=== PATIENT | female | born 1985 | race Caucasian/White ===

== ENCOUNTER 2021-08-13 14:43 | Emergency (ER) | payer OTHER, SELFPAY ==
[2021-08-13 14:49] VITALS: BP 131/95; PULSE 92; RESP 18; TEMP 36.6; O2SAT 99
--- NOTE | 2021-08-13 15:29 | ED.URI ---
HPI - URI/Sore Throat General Chief Complaint: Upper Respiratory Infection Stated Complaint: Cough, runny congestion Source: patient Mode of arrival: ambulatory Limitations: no limitations History of Present Illness HPI Narrative: 35-year-old female presents to express care with complaints of intermittent cough, wheezing, congestion and fatigue for the past 6 days. Patient has been taking [id number] cold medications with minimal relief. Patient reports that her fianc? recent similar symptoms. Patient does smoke. Patient denies recent travel. MD elicited complaint: cough and nasal congestion Onset (ago): day(s) (6) Able to tolerate fluids by mouth: No Related Data Allergies Allergy/AdvReac Type Severity Reaction Status Date / Time ibuprofen [From Advil] Allergy Swelling Verified 08/24/19 13:26 of Lip/Tongue/Throat loratadine [From Claritin] Allergy Unknown Verified 08/24/19 13:26 naproxen [From Aleve] Allergy Swelling Verified 08/24/19 13:26 of Lip/Tongue/Throat Penicillins Allergy Unknown Verified 08/24/19 13:26 Review of Systems Constitutional: Constitutional: Denies chills, Denies fever(s) and Denies weakness ENT: Reports nasal congestion and Denies sore throat Cardiovascular: Cardiovascular: Denies chest pain, Denies rapid heart rate, Denies radiating jaw, neck or arm pain and Denies slow heart rate Respiratory: Respiratory: Reports cough, Denies dyspnea and Reports wheezing Gastrointestinal: Gastrointestinal: Denies diarrhea, Denies nausea and Denies vomiting Integumentary/Breasts: Skin/Breast: Denies rash PMFSH Past Medical History Medical History Depression IBS (irritable bowel syndrome) Kidney stone PCOS (polycystic ovarian syndrome) Pulmonary embolism Surgical History Surgical History History of cholecystectomy Family History Family History Mother Hypertension Father Hypertension Grandparent , 72 Breast cancer Diabetes mellitus Cerebrovascular accident Grandparent , 83 Mesothelioma Grandparent Lung cancer Cancer of kidney Grandparent , 81 Diabetes mellitus Sibling Hypertension Social History Social History Years smoked: 15 Smoking status: Current every day smoker Tobacco type: cigarettes Alcohol intake: current Alcohol use details: once a month Substance use type: does not use Comments At time of signature, I agree with nursing past medical, surgical, social and family history. There is no relevant family history pertinent to the presenting complaint. Exam Const: General: healthy appearing and no acute distress Orientation/consciousness: patient oriented x3 HENMT: Head: normal to inspection Ears: TM's normal bilaterally and EAC's normal General nose exam: Normal external nose present and Normal nares present Face and sinus: normal facial exam Mouth: Yes moist mucous membranes Throat: uvula midline Neck: Neck: normal visual inspection Resp: Effort & Inspection: normal respiratory effort, not labored and not tachypneic Auscultation: clear to auscultation bilaterally, no rales, no rhonchi and no wheezes Cardio: Rate: regular rate Rhythm: regular rhythm Skin: General skin exam: normal color Rashes: no rashes Neuro: General: moves all extremities Psych: Affect: normal affect Attitude: cooperative Course Course Level of Care: Express Care Visit Vital Signs Vital signs: Vital Signs Temperature 36.6 C 08/13/21 14:49 Pulse Rate 92 08/13/21 14:49 Respiratory Rate 18 08/13/21 14:49 Blood Pressure 131/95 H 08/13/21 14:49 Pulse Oximetry 99 08/13/21 14:49 Temperature 36.6 C 08/13/21 14:49 Pulse Rate 92 08/13/21 14:49 Respiratory Rate 18
== END 2021-08-13 16:18 | disposition home or self-care (01) ==
PROVIDERS: Emergency Provider Nurse Practitioner Family
DX: J06.9 Acute upper respiratory infection, unspecified (principal); Z20.822 Contact with and (suspected) exposure to COVID-19; F17.210 Nicotine dependence, cigarettes, uncomplicated; E28.2 Polycystic ovarian syndrome; Z86.711 Personal history of pulmonary embolism
CPT/HCPCS: 87426; 99213; C9803; G0463

== ENCOUNTER 2023-03-07 16:02 | Emergency (ER) | payer OTHER, SELFPAY ==
--- NOTE | ~2023-03-07 | XR_ITS ---
EXAM: XR abdomen/kub 1V DATE: 03/07/2023 17:32 HISTORY: RT FLANK PAIN X 2 WEEKS. . COMPARISON: 06/14/2019. FINDINGS: Cholecystectomy clips Clear lung bases. Normal bowel gas pattern. No organomegaly. No abnor mal abdominal calcification. Regional bones and soft tissues normal for age. IMPRESSION: Unremarkable abdominal radiograph findings. Reviewed, dictated and finalized at location K.
[2023-03-07 16:13] VITALS: BP 129/76; PULSE 95; RESP 20; TEMP 37.3; O2SAT 100
--- NOTE | 2023-03-07 16:46 | ED.FEMALEGU ---
HPI - Female Genitourinary General Chief complaint: Urogenital-Female Stated complaint: Urinary Problem Time Seen by Provider: 03/07/23 16:46 Source: patient Mode of arrival: ambulatory Limitations: no limitations History of Present Illness HPI Narrative: 37 yo F presents with c/o R sided low back pain with urinary frequency, urgency, dysuria for 4 days. R back pain worse when urinating. Afebrile. Denies N/V/D. hx of kidney stones. All systems reviewed and negative except as noted above. Related Data Allergies Allergy/AdvReac Type Severity Reaction Status Date / Time ibuprofen [From Advil] Allergy Swelling Verified 03/07/23 16:21 of Lip/Tongue/Throat loratadine [From Claritin] Allergy Unknown Verified 03/07/23 16:21 naproxen [From Aleve] Allergy Swelling Verified 03/07/23 16:21 of Lip/Tongue/Throat Penicillins Allergy Unknown Verified 03/07/23 16:21 E[employer] MEDICINE Allergy Other Uncoded 03/07/23 16:21 Review of Systems Review of Systems: CONSTITUTIONAL: Denies fever, chills, or sweats. EYES: Denies visual changes, redness, or discharge. ENT: Denies rhinorrhea, congestion, sore throat, or otalgia. CARDIOVASCULAR: Denies chest pain, palpitations, or edema. RESPIRATORY: Denies cough or dyspnea. GASTROINTESTINAL: Denies abdominal pain, nausea, vomiting, or diarrhea. GENITOURINARY: Reports dysuria frequency, right flank pain. Denies hematuria. SKIN: Denies rash or itching. MUSCULOSKELETAL: Denies back pain, joint pain, or myalgia. NEUROLOGIC: Denies headache, numbness, or weakness. PSYCHIATRIC: Denies anxiety or depression. All other systems reviewed are negative, except as documented in HPI. [facility] Past Medical History Medical History Depression IBS (irritable bowel syndrome) Kidney stone PCOS (polycystic ovarian syndrome) Pulmonary embolism Surgical History Surgical History History of cholecystectomy Family History Family History Mother Hypertension Father Hypertension Grandparent , 72 Breast cancer Diabetes mellitus Cerebrovascular accident Grandparent , 83 Mesothelioma Grandparent Lung cancer Cancer of kidney Grandparent , 81 Diabetes mellitus Sibling Hypertension Social History Social History Years smoked: 15 Smoking status: Current every day smoker Tobacco type: cigarettes Alcohol intake: current Alcohol use details: once a month Substance use type: does not use Comments At time of signature, agree with nursing past medical, surgical, social and family history. There is no relevant family history pertinent to the presenting complaint. Exam Narrative: GENERAL: This is a well-nourished, well-developed patient, in no apparent distress. HEAD: normocephalic, atraumatic. EYES: PERRL. Sclera clear/white. Vision is grossly intact. EARS: External ears normal NOSE: External nose normal NECK: Neck supple, non-tender without lymphadenopathy, masses or thyromegaly. CARDIOVASCULAR: Regular rate and rhythm without murmurs, gallops, or rubs. RESPIRATORY: Clear to auscultation. Breath sounds equal bilaterally. No wheezes, rales, or rhonchi. GASTROINTESTINAL: Abdomen soft, non-tender, nondistended. Bowel sounds are active. No hepato-splenomegaly, or palpable masses. No guarding. SKIN: warm, Dry, intact with no suspicious lesions or rash, good texture and turgor. NEURO: awake, alert, and oriented to person, place and time. There were no obvious focal neurologic abnormalities. EXTREMITIES: No joint tenderness, effusion, or edema noted. BACK: Nontender without deformity. No CVA tenderness. Course Course Level of Care: Express Care Visit Vital Signs Vital signs: Vital Signs Temperatu
== END 2023-03-07 17:45 | disposition home or self-care (01) ==
PROVIDERS: Emergency Provider Nurse Practitioner Family
DX: N39.0 Urinary tract infection, site not specified (principal); F17.210 Nicotine dependence, cigarettes, uncomplicated; E28.2 Polycystic ovarian syndrome; Z86.711 Personal history of pulmonary embolism
CPT/HCPCS: 74018; 81003; 81025; 87086; 99213; G0463

== ENCOUNTER 2024-04-30 14:06 | Outpatient (CLI) | payer OTHER, SELFPAY ==
--- NOTE | ~2024-04-30 | XR_ITS ---
Supine and upright views of the abdomen Clinical history: Hematuria Findings: Bowel gas pattern is nonspecific. No evidence for obstruction or free air. There is an 8 mm ovoid stone at the left mid to lower pole. Osseous structures are intact. Impression: 8 mm mid to lower pole left renal stone. Reviewed, dictated and finalized at [facility]. Impression: 8 mm mid to lower pole left renal stone.
--- NOTE | ~2024-04-30 | CT_ITS ---
CT of the Abdomen and Pelvis: Indication: Gross hematuria Technique: 2.5 mm axial scans were obtained through the abdomen and pelvis prior to and following in travenous administration of 130 cc of Omnipaque 350. Dose reduction technique was used on this scan b y utilizing automated exposure control and iterative reconstruction technique. The dose-length produc t (DLP) was 3820.41 mGy-cm. Findings: Scans through the lung bases are unremarkable. The liver, spleen, pancreas, adrenals and right kidney are within normal limits. There is an 8 mm ovo id stone at the left renal pelvis. No hydronephrosis. Cholecystectomy clips are present. No evidence of aortic aneurysm. No lymphadenopathy. No bowel obstruction or bowel wall thickening. There is no evidence to suggest acute appendicitis. Images through the pelvis were performed. Urinary bladder unremarkable. No pelvic mass seen. No ascit es. Impression: 8 mm nonobstructing ovoid stone at the left renal pelvis. Reviewed, dictated and finalized at location . Impression: 8 mm nonobstructing ovoid stone at the left renal pelvis.
[2024-04-30 14:45] LABS: Estimated Glomerular Filt Rate > 60
== END 2024-04-30 14:07 | disposition home or self-care (01) ==
PROVIDERS: Visit Provider Urology
DX: N20.0 Calculus of kidney (principal)
CPT/HCPCS: 74018; 74178; Q9967

== ENCOUNTER 2024-05-09 15:03 | Outpatient (CLI) | payer OTHER, SELFPAY ==
--- NOTE | 2024-05-09 15:08 | ECG_ITS ---
Test Date: 2024-05-09 15:14:39 Measurements Intervals [place] Rate: 92 P: 29 ID: [id number] QRS: 14 QRSD: 87 T: 38 QT: 343 QTc: 425 Interpretive Statements SINUS RHYTHM NORMAL ELECTROCARDIOGRAM No previous ECG available for comparison Electronically Signed On 05-10-2024 07:51:48 CDT by Ruben Brown M.D.
[2024-05-09 15:31] LABS: Add Urine Microscopic? YES; Appearance Urine Clear (Clear); Bacteria Urine None Seen /hpf; Bilirubin Urine Negative (Negative); Blood Urine 3+ (Negative); Color Urine Yellow (Yellow); Glucose Urine UA Negative (Negative); Ketones Urine Negative (Negative); Leukocyte Esterase Ur Trace LEU/UL (Negative); Nitrate Urine Negative (Negative); Non Pathogenic Casts 0-2; Protein Urine Trace mg/dL (Negative); RBC Urine 21-50 /hpf (0-2); Specific Grav Ur 1.009 (1.001-1.035); Squamous Epithelial Cell Urine Occasional /hpf (Few); Urobilinogen Urine 0.2 mg/dL (<2.0); WBC Urine 0-5 /hpf (0-3); pH Urine 5.5 (5.0-9.0)
[2024-05-09 15:36] LABS: Prothrombin Time 13.3 Seconds (11.1-14.7)
[2024-05-09 15:37] LABS: Partial Thromboplastin Time 24.5 Seconds (22.3-36.8)
[2024-05-09 15:43] LABS: Anion Gap 8 mmol/L (4-12); Blood Urea Nitrogen 10 mg/dL (7-17); Calcium 8.8 mg/dL (8.4-10.2); Carbon Dioxide 24 mmol/L (22-30); Chloride 106 mmol/L (98-107); Estimated Glomerular Filt Rate > 60; Glucose 87 mg/dL (65-110); Potassium 3.7 mmol/L (3.4-5.0); Sodium 138 mmol/L (137-145)
== END 2024-05-09 15:04 | disposition home or self-care (01) ==
LOC: ANHSURGERY 15:06
PROVIDERS: Anesthesiology; PCP Family Medicine; Visit Provider Urology
DX: Z01.812 Encounter for preprocedural laboratory examination (principal); N20.0 Calculus of kidney; E11.9 Type 2 diabetes mellitus without complications
CPT/HCPCS: 36415; 80048; 81001; 85610; 85730; 93005

== ENCOUNTER 2024-05-11 04:24 | Day surgery (SDC) | payer OTHER, SELFPAY ==
[2024-05-09 12:00] VITALS: BMI 41.7
--- NOTE | 2024-05-09 12:01 | PC.NURSE ---
Report to the Outpatient Waiting Room, entrance under the green pavilion located off [facility], at time _1130_ on date _[id number]_. Planned Procedure Time: _130pm_.? Time changes happen often and if your time is changed the preop area will call you the afternoon before. - You and your visitor will be asked to self-screen and do not enter if you have any COVID symptoms. Please call surgeon if you need to reschedule. - A mask is optional within the hospital at this time. Patients may have clear liquids (water, carbonated beverages, clear teas, apple juice) until 3 hours prior to surgery with a maximum of 20 ounces. - No food from midnight until time of surgery and no smoking Take only the following medications with a SIP of water on the morning of surgery: __None DO NOT STOP ANY OF YOUR OTHER PRESCRIPTION MEDICATIONS PRIOR TO SURGERY EXCEPT THE FOLLOWING Medications to discontinue per physician __None Please no make-up, nail hebrew, hairspray, perfume, deodorant, or body powder the day of surgery.? No jewelry (including any body piercings) or valuables the day of surgery, leave them at home.? Please take a shower or bath the night before, or the morning of, surgery with an antibacterial soap.? Wear comfortable, loose fitting clothing.? - Jewelry must be removed prior to entering the operating room.? Rings and piercings that are not removed may be cut off. - The hospital will not accept responsibility for valuables.? - Please leave all valuables, including medications, at home the day of surgery. If you are going home after surgery, a licensed wedding transportation driver must drive you home.? - NO public transportation without another adult if you receive anesthesia. - We recommend that an adult stay with you for 24 hours following discharge. - We also recommend that you do not drive, make important decision, drink alcoholic beverages, or take any drugs that were not prescribed by your health care provider for at least 24 hours after your discharge time. Follow any additional instructions given to you from your surgeon. Telephone instructions given to __Mandi__and asked if any additional questions and then verbalized understanding. Patient advised to call surgeon office or pre surgery nurse liaison [phone] if any additional questions.
[2024-05-11] VITALS (8 sets, daily range): BP systolic 133–153; BP diastolic 85–104; PULSE 60–93; RESP 12–20; TEMP 37–37.3; O2SAT 94–100
--- NOTE | ~2024-05-11 | XR_ITS ---
EXAMINATION: XR abdomen/kub 1V DATE: 05/11/2024 12:01 INDICATION: Kidney stone. TECHNIQUE: A supine view of the abdomen on 2 radiographs was obtained. COMPARISON: Abdomen radiographs 04/30/2024, CT abdomen and pelvis 04/30/2024 FINDINGS: There are no dilated loops of bowel. Surgical clips in the right upper quadrant are likely from cholecystectomy. There is a 7 mm stone in left kidney. IMPRESSION: 1. 7 mm stone in left kidney. Reviewed, dictated and finalized at location A.
--- NOTE | 2024-05-11 06:34 | WPDHPUPDATE1 ---
History and Physical Update Update Date/Time: 05/11/24 06:34 History and Physical has been reviewed, including an updated exam of the patient. There are NO changes in the patient's condition. Risks, benefits, and alternatives have been discussed and questions answered. Patient agrees to proceed with procedure.
--- NOTE | 2024-05-11 10:12 | WPDANESEPPF ---
Anes - Initial Pre Proc Eval Procedure: Operation Date: 05/11/24 13:30 Proposed Procedures p Left Extracorporeal Shock Wave Lithotripsy - Hayden Serrato MD s Possible Cystoscopy, Left Stent Placement - Hayden Serrato MD Date/Time: 05/11/24 10:12 Surgeon: Hayden Serrato MD Pre Op Diagnosis: Left Renal Kidney Stone Patient Data Age: 38 Gender: F Height: 1.77 m Weight: 130 kg Allergies Allergy/AdvReac Type Severity Reaction Status Date / Time ibuprofen [From Advil] Allergy Swelling Verified 05/14/24 18:07 of Lip/Tongue/Throat loratadine [From Claritin] Allergy Unknown Verified 05/14/24 18:07 naproxen [From Aleve] Allergy Swelling Verified 05/14/24 18:07 of Lip/Tongue/Throat Penicillins Allergy Unknown Verified 05/14/24 18:07 [employer] MEDICINE Allergy Other Uncoded 05/14/24 18:07 Home Medications Medication Instructions Recorded Confirmed Type atorvastatin 10 mg tablet 10 mg PO HS 05/09/24 05/09/24 History escitalopram oxalate 10 mg tablet 10 mg PO HS 05/09/24 05/09/24 History metformin 500 mg tablet,extended 500 mg PO HS 05/09/24 05/09/24 History release 24 hr semaglutide 0.25 mg or 0.5 mg (2 0.5 mg subcut WEEKLY 05/09/24 05/09/24 History mg/3 mL) subcutaneous pen injector (Ozempic) hydrocodone 5 mg-acetaminophen 325 1 - 2 tablet PO Q6H PRN pain #20 05/11/24 Rx mg tablet tabs metoclopramide HCl 10 mg tablet 10 mg PO Q6H PRN nausea and 05/14/24 Rx (Reglan) vomiting #14 tabs ondansetron 4 mg disintegrating 4 mg PO Q8H PRN nausea and 05/14/24 Rx tablet vomiting #14 tabs oxycodone-acetaminophen 5 mg-325 1 tablet PO Q8H PRN pain #14 tabs 05/14/24 Rx mg tablet (Percocet) Patient hx anesthesia problems: none Family hx anesthesia problems: none Results Review: All pre-operative results and documents have been reviewed as part of the pre-operative evaluation. [facility] Past Medical History Medical History (Updated 05/15/24 @ 00:00 by Fariha Ge) Depression Diabetes type 2, controlled Hyperlipidemia IBS (irritable bowel syndrome) Kidney stone PCOS (polycystic ovarian syndrome) Pulmonary embolism Surgical History Surgical History History of cholecystectomy Family History Family History Mother Hypertension Father Hypertension Grandparent , 72 Breast cancer Diabetes mellitus Cerebrovascular accident Grandparent , 83 Mesothelioma Grandparent Lung cancer Cancer of kidney Grandparent , 81 Diabetes mellitus Sibling Hypertension Social History Social History Smoking packs per day: 1 Smoking cigarettes per day: 20.0 Years smoked: 14 Smoking pack-years: 14.00 Smoking status: Former smoker Tobacco type: cigarettes and e-cigarettes/vaping Additional smoking assessment comments: Vapes now. Alcohol intake: current Alcohol use details: once a month Substance use type: does not use Living arrangements: with family Spiritual care concerns: No Anes - Eval Final PreProcedure Day of Procedure 05/11/24 10:12 Patient weight: morbidly obese Heart: regular rate and rhythm Lungs: clear to auscultation Airway: Mallampati scale class II Neurological: alert and oriented Last oral intake: >/= 8 hours ASA classification: III Emergent: no Anesthetic plan: proceed Anesthesia type and monitoring: general LMA and standard monitoring Results Review: All pre-operative results and documents have been reviewed as part of the pre-operative evaluation. Informed Consent: The patient's anesthetic plan and its attendant risks and benefits were discussed with the patient/family/POA. Questions were solicited and answers provided to the satisfaction of the patient/family/POA.
[2024-05-11] MEDS: LACTATED RINGERS 1,000 ML 30 ML IV CONT (12:00)
--- NOTE | 2024-05-11 12:26 | P.PNAN_ITS ---
Anes - Eval Final PreProcedure Day of Procedure 05/11/24 12:26 Patient weight: morbidly obese Heart: regular rate and rhythm Lungs: clear to auscultation Airway: Mallampati scale class III Neurological: alert and oriented Last oral intake: >/= 8 hours ASA classification: III Emergent: no Anesthetic plan: proceed Anesthesia type and monitoring: general LMA and standard monitoring Results Review: All pre-operative results and documents have been reviewed as part of the pre- operative evaluation. Informed Consent: The patient's anesthetic plan and its attendant risks and benefits were discussed with the patient/family/POA. Questions were solicited and answers provided to the satisfaction of the patient/family/POA.
[2024-05-11 12:27] LABS: Glucose Point of Care 90 mg/dl (65-105)
[2024-05-11] MEDS: ceFAZolin 3 GM/D5W 100 ML 100 ML IVPB (12:39)
--- NOTE | 2024-05-11 12:56 | W.PM.PROC2 ---
Procedure Note - Detailed Date of Procedure 05/11/24 Pre-op Diagnosis Left Renal Stone Post-op Diagnosis Same Procedure Performed Left ESWL Surgeon Hayden Serrato MD Anesthesia General Description of Procedure The patient was brought to the operative suite where she was placed in the supine position on the Dornier lithotripsy table. The focal point of the lithotripter was placed at a 8mm left lower calyceal calculus. A total of 2500 shocks were delivered at a power setting of 4. There appeared to be good fragmentation of the stone. The patient tolerated the procedure well and was taken to the recovery room in good condition. Drains No Pathology None sent Complications No immediate complications Condition Stable Disposition PACU
[2024-05-11] MEDS: fentaNYL CITRATE INJ (*CRX) 100 MCG/2 ML VIAL 25 MCG IV PUSH ×2 (13:45→13:56)
--- NOTE | 2024-05-11 13:48 | SUR.PHASEI ---
1340: Simple mask removed.
[2024-05-11 13:56] LABS: Glucose Point of Care 80 mg/dl (65-105)
[2024-05-11] MEDS: ONDANSETRON INJ 4 MG/2 ML VIAL IV PUSH (14:43)
== END 2024-05-11 15:09 | disposition home or self-care (01) ==
PROVIDERS: PCP Family Medicine; Visit Provider Urology
PROC: (CPT 50590; principal; 2024-05-11 13:30)
DX: N20.0 Calculus of kidney (principal); E11.9 Type 2 diabetes mellitus without complications; E78.5 Hyperlipidemia, unspecified; F32.A Depression, unspecified; Z79.84 Long term (current) use of oral hypoglycemic drugs; Z79.85 Long-term (current) use of injectable non-insulin antidiabetic drugs; F17.290 Nicotine dependence, other tobacco product, uncomplicated; E66.01 Morbid (severe) obesity due to excess calories; Z68.41 Body mass index [BMI] 40.0-44.9, adult
CPT/HCPCS: 50590; 36415; 74018; 80048; 81001; 82948; 85610; 85730; 93005; J0690; J1100; J2003; J2405; J2704; J3010; J7120

== ENCOUNTER 2024-05-14 16:56 | Emergency (ER) | payer OTHER, SELFPAY ==
--- NOTE | ~2024-05-14 | XR_ITS ---
EXAMINATION: XR abdomen/kub 1V DATE: 05/14/2024 18:59 INDICATION: Left flank pain. TECHNIQUE: A supine view of the abdomen on 2 radiographs was obtained. COMPARISON: CT abdomen and pelvis 05/14/2024 FINDINGS: There are no dilated loops of bowel. There is a 3 mm stone in left kidney. There is a 3 mm stone at left ureterovesicular junction. Surgical clips in the right upper quadrant are likely from c holecystectomy. IMPRESSION: 1. 3 mm at the left ureterovesicular junction. 2. 3 mm in left kidney. Reviewed, dictated and finalized at location A.
--- NOTE | ~2024-05-14 | CT_ITS ---
EXAMINATION: CT abdomen pelvis wo con DATE: 05/14/2024 18:58 INDICATION: Left flank pain. TECHNIQUE: Computed tomography (CT) of the abdomen and pelvis was performed without intravenous contr ast. Automated exposure control and iterative reconstruction technique were employed. The dose-length product was 1683.24 mGy-cm. COMPARISON: CT abdomen and pelvis 04/30/2024 FINDINGS: The visualized portions of the lung bases demonstrate minimal atelectasis. Calcified right hilar lymph nodes are consistent with old granulomatous disease. No pleural effusion. The heart size is normal. No pericardial effusion. There is diffuse hepatic steatosis. There are changes of cholecys tectomy. Calcifications in the spleen are consistent with old granulomatous disease. The pancreas, ad renal glands, and right kidney are normal. There is a 3 mm stone in left kidney. There is mild left h ydronephrosis and hydroureter. There is a 3 mm stone at left ureterovesicular junction. There is dive rticulosis of the colon without evidence of diverticulitis. There are no dilated loops of bowel. The appendix is normal. There are no pathologically enlarged lymph nodes. There is no free intraperitonea l fluid. There is mild thoracic and lumbar spondylosis. There is mild chronic anterior wedging of mul tiple lower thoracic vertebral bodies. IMPRESSION: 1. 3 mm stone at left ureterovesicular junction with mild left hydronephrosis and hydroureter. 2. 3 mm nonobstructing left kidney stone. Reviewed, dictated and finalized at location A. IMPRESSION: 1. 3 mm stone at left ureterovesicular junction with mild left hydronephrosis a nd hydroureter. 2. 3 mm nonobstructing left kidney stone.
[2024-05-14 17:15] VITALS: BP 157/96; PULSE 59; RESP 16; TEMP 36.7; O2SAT 99
[2024-05-14 18:07] VITALS: BP 150/92; PULSE 67; RESP 15; O2SAT 98
[2024-05-14] MEDS: ONDANSETRON INJ 4 MG/2 ML VIAL IV PUSH (18:08)
[2024-05-14] MEDS: SODIUM CHLORIDE 0.9% IV 1,000 ML 999 ML IV CONT (18:08)
--- NOTE | 2024-05-14 18:12 | ED.BACK ---
HPI - Back Pain/Injury General Chief Complaint: Back Pain/Injury Stated Complaint: PAIN S/P LITHOTRIPSY Time Seen by Provider: 05/14/24 17:44 History of Present Illness HPI Narrative: 38-year-old female presented emergency department for evaluation for recurrent flank pain. Patient did have lithotripsy on Tuesday and states that while she was having some recurrent nausea her pain was controlled. Patient states that today she had worsening left flank pain and then had worsening nausea. Patient arrived to the emergency department looking uncomfortable. Related Data Home Medications Medication Instructions Recorded Confirmed atorvastatin 10 mg tablet 10 mg PO HS 05/09/24 05/09/24 escitalopram oxalate 10 mg tablet 10 mg PO HS 05/09/24 05/09/24 metformin 500 mg tablet,extended 500 mg PO HS 05/09/24 05/09/24 release 24 hr semaglutide 0.25 mg or 0.5 mg (2 0.5 mg subcut WEEKLY 05/09/24 05/09/24 mg/3 mL) subcutaneous pen injector (ZyrraempBiba) Allergies Allergy/AdvReac Type Severity Reaction Status Date / Time ibuprofen [From Advil] Allergy Swelling Verified 05/14/24 18:07 of Lip/Tongue/Throat loratadine [From Claritin] Allergy Unknown Verified 05/14/24 18:07 naproxen [From Aleve] Allergy Swelling Verified 05/14/24 18:07 of Lip/Tongue/Throat Penicillins Allergy Unknown Verified 05/14/24 18:07 [employer]ER[employer] MEDICINE Allergy Other Uncoded 05/14/24 18:07 Review of Systems Review of Systems: All systems reviewed & are unremarkable except as noted in HPI and below PMFSH Past Medical History Medical History (Updated 05/15/24 @ 00:00 by Fariha Ge) Depression Diabetes type 2, controlled Hyperlipidemia IBS (irritable bowel syndrome) Kidney stone PCOS (polycystic ovarian syndrome) Pulmonary embolism Surgical History Surgical History History of cholecystectomy Family History Family History Mother Hypertension Father Hypertension Grandparent , 72 Breast cancer Diabetes mellitus Cerebrovascular accident Grandparent , 83 Mesothelioma Grandparent Lung cancer Cancer of kidney Grandparent , 81 Diabetes mellitus Sibling Hypertension Social History Social History Smoking packs per day: 1 Smoking cigarettes per day: 20.0 Years smoked: 14 Smoking pack-years: 14.00 Smoking status: Former smoker Tobacco type: cigarettes and e-cigarettes/vaping Additional smoking assessment comments: Vapes now. Alcohol intake: current Alcohol use details: once a month Substance use type: does not use Living arrangements: with family Spiritual care concerns: No Exam Narrative: APPEARANCE: uncomfortable appearing HEAD: normocephalic, atraumatic. EYES: PERRLA/EOMI, conjunctivae clear. NOSE: Normal no drainage EARS:TMS clear with good light reflex. THROAT: Pharynx clear, no exudate. NECK: Supple. No adenopathy, no masses. RESPIRATORY: Airway patent, respirations nonlabored. Clear to auscultation bilaterally, no rales, rhonchi, wheezing. CARDIOVASCULAR: Regular rate and rhythm without murmurs rubs or gallops. ABDOMINAL: Soft, nontender, nondistended, normal bowel sounds MUSCULOSKELETAL: Moves all extremities. Strength/ROM intact, No edema, No calf tenderness. NEURO: Alert. Cranial nerves II through XII intact. grossly intact SKIN: Warm, dry. Normal Color Course Vital Signs Vital signs: Vital Signs Temperature 98.1 F 05/14/24 17:15 Pulse Rate 59 L 05/14/24 17:15 Respiratory Rate 16 05/14/24 17:15 Blood Pressure 157/96 H 05/14/24 17:15 Pulse Oximetry 99 05/14/24 17:15 Oxygen Delivery Room Air 05/14/24 17:15 Temperature 98.1 F 05/14/24 17:15 Pulse Rate 86 05/14/24 20:33 Respiratory Rate 18 05/14/24 20:33 Blood Pressure
[2024-05-14] MEDS: HYDROmorphone HCL INJ (*CRX) 1 MG/ML SYR 0.5 MG IV PUSH (18:30)
[2024-05-14 18:35] LABS: Hematocrit 42.6 % (37.0-47.0); Hemoglobin 14.5 g/dL (12.0-15.0); Mean Corpuscular Hemoglobin 31.8 pg (26-34); Mean Corpuscular Volume 93.4 fl (80-100); Mean Platelet Volume 11.3 fl (7.4-10.4); Platelet Count Result 233 k/mm3 (150-375); Red Blood Count 4.56 M/mm3 (4.2-5.4); Red Cell Distribution Width 12.5 % (11.5-14.5); White Blood Count 12.2 K/mm3 (4.5-10.0)
[2024-05-14] MEDS: METOCLOPRAMIDE HCL INJ 10 MG/2 ML VIAL IV PUSH (18:39)
[2024-05-14 18:46] LABS: Alanine Aminotransferase 34 U/L (6-35); Albumin Level 4.5 g/dL (3.5-5.1); Alkaline Phosphatase 78 U/L (38-126); Anion Gap 12 mmol/L (4-12); Aspartate Amino Transferase 25 U/L (14-36); Bilirubin,Total 0.6 mg/dL (0.2-1.3); Blood Urea Nitrogen 23 mg/dL (7-17); Calcium 9.5 mg/dL (8.4-10.2); Carbon Dioxide 25 mmol/L (22-30); Chloride 102 mmol/L (98-107); Estimated CRCL calculation 87 ml/min; Estimated Glomerular Filt Rate 55; Glucose 133 mg/dL (65-110); Potassium 3.9 mmol/L (3.4-5.0); Sodium 139 mmol/L (137-145)
[2024-05-14 19:21] VITALS: BP 150/86; PULSE 60; RESP 18; O2SAT 96
[2024-05-14] MEDS: diphenhydrAMINE HCl INJ 50 MG/ML VIAL 25 MG IV PUSH (19:34)
[2024-05-14] MEDS: HYDROmorphone HCL INJ (*CRX) 1 MG/ML SYR IV PUSH (19:35)
[2024-05-14 19:44] LABS: Add Urine Microscopic? YES; Appearance Urine Clear (Clear); Bacteria Urine Rare /hpf; Bilirubin Urine Negative (Negative); Blood Urine 2+ (Negative); Color Urine Yellow (Yellow); Glucose Urine UA Negative (Negative); Ketones Urine 1+ mg/dL (Negative); Leukocyte Esterase Ur Negative LEU/UL (Negative); Nitrate Urine Negative (Negative); Non Pathogenic Casts 0-2; Protein Urine Trace mg/dL (Negative); RBC Urine 21-50 /hpf (0-2); Squamous Epithelial Cell Urine Occasional /hpf (Few); WBC Urine 0-5 /hpf (0-3); pH Urine 5.5 (5.0-9.0)
[2024-05-14 20:33] VITALS: BP 169/90; PULSE 86; RESP 18; O2SAT 99
[2024-05-14] MEDS: oxyCODONE/ACETAMINOPHEN (*CRX) 5-325 MG TABLET 1 TABLET PO (20:38)
== END 2024-05-14 20:45 | disposition home or self-care (01) ==
PROVIDERS: Emergency Provider Emergency Medicine; PCP Family Medicine
DX: N13.2 Hydronephrosis with renal and ureteral calculous obstruction (principal); E11.9 Type 2 diabetes mellitus without complications; E78.5 Hyperlipidemia, unspecified; E28.2 Polycystic ovarian syndrome; K58.9 Irritable bowel syndrome, unspecified; F32.A Depression, unspecified; F17.290 Nicotine dependence, other tobacco product, uncomplicated; Z87.442 Personal history of urinary calculi; Z86.711 Personal history of pulmonary embolism; Z90.49 Acquired absence of other specified parts of digestive tract; Z79.85 Long-term (current) use of injectable non-insulin antidiabetic drugs; Z79.84 Long term (current) use of oral hypoglycemic drugs; Z79.899 Other long term (current) drug therapy
CPT/HCPCS: 36415; 74018; 74176; 80053; 81001; 85025; 96361; 96374; 96375; 96376; 99284; A9270; J1171; J1200; J2405; J2765; J7030

== ENCOUNTER 2024-05-22 14:16 | Outpatient (CLI) | payer OTHER, SELFPAY ==
--- NOTE | ~2024-05-22 | XR_ITS ---
XR abdomen/kub 1V 05/22/2024 14:30 INDICATION: Recent left-sided stone TECHNIQUE: KUB COMPARISON: Comparison to multiple prior studies sequentially, with oldest reviewed study dated 01/2023. FINDINGS: Bowel gas pattern is normal. There are cholecystectomy clips. There is no evidence of free air, mass, organomegaly, ascites or obstruction. No abnormal calculi are seen. The bones appear int act. IMPRESSION: 1: No acute abdominal abnormality identified. Reviewed, dictated and finalized at location B.
== END 2024-05-22 14:17 | disposition home or self-care (01) ==
LOC: ANHIMG 14:19
PROVIDERS: PCP Family Medicine; Visit Provider Urology
DX: N20.0 Calculus of kidney (principal)
CPT/HCPCS: 74018

== ENCOUNTER 2024-07-13 15:16 | Outpatient (CLI) | payer OTHER, SELFPAY ==
--- NOTE | ~2024-07-13 | MM_ITS ---
EXAMINATION: MM screening isaura BI w donna HISTORY: Screening TECHNIQUE: Craniocaudal and mediolateral oblique 3-D tomosynthesis images were obtained and synthetic 2-D images were generated. CAD analysis was submitted and interpreted. COMPARISON: No prior mammogram is available for comparison at this institution. BREAST PARENCHYMAL COMPOSITION: Not Dense: The breasts are almost entirely fatty. FINDINGS: There is no evidence of suspicious mass, calcification, or architectural distortion to sugg est malignancy in either breast. There has been no suspicious interval change. IMPRESSION: 1. No mammographic evidence of malignancy. 2. Recommend routine screening mammography in one year. BI-RADS Category 1: Negative Reviewed, dictated and finalized at location B. 'S MASTER
--- OUTSIDE RECORDS SUMMARY | 2024-07-17 01:24 | XMS_ITS | Encounter Summary ---
Author Organization [facility] Address [address] [email or web address] [address] Phone Care Team Providers Care Knowledge Analyst Name Role Phone Wesley Hardy MD Primary Care Provider [phone] Reason for Visit * Reason Comments New Patient * Consultation (Routine) - Canceled Specialty Diagnoses / Procedures Referred By Contac t Referred To Contact Obstetrics and Gynecology Diagnoses Polycystic ovaries Annual visit for general adult medical examination with abnormal findings Wesley Hardy MD Phone: tel: fax: Shena Tiwari MD Phone: tel: fax: Referral ID Status Reason Start Date Expiration Date Visits Requested Visits Authorized [id number] Canceled Specialty Services Required 04/20/2017 10/17/2017 12 12 Encounter Details Date Type Department Care Team (Late st Contact Info) Description 05/11/2017 3:00 PM CDT Office Visit [facility] [address] [email or web address] [address] Sehna Tiwari MD [address] [place] [id number] Encounter for gynecological examination without abnormal finding (Primary Dx); Polycystic ovarian syndrome Social History Tobacco Use Types Packs/Day Years Used Date Smoking Tobacco: Former Cigarettes 1 13.7 2 004 - 04/2017 Smokeless Tobacco: Never Alcohol Use Standard Drinks/Week Comments Yes 0 (1 standard drink = 0.6 oz pur e alcohol) Comments Unknown Sex and Gender Information Value Date Recorded Sex Assigned at Not on file 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 Gender Identity Not on file Sexual Orientation Not on file Occupation Industry Job Start Date Job End Date Not on file Not on file Not on file Not on file documented as of this encounter Last Filed Vital Signs Vital Sign Reading Time Taken Comments Blood Pressure 112/82 05/11/2017 2:45 PM CDT Pulse - - Temperature - - Respiratory Rate - - Oxygen Saturation - - Inhaled Oxygen Concentration - - Weight 118.4 kg (261 lb) 05/11/2017 2:45 PM CDT Height 176.5 cm (5' 9.5 ) 05/11/2017 2:45 PM CDT Body Mass Index 37.99 05/11/2017 2:45 PM CDT documented in this encounter Ordered Prescriptions Prescription Sig Dispense Quantity Refills Last Filled Start Date End Date medroxyPROGESTERon e (PROVERA) 10 mg tabletIndications: Polycystic ovarian syndrome Take 1 tablet (10 mg total) by mouth daily for 10 days. Each month 30 tablet 3 05/11/2017 05/21/2017 documented in this encounter Progress Notes * Shena Tiwari MD - 05/11/2017 3:00 PM CDT Well Woman Exam Subjective: Anny Rodriguez is a 31 y.o. 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 Last Pap 2014. Denies h/o abnormal. She reports a h/o PCOS diagnosed around 10 years when trying to conceive. EMB 2 years ago was normal, per patient. Last normal cycle was 08/2014. She stopped OCPs when had a blood clot in 2014. She was recently evaluated by endocrine, Dr. Goodwin. TSH, FT4, testosterone, DHEAS, LH, FSH, estradiol andprolactin were all WNL. Denies desire for at this time. Menstrual History: No LMP recorded (lmp unknown). Sexual History: OB History Para Term AB Living 0 0 0 0 0 0 SAB TAB Ectopic Multiple Live Births 0 0 0 0 0 Past Medical History: Diagnosis Date ??? Anxiety disorder Anxiety ??? HX OTHER MEDICAL ammenorhea Current Outpatient Prescriptions: ??? buPROPion (WELLBUTRIN) 100 mg tablet, Take 1 tablet (100 mg total) by mouth 2 (two) times a day., Disp: 60 tablet, Rfl: 11 ??? fluticasone (FLONASE) 50 mcg/actuation nasal spray, Administer 1 spray into each nostril daily., Disp: , Rfl: ??? hydrocortisone 1 % cream, Apply topically 2 (two) times a day., Disp: , Rfl: ??? medroxyPROGESTERone (PROVERA) 10 mg tablet, Take 1 tablet (10 mg total) by mouth daily for 10 days. Each month, Disp: 30 tablet, Rfl: 3 Allergies Allergen Reactions ??? Prochlorperazine Angioedema Reaction: FACIAL SWELLING, ??? Aleve Cold And Sinus [Naproxen-Pseudoephedrine] Unknown ??? Chlorpheniramine ??? Ibuprofen ??? Naproxen ??? Penicillin G ??? Penicillins ??? Pseudoephedrine ??? Venom-Honey Bee Unknown Family History Problem Relation Age of Onset ??? Diabetes type II Other Family history of Diabetes -Type II; ??? Hyperlipidemia Other Family history of Hyperlipidemia; ??? Hypertension Other Family history of Hypertension; ??? Pulmonary embolism Brother ??? Breast cancer Paternal Grandmother ??? Endometriosis Mother Social History Social History ??? Marital status: Spouse name: N/A ??? Number of children: 0 ??? Years of education: N/A Occupational History ??? [employer] Social History Main Topics ??? Smoking status: Former Smoker Packs/day: 1.00 Start date: 2003 Quit date: 04/2017 ??? Smokeless tobacco: Never Used ??? Alcohol use Yes ??? Drug use: No ??? Sexual activity: Yes Partners: Male Other Topics Concern ??? None Social History Narrative ??? None Review of Systems Constitutional: Negative for fatigue, fever and unexpected weight change. HENT: Negative for congestion, hearing loss, postnasal drip, tinnitus, trouble swallowing and voicechange. Eyes: Negative for visual disturbance. Respiratory: Negative for shortness of breath and wheezing. Cardiovascular: Negative for chest pain and palpitations. Gastrointestinal: Positive for diarrhea. Negative for abdominal pain, blood in stool, nausea and vomiting. Endocrine: Negative for cold intolerance and heat intolerance. Genitourinary: Positive for menstrual problem. Negative for dysuria, frequency, hematuria, urgency,vaginal bleeding and vaginal discharge. Musculoskeletal: Negative for arthralgias and back pain. Skin: Negative for rash. Neurological: Negative for dizziness, seizures, syncope and headaches. Psychiatric/Behavioral: Negative for sleep disturbance. The patient is not nervous/anxious. Objective: BP 112/82 Ht 176.5 cm (5' 9.5 ) Wt 261 lb (118.4 kg) LMP (LMP Unknown) BMI 37.99 kg/m?? Physical Exam Constitutional: She is oriented to person, place, and time. She appears well- developed and well-nourished. Genitourinary: Vagina normal and uterus normal. Right labia: normal. Left Labia: normal. No vaginal discharge found. Right adnexa normal. Left adnexa normal. Cervix: Normal exam. Genitourinary Comments: Pap collected. Cardiovascular: Normal rate and regular rhythm. Pulmonary/Chest: Effort normal and breath sounds normal. Right breast exhibits no mass. Left breastexhibits no mass. Abdominal: Soft. There is no tenderness. Musculoskeletal: She exhibits no edema or tenderness. Neurological: She is alert and oriented to person, place, and time. Skin: Skin is warm and dry. Psychiatric: She has a normal mood and affect. Her behavior is normal. Assessment and Plan: Anny Rodriguez is a 31 y.o. female who presents for a well woman exam. 1. Encounter for gynecological examination without abnormal finding Pap and HPV collected. Return for annual or PRN. 2. Polycystic ovarian syndrome Discussed diagnosis and management options. Reviewed recent normal labs and endocrine visit. Recommend Provera now to induce a cycle. Discussed long-term options to prevent prolonged amenorrhea, which increases risk of endometrial hyperplasia/malignancy. Recommend avoid estrogen given h/o pulmonaryembolus. Discussed progesterone only methods including daily v cyclic provera, Depo, Nexplanon or IUD. She elects for cyclic Provera. - medroxyPROGESTERone (PROVERA) 10 mg tablet; Take 1 tablet (10 mg total) by mouth daily for 10 days. Each month Dispense: 30 tablet; Refill: 3 Recommended screenings and preventive care discussed: Pap smear: Performed Diet and exercise discussed. Contraception reviewed. Shena Tiwari MD 05/11/2017 documented in this encounter Plan of Treatment Not on file documented as of this encounter Visit Diagnoses Diagnosis Encounter for gynecological examination without abnormal finding- Primary Polycystic ovarian syndrome Polycystic ovaries documented in this encounter Care Teams Knowledge Analyst Relationship Specialty Start Date End Date Wesley Hardy MD [address] [place] [address] [place] [id number] PCP - General Infectious Diseases 04/20/17 documented as of this encounter
--- OUTSIDE RECORDS SUMMARY | 2024-07-17 01:24 | XMS_ITS | Encounter Summary ---
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 - 08/04/2017 11:59 PM TOOL AND DIE MAKER/DESIGNER Hospital Encounter [facility] [address] [place] [address] Melanie Calix NP [address] [place] [address] Pain of left calf Discharge Disposition: Discharge to home or self care Social History Tobacco Use Types Packs/Day Years Used Date Smoking Tobacco: Former Cigarettes 1 13.7 2 - 04/2017 Smokeless Tobacco: Never Alcohol Use Standard Drinks/Week Comments Yes 0 (1 standard drink = 0.6 oz pur e alcohol) Comments Unknown Sex and Gender Information Value Date Recorded Sex Assigned at Not on file 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 hydrocortisone 1 % creamIndications: Eczema, unspecified type Apply topically 2 (two) times a day. buPROPion (WELLBUTRIN) 100 mg tabletIndications :Persistent mood disorder (HCC) Take 1 tablet (100 mg total) by mouth 2 (two) times a day. 60 tablet 11 04/20/2017 8 documented as of this encounter Discharge Disposition Disposition Code Departure Means Destination Discharge to home or self care documented in this encounter Plan of Treatment Not on file documented as of this encounter Procedures Procedure Name Priority Date/Time Associated Diagnosis Comments US VEIN DUPLEX LOWER EXTREMITY LEFT LIMITED Schedule Routine, Read Routine (OP Routine) 08/04/2017 11:37 AM TOOL AND DIE MAKER/DESIGNER Pain of left calf documented in this encounter Results * US Vein Duplex Lower Extremity Left (08/04/2017 11:37 AM TOOL AND DIE MAKER/DESIGNER) Anatomical Region Laterality Modality Vascular Left Ultrasound Impressions 08/04/2017 12:01 PM TOOL AND DIE MAKER/DESIGNER NORMAL ??LEFT ??LOWER EXTREMITY VENOUS DOPPLER STUDY. Electronically signed by: Garfield Resendez M.D. Narrative 08/04/2017 12:01 PM TOOL AND DIE MAKER/DESIGNER US VEIN DUPLEX LOWER EXTREMITY LEFT HISTORY: Pain in left lower leg. ??Left lower extremity pain and swelling. ??History of pulmonary embolism. COMPARISON: None available. FINDINGS: Left lower extremity venous Doppler interrogation reveals normal grayscale echogenicity, color flow and compressibility. ??No extraneous abnormalities are present. Procedure Note Garfield Resendez MD / Provider, MD Dane - 08/04/2017 US VEIN DUPLEX LOWER EXTREMITY LEFT HISTORY: Pain in left lower leg. Left lower extremity pain and swelling. History of pulmonary embolism. COMPARISON: None available. FINDINGS: Left lower extremity venous Doppler interrogation reveals normal grayscale echogenicity, color flow and compressibility. No extraneous abnormalities are present. IMPRESSION: NORMAL LEFT LOWER EXTREMITY VENOUS DOPPLER STUDY. Electronically signed by: Garfield Resendez M.D. us Melanie Calix TRAINING AND DEVELOPMENT ASSISTANT IMG US PROCEDURES Final Res ult documented in this encounter Visit Diagnoses Diagnosis Pain of left calf documented in this encounter Care Teams Construction Assistant Relationship Specialty Start Date End Date Wesley Hardy MD [address] [place] [address] PCP - General Infectious Diseases 04/20/17 documented as of this encounter
--- OUTSIDE RECORDS SUMMARY | 2024-07-17 01:24 | XMS_ITS | Referral Summary ---
Author Organization [facility] [address] Address [address] [place] [address] Phone Care Team Providers Care Mergers And Acquisitions Consultant Name Role Phone Wesley Hardy MD Primary Care Provider [phone] Allergies Active Allergy Reactions Criticality Noted Date Comments Naproxen-Pseudoephedrine Unknown Chlorpheniramine Penicillin G Penicillins Prochlorperazine Angioedema High Reaction: FACIAL SWELLING, Pseudoephedrine Venom-Honey Bee Unknown Medications fluticasone (FLONASE) 50 mcg/actuation nasal sprayIndications :Seasonal allergic rhinitis, unspecified allergic rhinitis trigger,Sinus headache Administer 1 spray into each nostril daily. Active hydrocortisone 1 % creamIndications :Eczema, unspecified type Apply topically 2 (two) times a day. 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 She is acutely sensitized to pain in her legs because of her history of pulmonary embolism. They did a complete workup including a D-dimer and venous Doppler, and everything was pretty much negative. Exam today suggests she has some mild varicosities with superficial inflammation consistent with superficial thrombophlebitis. She also has a slight increase in the size of the left calf compared to the right. 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 She should try to keep her legs elevated as much as possible. Wear support hose. Despite a stated allergy to Aleve and Advil, she says she takes ibuprofen all the time for various aches and pains and does not have any reaction, so she can take 2 or 3 [id number] ibuprofen 3 times a day for one week. Follow up within two weeks or so if not improved. Referral to a vascular surgeon may be appropriate at some point. Elevated blood pressure reading 04/20/2017 Sinus headache 03/01/2017 Overview (04/20/2017): Headache later in day, resolves by morning. History of pulmonary embolism 02/08/2015 Overview (04/20/2017): See hospital records. Polycystic ovarian syndrome 12/15/2013 Overview (11/03/2016): POLYCYSTIC OVARIES Amenorrhea 12/15/2013 Overview (11/04/2016): ABSENCE OF MENSTRUATION Irritable bowel syndrome with diarrhea 8 Overview (04/20/2017): Symptoms developed after cholecystectomy, worsened by certain foods, e.g. Lettuce, fast food. No blood in stool. No change in pattern over 10 years. Tobacco abuse 04/01/2004 Persistent mood disorder 01/29/2002 Overview (04/20/2017): Anxiety Non morbid obesity due to excess calories 1999 Seasonal rhinitis 04/01/1997 Immunizations Name Administration Dates Next Due Influenza, Unspecified 04/12/2017 Tdap 05/07/2017 Social History Tobacco Use Types Packs/Day Years Used Date Smoking Tobacco: Every Day Cigarettes 1 13.7 Started: 2003; Last attempted to quit: 04/2017 Smokeless Tobacco: Never Alcohol Use Standard Drinks/Week Comments Yes 0 (1 standard drink = 0.6 oz pur e alcohol) Comments Unknown Sex and Gender Information Value Date Recorded Sex Assigned at Not on file 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 Gender Identity Not on file Sexual Orientation Not on file Occupation Industry Job Start Date Job End Date Not on file Not on file Not on file Not on file Last Filed Vital Signs Vital Sign Reading Time Taken Comments Blood Pressure 119/81 03/23/2020 11:25 PM CDT Pulse 92 03/23/2020 11:25 PM CDT Temperature 36.7 ??C (98.1 ??F) 03/23/2020 11:25 PM C DT Respiratory Rate 18 03/23/2020 11:25 PM CDT Oxygen Saturation 97% 03/23/2020 11:25 PM CDT Inhaled Oxygen Concentration - - Weight 120.2 kg (265 lb) 03/23/2020 9:36 PM CDT Height 175.3 cm (5' 9 ) 03/23/2020 9:36 PM CDT Body Mass Index 39.13 03/23/2020 9:36 PM CDT Plan of Treatment Not on file [place] [employer] [place] [employer] [place] Sub[place] Plan / Payer ( fective 2017-Present) Name:Maude PEREZ Relation to Subscriber:Self Name:Maude PEREZ Payer ID:[id number] (NAIC) Type: OTHER Address: [place] [id number] [facility] Care Teams Mergers And Acquisitions Consultant Relationship Specialty Start Date End Date Wesley Hardy MD [address] [place] [address] PCP - General Infectious Diseases 04/20/17
--- OUTSIDE RECORDS SUMMARY | 2024-07-17 01:24 | XMS_ITS | Encounter Summary ---
Author Organization [facility] Healthcare Address [address] [place] [id number] Care Team Providers Care Onsite Health Coach Name Role Phone Wesley Hardy MD Primary Care Provider [phone] Reason for Visit * Reason Comments Thrombophilia possibly in left leg Encounter Details Date Type Department Care Team (Late st Contact Info) Description 08/03/2017 5:34 PM MEDICAL LEGAL INVESTIGATOR - 08/03/2017 10:45 PM MEDICAL LEGAL INVESTIGATOR Emergency [facility] Emergency Department 1 [place] [address] Ermias Wilson MD 1 [facility] [place] [address] [place] [address] Pain of left calf (Primary Dx); Swelling of left lower extremity; Pain and swelling of left ankle Discharge Disposition: Discharge to home or self [...] on file Legal Sex Female 9:08 PM MEDICAL LEGAL INVESTIGATOR Gender Identity Not on file Sexual Orientation Not on file Occupation Industry Job Start Date Job End Date Not on file Not on file Not on file Not on file documented as of this encounter Last Filed Vital Signs Vital Sign Reading Time Taken Comments Blood Pressure 136/91 08/03/2017 8:25 PM MEDICAL LEGAL INVESTIGATOR Pulse 89 08/03/2017 8:25 PM MEDICAL LEGAL INVESTIGATOR Temperature 36.2 ??C (97.2 ??F) 08/03/2017 6:33 PM CS T Respiratory Rate 20 08/03/2017 8:25 PM MEDICAL LEGAL INVESTIGATOR Oxygen Saturation 100% 08/03/2017 8:25 PM MEDICAL LEGAL INVESTIGATOR Inhaled Oxygen Concentration - - Weight 115.7 kg (255 lb) 08/03/2017 6:33 PM MEDICAL LEGAL INVESTIGATOR Height 176.5 cm (5' 9.5 ) 08/03/2017 6:33 PM MEDICAL LEGAL INVESTIGATOR Body Mass Index 37.12 08/03/2017 6:33 PM MEDICAL LEGAL INVESTIGATOR documented in this encounter Discharge Instructions * Discharge Instructions* Melanie Calix NP - 08/03/2017 10:29 PM MEDICAL LEGAL INVESTIGATOR Use over the counter Tylenol and Motrin per manufacturers guidelines for relief of pain and fever. Call [phone] to schedule outpatient ultrasound on 08/04/16. CAL LEGAL INVESTIGATOR * Attachments The following attachments cannot be sent through Care Everywhere. * SPRAIN, ANKLE, WITH X-RAY (TURKISH) * RICE (Greenlandic) * Leg Swelling in a Single Leg (Greenlandic) documented in this encounter Medications at Time of Discharge [...] 2 (two) times a day. 60 tablet 04/20/2017 8 documented as of this encounter Discharge Disposition Disposition Code Departure Means Destination Discharge to home or self alf documented in this encounter ED Notes * Melanie Calix NP - 08/03/2017 9:12 PM CST HPI Chief Complaint Patient presents with ??? Thrombophilia possibly in left leg 31 y.o. year old female with PMHX Past Medical History: No date: Anxiety disorder Comment: Anxiety No date: HX OTHER MEDICAL Comment: ammenorhea; accompanied by family presents to ED with c/o pain, swelling to left lower leg. Denies fever, chills, nausea, vomiting, diarrhea, SOB, CP, numbness, tingling. Pt denies injury. Pt stated symptoms started a few days ago; however at work today pain became worse. Pt has not taken OTC medication for relief of pain. Pain is worse when dorsiflexion of left foot. Pt has swelling andbruising to left lateral ankle for 8 days. No injury to left ankle. Pt is able to ambulate without assistance or limp. Patient History Past Medical History: Diagnosis Date ??? Anxiety disorder Anxiety ??? HX OTHER MEDICAL ammenorhea Past Surgical History: Procedure Laterality Date ??? CHOLECYSTECTOMY 2008 Gallstones Family History Problem Relation Age of Onset ??? Diabetes type II Other Family history of Diabetes -Type II; ??? Hyperlipidemia Other Family history of Hyperlipidemia; ??? Hypertension Other Family history of Hypertension; ??? Pulmonary embolism Brother ??? Breast cancer Paternal Grandmother ??? Endometriosis Mother Social History Substance Use Topics ??? Smoking status: Former Smoker Packs/day: 1.00 Start date: 2003 Quit date: 04/2017 ??? Smokeless tobacco: Never Used ??? Alcohol use Yes Review of Systems Review of Systems Constitutional: Negative. Negative for chills and fever. HENT: Negative. Negative for ear pain and sore throat. Eyes: Negative. Negative for pain and visual disturbance. Respiratory: Negative. Negative for cough and shortness of breath. Cardiovascular: Negative. Negative for chest pain and palpitations. Gastrointestinal: Negative. Negative for abdominal pain and vomiting. Genitourinary: Negative. Negative for dysuria and hematuria. Musculoskeletal: Negative for arthralgias and back pain. Left calf and ankle pain Skin: Negative. Negative for color change and rash. Neurological: Negative. Negative for seizures and syncope. Psychiatric/Behavioral: Negative. All other systems reviewed and are negative. Physical Exam ED Triage Vitals Temp Pulse Resp BP SpO2 08/03/17183208/03/17183208/03/17183208/03/17183208/03/171832 36.2 ??C (97.2 ??F) 95 20 (!) 139/102 98 % Temp src Heart Rate Source Patient Position BP Location FiO2 (%) 08/03/171832 -- 08/03/172024 -- -- Tympanic Sitting Physical Exam Constitutional: She is oriented to person, place, and time. She appears well- developed and well-nourished. No distress. HENT: Head: Normocephalic and atraumatic. Eyes: Conjunctivae and EOM are normal. Pupils are equal, round, and reactive to light. Neck: Normal range of motion. Neck supple. Cardiovascular: Normal rate, regular rhythm, normal heart sounds and intact distal pulses. Exam reveals no gallop and no friction rub. No murmur heard. Pulmonary/Chest: Effort normal and breath sounds normal. No respiratory distress. She has no wheezes. She has no rales. She exhibits no tenderness. Abdominal: Soft. Bowel sounds are normal. She exhibits no distension and no mass. There is no tenderness. There is no rebound and no guarding. No hernia. Musculoskeletal: Normal range of motion. She exhibits tenderness. She exhibits no edema or deformity. Left ankle: She exhibits swelling and ecchymosis. Tenderness. Lateral malleolus tenderness found. No erythema.+ bruising. + swelling. No warmth. + Tenderness to palpation. No crepitus with movement. Normal range of motion. No pain with passive/active ROM. Normal strength. Distal pulses in tact. Negative talar tilt test. Negative anterior drawer test Swelling to left calf, tenderness posterior left calf. Pain is worse with dorsiflexion of left foot. No warmth, erythema, streaking noticed. Palpable knot to left posterior calf. Left pedal pulse 2+, distal sensation intact, and capillary refill less than 2 seconds. Neurological: She is alert and oriented to person, place, and time. No cranial nerve deficit. Skin: Skin is warm and dry. No rash noted. There is erythema. No pallor. Psychiatric: She has a normal mood and affect. Her behavior is normal. Nursing note and vitals reviewed. ED Course & MDM ED Course as of Aug 03 2249TueAug 03, [id number] Discussed case and current plan with Dr. Bernal. He interpreted the x-ray as negative. He recommends prophylactic treatment for DVT and outpatient US tomorrow. Informed pt of Dr. Bernal's recommendation. She verbalized understanding. All questions answered at this time. Pt is refusing prescription for pain medication. [GV] ED Course User Index [GV] Melanie Calix NP MDM Pain of left calf Swelling of left lower extremity Pain and swelling of left ankle Melanie Calix NP 08/03/17 [id number] Cosigned by Ermias Wilson MD at 08/04/2017 2:31 AM MEDICAL LEGAL INVESTIGATOR CAL LEGAL INVESTIGATOR CAL LEGAL INVESTIGATOR Associated attestation - Ermias Wilson MD - 08/04/2017 2:31 AM MEDICAL LEGAL INVESTIGATOR ED Attestation Based on the medical record the care appears appropriate. * Bertha Dubon RN - 08/03/2017 6:35 PM CST Pt has a history of blood clots. Pt states her left leg has been hurting for a few days and feelinglike her leg is tight. Pt states now it feels like she has a boulder in her leg. CAL LEGAL INVESTIGATOR documented in this encounter Plan of Treatment Not on file documented as of this encounter Procedures Procedure Name Priority Date/Time Associated Diagnosis Comments XR ANKLE LEFT 3 OR MORE VIEWS ED 08/03/2017 9:34 PM MEDICAL LEGAL INVESTIGATOR XR TIBIA FIBULA LEFT 2 VIEWS ED 08/03/2017 9:34 PM MEDICAL LEGAL INVESTIGATOR EGFR STAT 08/03/2017 7:39 PM MEDICAL LEGAL INVESTIGATOR DIFFERENTIAL AUTO STAT 08/03/2017 7:3 9 PM MEDICAL LEGAL INVESTIGATOR CBC WITH AUTO DIFFERENTIAL STAT 08/03/2017 7:39 PM MEDICAL LEGAL INVESTIGATOR APTT STAT 08/03/2017 7:39 PM MEDICAL LEGAL INVESTIGATOR PROTIME-INR STAT 08/03/2017 7:39 PM MEDICAL LEGAL INVESTIGATOR D-DIMER, QUANTITATIVE Add-On 08/03/2017 7:39 PM MEDICAL LEGAL INVESTIGATOR COMPREHENSIVE METABOLIC PANEL STAT 08/03/2017 7:39 PM MEDICAL LEGAL INVESTIGATOR DISCHARGE LABORATORY CUMULATIVE REPORT 08/03/2017 12:00 AM MEDICAL LEGAL INVESTIGATOR documented in this encounter Results * XR Tibia Fibula Left 2 Views (08/03/2017 9:34 PM MEDICAL LEGAL INVESTIGATOR) Anatomical Region Laterality Modality Lower Extremities, Lower Leg Left Com puted Radiography Impressions 08/03/2017 10:20 PM MEDICAL LEGAL INVESTIGATOR 1. ??NO ACUTE FRACTURE IDENTIFIED. 2. ??DEGENERATIVE CHANGES. Electronically signed by: Chucho Chávez M.D Narrative 08/03/2017 10:20 PM MEDICAL LEGAL INVESTIGATOR XR TIBIA FIBULA LEFT 2 VIEWS HISTORY: . ??Left leg pain. TECHNIQUE: AP lateral views. COMPARISON: None available. FINDINGS: No acute fracture subluxation identified. ??Evidence of early degenerative change at the knee. ??No definite joint effusion is evident. Procedure Note Chucho Chávez MD / Provider, MD Dane - 08/03/2017 XR TIBIA FIBULA LEFT 2 VIEWS HISTORY: . Left leg pain. TECHNIQUE: AP lateral views. COMPARISON: None available. FINDINGS: No acute fracture subluxation identified. Evidence of early degenerative change at the knee. No definite joint effusion is evident. IMPRESSION: 1. NO ACUTE FRACTURE IDENTIFIED. 2. DEGENERATIVE CHANGES. Electronically signed by: Chucho Chávez M.D Melanie Calix NP IMG XR PROCEDURES Final Res ult * XR Ankle Left 3 or More Views (08/03/2017 9:34 PM MEDICAL LEGAL INVESTIGATOR) Anatomical Region Laterality Modality Lower Extremities, Ankle Left Compute d Radiography Impressions 08/03/2017 10:18 PM MEDICAL LEGAL INVESTIGATOR 1. ??MINOR DEGENERATIVE CHANGES. 2. ??NO ACUTE FRACTURE IDENTIFIED. Electronically signed by: Chucho Chávez M.D Narrative 08/03/2017 10:18 PM MEDICAL LEGAL INVESTIGATOR XR ANKLE LEFT 3 OR MORE VIEWS HISTORY: . ??Left ankle pain. TECHNIQUE: 3 views are obtained. COMPARISON: None available. FINDINGS: No acute fracture subluxation identified. ??Minor degenerative changes. ??Artifact, somewhat obscuring detail. ??Small calcaneal spurs at the plantar and posterior aspects. ??Subtle contour deformity of the lateral malleolus on the lateral view may be due to prior fracture. ??No evidence of acute fracture on the other 2 views. Procedure Note Chucho Chávez MD / Provider, MD Dane - 08/03/2017 XR ANKLE LEFT 3 OR MORE VIEWS HISTORY: . Left ankle pain. TECHNIQUE: 3 views are obtained. COMPARISON: None available. FINDINGS: No acute fracture subluxation identified. Minor degenerative changes. Artifact, somewhat obscuring detail. Small calcaneal spurs at the plantar and posterior aspects. Subtle contour deformity of the lateral malleolus on the lateral view may be due to prior fracture. No evidence of acute fracture on the other 2 views. IMPRESSION: 1. MINOR DEGENERATIVE CHANGES. 2. NO ACUTE FRACTURE IDENTIFIED. Electronically signed by: Chucho Chávez M.D Melanie Calix NP IMG XR PROCEDURES Final Res ult * eGFR (08/03/2017 7:39 PM MEDICAL LEGAL INVESTIGATOR) eGFR >60 mL/min/1.7 3 m2 [facility] ([facility]AS[facility]) Comment: Interpretive Data Reference Interval Normal ?>/= 90 mL/min/1.73m2 Mildly decreased* ? 60 - 89 mL/min/1.73m2 Mildly to moderately decreased ?45 - 59 mL/min/1.73m2 Moderately to severely decreased ??30 - 44 mL/min/1.73m2 Severely decreased ?15 - 29 mL/min/1.73m2 Kidney Failure ?< 15 ??mL/min/1.73m2 *Relative to young adult level If -Togolese multiply value by 1.16. Estimated glomerular filtration rate is determined by the CKD-EPI equation recommended by the National Kidney Foundation (KDIGO 2012 Clinical Practice Guideline for the Evaluation and Management of Chronic Kidney Disease. Kidney Intnl Suppl Aug 2012;3:1). The CKD-EPI equation should not be used for patients with unstable renal function and has not been validated in children and those over 70. Current interpretive data was last reviewed 2016. Blood specimen (specimen) 08/03/2017 7:39 PM MEDICAL LEGAL INVESTIGATOR 08/03/2017 7:42 PM MEDICAL LEGAL INVESTIGATOR Narrative [facility] ([facility]) - 08/03/2017 8:23 PM MEDICAL LEGAL INVESTIGATOR us Ermias Wilson MD LAB BLOOD ORDERABLES Final Res ult Performing Organization Address [facility] Co de Phone Number [facility] ([facility]) [address] [place] [address] [email or web address] [address] * (ABNORMAL) D-dimer, quantitative (08/03/2017 7:39 PM MEDICAL LEGAL INVESTIGATOR) Pathologist [facility] D-dimer <150(L) 150 - 230 ng/mL D-DU [facility] ([place]) Comment: Interpretive Data This D-dimer test is approved by the FDA to exclude suspected PE and DVT in outpatients when the result is <230 ng/mL in conjunction with a pre-test probability score of low or moderate using the Wells criteria. Current Interpretive Data was last revised on 2015. Blood specimen (specimen) 08/03/2017 7:39 PM MEDICAL LEGAL INVESTIGATOR 08/03/2017 8:24 PM MEDICAL LEGAL INVESTIGATOR Narrative [facility] ([place]) - 08/03/2017 8:33 PM MEDICAL LEGAL INVESTIGATOR us Melanie Calix NP LAB BLOOD ORDERABLES Final Result Performing Organization Address [facility]/ZIP Co de Phone Number [facility] ([place]) [address] [place] [address] [email or web address] [address] * Differential, auto (08/03/2017 7:39 PM MEDICAL LEGAL INVESTIGATOR) Neutrophil pct 61.1 44.0 - 80.0 % [facility] ([place]) Imm gran pct 0.4 0.0 - 1.0 % [facility] ([place]) Lymphocyte pct 31.4 13.0 - 44.0 % [facility] ([facility]) Monocyte pct 5.6 2.0 - 11.0 % [facility] ([facility]) Eosinophil pct 1.0 0.0 - 6.0 % [facility] ([place]) Basophil pct 0.5 0.0 - 3.0 % [facility] ([facility]) Neutrophil abs 5.97 1.60 - 7.00 K/cumm [facility] ([facility]) Imm gran abs 0.04 0.00 - 0.20 K/cumm [facility] ([place]) Lymphocyte abs 3.07 0.50 - 4.30 K/cumm [facility] ([facility]) Monocyte abs 0.55 0.10 - 1.00 K/cumm [facility] ([facility]) Eosinophil abs 0.10 0.00 - 0.60 K/cumm [facility] ([facility]) Basophil abs 0.05 0.00 - 0.30 K/cumm [facility] ([facility]) Blood specimen (specimen) 08/03/2017 7:39 PM MEDICAL LEGAL INVESTIGATOR 08/03/2017 7:42 PM MEDICAL LEGAL INVESTIGATOR Narrative [facility] ([facility]) - 08/03/2017 7:45 PM MEDICAL LEGAL INVESTIGATOR us Ermias Wilson MD LAB BLOOD ORDERABLES Final Res ult [facility] ([facility]) 1 [facility] Department of Laboratories [place], [place] [id number] * Protime-INR (08/03/2017 7:39 PM MEDICAL LEGAL INVESTIGATOR) PT 10.9 9.5 - 13.0 sec [facility] ([place]) INR 0.97 0.90 - 1.20 [facility] ([facility]) Comment: Interpretive Data Recommended ranges for Protime INR: 2.0 - 3.0 Most indications for Warfarin therapy (e.g. Treatment of DVT, PE, bioprosthetic valve replacement, prophylaxis venous thrombosis, atrial fibrillation). 2.5 - 3.5 Mechanical mitral valve or dual mechanical mitral and Aortic valve replacement. Current Interpretive Data was last revised on 2015. Blood specimen (specimen) 08/03/2017 7:39 PM MEDICAL LEGAL INVESTIGATOR 08/03/2017 7:42 PM MEDICAL LEGAL INVESTIGATOR Narrative [facility] ([facility]) - 08/03/2017 8:13 PM MEDICAL LEGAL INVESTIGATOR Ermias Wilson MD LAB BLOOD ORDERABLES Final Res ult Performing Organization Address [facility] Co de Phone Number [facility] ([place]) 1 [facility] [place] [address] * aPTT (08/03/2017 7:39 PM MEDICAL LEGAL INVESTIGATOR) aPTT 28.1 25.0 - 37.0 sec [facility] ([facility]) Blood specimen (specimen) 08/03/2017 7:39 PM MEDICAL LEGAL INVESTIGATOR 08/03/2017 7:42 PM MEDICAL LEGAL INVESTIGATOR Narrative [facility] ([facility]) - 08/03/2017 8:13 PM MEDICAL LEGAL INVESTIGATOR Ermias Wilson MD LAB BLOOD ORDERABLES Final Res ult Performing Organization Address [facility] de Phone Number [facility] ([place]) 1 [facility] [email or web address] [address] * (ABNORMAL) CBC with auto differential (08/03/2017 7:39 PM MEDICAL LEGAL INVESTIGATOR) WBC 9.78 3.80 - 9.80 K/cumm [facility] ([facility]) RBC 4.72 3.90 - 5.00 M/cumm [facility] ([facility]) Hgb 14.5 12.1 - 15.1 g/dL [facility] ([facility]) Hct 42.9 36.1 - 44.3 % [facility] ([facility]) MCV 90.9 80.0 - 100.0 fL [facility] ([facility]) MCH 30.7 26.7 - 33.7 pg [facility] ([facility]) MCHC 33.8 32.7 - 36.0 g/dL [facility] ([facility]) RDW CV 12.0 11.5 - 14.6 % [facility] ([facility]) RDW SD 40.1 38.0 - 56.6 fL [facility] ([facility]) Plt 240 140 - 440 K/cumm [facility] ([facility]) MPV 10.7 8.0 - 12.0 fL [facility] ([facility]) NRBC 0.2(H) 0.0 - 0.0 % [facility] ([facility]) NRBC abs 0.02(H) 0.00 - 0.00 K/cumm [facility] ([facility]) Blood specimen (specimen) 08/03/2017 7:39 PM MEDICAL LEGAL INVESTIGATOR 08/03/2017 7:42 PM MEDICAL LEGAL INVESTIGATOR Narrative [facility] ([facility]) - 08/03/2017 7:45 PM MEDICAL LEGAL INVESTIGATOR us Ermias Wilson MD LAB BLOOD ORDERABLES Final Res ult [facility] ([facility] 1 [facility] Department [place] [address] * Comprehensive metabolic panel (08/03/2017 7:39 PM MEDICAL LEGAL INVESTIGATOR) Sodium 140 135 - 145 mmol/L [facility] ([facility] Potassium, pl 4.4 3.3 - 4.9 mmol/L [facility] ([facility] CO2 27 22 - 32 mmol/L [facility] ([facility]) BUN 10 8 - 25 mg/dL [facility] Glucose 97 70 - 199 mg/dL [facility] ([facility]) Comment: Interpretive Data Fasting glucose >/= 126 mg/dl is diagnostic for diabetes. ?? Fasting is defined as no caloric intake for at least 8 hours. Fasting glucose between 100 mg/dl to 125 mg/dl is diagnostic of prediabetes. In a patient with classic symptoms of hyperglycemia or hyperglycemic crisis, a random glucose >/= 200 mg/dl is diagnostic for diabetes. In the absence of unequivocal hyperglycemia, results should be confirmed by repeat testing. The classification and Diagnosis of Diabetes Diabetes Care 2017;40 (Suppl. 1):S11. Current interpretive data was last revised 2017. Creatinine 0.68 0.60 - 1.10 mg/dL [facility] ([facility]) Calcium 9.6 8.5 - 10.3 mg/dL [facility] ([facility]) Chloride 101 97 - 110 mmol/L [facility] ([facility]) Albumin 4.3 3.5 - 5.0 g/dL [facility] ([facility]) AST 15 10 - 45 Units/L [facility] ([facility]) ALT 18 7 - 45 Units/L [facility] ([facility]) Alk phos 88 40 - 130 Units/L [facility] ([facility]) Bilirubin, total 0.2 0.1 - 1.2 mg/dL [facility] ([place]) Protein, pl 7.7 6.5 - 8.5 g/dL [facility] ([facility]) Anion gap 12 2 - 15 mmol/L [facility] ([facility]) Blood specimen (specimen) 08/03/2017 7:39 PM MEDICAL LEGAL INVESTIGATOR 08/03/2017 7:42 PM MEDICAL LEGAL INVESTIGATOR Narrative [facility] ([facility]) - 08/03/2017 8:23 PM MEDICAL LEGAL INVESTIGATOR Ermias Wilson MD LAB BLOOD ORDERABLES Final Res ult [facility] ([facility]) 1 [facility] Department [place] [address] * DISCHARGE LABORATORY CUMULATIVE REPORT (08/03/2017 12:00 AM MEDICAL LEGAL INVESTIGATOR) Narrative 08/03/2017 12:00 AM MEDICAL LEGAL INVESTIGATOR Ordered by an unspecified provider. Historical Provider LAB BLOOD ORDERABLES Catina l Result documented in this encounter Visit Diagnoses Diagnosis Pain of left calf- Primary Swelling of left lower extremity Pain and swelling of left ankle documented in this encounter Administered Medications Inactive Administered Medications - up to 3 most recent administrations Medication Order MAR Action Action Date Dose Rate Site enoxaparin (LOVENOX) syringe 120 mg 120 mg (rounded from 115.7 mg = 1 mg/kg ? 115.7 kg), subcutaneous, Once, On Tue08/03/17 at 2215, For 1 dose, Indications: VTE ProphylaxisIndications:V TE Prophylaxis Given 08/03/2017 10:21 PM MEDICAL LEGAL INVESTIGATOR 120 mg Left Lower Abdomen documented in this encounter Active and Recently Administered Medications Times are shown in MEDICAL LEGAL INVESTIGATOR. Scheduled Medication Order 08/01/2017 08/02/2017 08/03/2017 enoxaparin (LOVENOX) syringe 120 mg (COMPLETED) 120 mg (rounded from 115.7 mg = 1 mg/kg ? 115.7 kg), subcutaneous, Once, On Tue08/03/17 at 2215, For 1 dose, Indications: VTE Prophylaxis 2221 (Given - Provid er: Jaz Rios RN) documented in this encounter Orders Medications Ordered That Tyler ht Not Have Been Administered Count Last Ordered Date First Ordered Date enoxaparin (LOVENOX) syringe 120 mg 1 08/03 documented in this encounter Care Teams Onsite Health Coach Relationship Specialty Start Date End Date Wesley Hardy MD [address] [place] [address] [place] [id number] PCP - General Infectious Diseases 04/20/17 documented as of this encounter
--- OUTSIDE RECORDS SUMMARY | 2024-07-17 01:24 | XMS_ITS | Encounter Summary ---
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 Office Visit [facility] [address] [place] [address] Wesley Hardy MD [address] [place] [address] Pain of left calf (Primary Dx) Social History Tobacco Use Types Packs/Day Years Used Date Smoking Tobacco: Former Cigarettes 1 13.7 2 - 04/2017 Smokeless Tobacco: Never Alcohol Use Standard Drinks/Week Comments Yes 0 (1 standard drink = 0.6 oz pur e alcohol) Comments Unknown Sex and Gender Information Value Date Recorded Sex Assigned at Not on file Legal Sex Female 9:08 PM 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 Gender Identity Not on file Sexual Orientation Not on file Occupation Industry Job Start Date Job End Date Not on file Not on file Not on file Not on file documented as of this encounter Last Filed Vital Signs Vital Sign Reading Time Taken Comments Blood Pressure 132/90 08/05/2017 10:05 AM 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 Pulse 88 08/05/2017 10:05 AM 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 Temperature 36 ??C (96.8 ??F) 08/05/2017 10:05 AM 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 Respiratory Rate 16 08/05/2017 10:05 AM 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 Oxygen Saturation 99% 08/05/2017 10:05 AM 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 Inhaled Oxygen Concentration - - Weight 117 kg (258 lb) 08/05/2017 10:05 AM 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 Get some support hose and wear daily. Follow up as needed if not improving. MOTIVE EXHA[employer] EMISSIONS TECHNICIAN documented in this encounter Progress Notes * Wesley Hardy MD - 08/05/2017 10:00 AM CST Problem List Items Addressed This Visit Nervous Pain of left calf - Primary She was in the [facility] Emergency room a few days ago for pain in her left calf. 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 She should try to keep her legs elevated as much as possible. Wear s upport hose. Despite a stated allergy to Aleve and Advil, she says she takes ibuprofen all the timefor various aches and pains and does not have any reaction, so she can take 2 or 3 [id number] 3 times a day for one week. Follow up within two weeks or so if not improved. Referral toa vascular surgeon may be appropriate at some point. HPI: The patient presents for follow-up from the emergency room where she was evaluated for pain and swelling in the left calf. 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 Workup for recurrent DVT was negative. She never had a clot identified in any leg, but just a pulmonary embolism. She is no longer on anticoagulation. She has not had shortness of breath or chest pain. Oxygen saturation in the office is quite good. We plan to seeher within two weeks if symptoms are not improving. Review of Systems Constitutional: Negative for fever. Respiratory: Negative for shortness of breath. Cardiovascular: Negative for chest pain. Musculoskeletal: Left calf pain for 5 days. Current Outpatient Prescriptions: ??? buPROPion (WELLBUTRIN) 100 mg tablet, Take 1 tablet (100 mg total) by mouth 2 (two) times a day., Disp: 60 tablet, Rfl: 11 ??? fluticasone (FLONASE) 50 mcg/actuation nasal spray, Administer 1 spray into each nostril daily., Disp: , Rfl: ??? hydrocortisone 1 % cream, Apply topically 2 (two) times a day., Disp: , Rfl: Allergies Allergen Reactions ??? Prochlorperazine Angioedema Reaction: FACIAL SWELLING, ??? Aleve Cold And Sinus [Naproxen-Pseudoephedrine] Unknown ??? Chlorpheniramine ??? Penicillin G ??? Penicillins ??? Pseudoephedrine ??? Venom-Honey Bee Unknown reports that she quit smoking about 4 months ago. She started smoking about 14 years ago. She smoked 1.00 pack per day. She has never used smokeless tobacco. She reports that she drinks alcohol. She reports that she does not use drugs. Family History Problem Relation Age of Onset ??? Diabetes type II Other Family history of Diabetes -Type II; ??? Hyperlipidemia Other Family history of Hyperlipidemia; ??? Hypertension Other Family history of Hypertension; ??? Pulmonary embolism Brother ??? Breast cancer Paternal Grandmother ??? Endometriosis Mother Vitals: 08/05/17 1005 BP: 132/90 Pulse: 88 Resp: 16 Temp: 36 ??C (96.8 ??F) SpO2: 99% Weight: 117 kg (258 lb) Height: 176.5 cm (5' 9.5 ) Physical Exam Constitutional: No distress. Pulmonary/Chest: No respiratory distress. Musculoskeletal: Mild superficial thrombophlebitis in left lateral calf. Skin: No rash noted. Labs reviewed: No additional labs ordered. She did have labs checked in the emergency room which I reviewed. MOTIVE EXHAUST EMISSIONS TECHNICIAN documented in this encounter Miscellaneous Notes * Assessment & Plan Note - Wesley Hardy MD - 08/05/2017 10:33 AM 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 Associated Problem(s): Pain of left calf She was in the [facility] Emergency room a few days ago for pain in her left calf. 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 She should try to keep her legs elevated as much as possible. Wear s upport hose. Despite a stated allergy to Aleve and Advil, she says she takes ibuprofen all the timefor various aches and pains and does not have any reaction, so she can take 2 or 3 [id number] 3 times a day for one week. Follow up within two weeks or so if not improved. Referral toa vascular surgeon may be appropriate at some point. MOTIVE EXHAUST EMISSIONS TECHNICIAN documented in this encounter Plan of Treatment Not on file documented as of this encounter Visit Diagnoses Diagnosis Pain of left calf- Primary documented in this encounter Care Teams [employer] Professional Relationship Specialty Start Date End Date Wesley Hardy MD [address] [place] [address] PCP - General Infectious Diseases 04/20/17 documented as of this encounter
--- OUTSIDE RECORDS SUMMARY | 2024-07-17 01:24 | XMS_ITS | Data Portability ---
Author Organization [facility] Address [address] [facility] [address] [facility] [address] [place] [address] Care Team Providers Care Mail Processor Name Role Phone AZUL SPANGLER Family [facility] AZUL SPANGLER [employer] Assessment No assessment recorded. Plan of Treatment Reminders Order Date Submit Date Provider Last Modified By Organization Details Last Modified Time Details Appointments None recorded. Lab lipid panel, serum 2023 024 [facility], [address] [place] [address], [address], 4 03:36:54 CMP, serum or plasma 2023 024 [facility], [address] [place] [address], [address], 4 03:36:55 CBC 2023 024 [facility], [address] [place] [address], [facility], [place], [address], 4 03:36:57 cytology report, thin prep, smear or scraping, cervical or vaginal 2023 024 [facility], [address] [facility], [facility], [place], [address], 4 08:38:44 HbA1c (hemoglobin A1c), blood 2023 024 [facility], [address] [facility], [facility], [place], [address], 4 03:36:56 TSH, ultra-sensi tive, serum 2023 024 [facility], [address] [place] [address], [place], [address], 4 03:36:56 hepatic function panel, serum 2023 024 [facility], [address] [place] [address], [place], [address], 4 09:40:00 PT/PTT, plasma 2023 024 [email or web address], [address] [place] [address], [place], [address], 4 10:09:08 Hepatitis C IgG Ab, qual, serum 2023 024 [facility], [address] [place] [address], [place], [address], 4 09:39:57 HBsAg (hepatitis B surface Ag), EIA, serum 2023 024 [facility], [address] [place] [address], [place], [address], 4 09:40:03 Hepatitis B virus core Ab, qual immunoassay , serum or plasma 2023 024 [facility], [address] [place] [address], [place], [address], 4 09:39:59 hepatitis B surface Ab, qualitative , serum 2023 024 [facility], [address] [place] [address], [place], [address], 4 09:40:02 hepatitis A virus Ab, qualitative , immunoassay , serum 2023 024 [facility], [address] [place] [address], [place], [address], 4 09:39:58 iron + total iron-bindin g capacity (TIBC), serum 2023 024 [facility], [address] [facility], [place] [address], [place], [address], 4 09:40:01 urinalysis complete, reflex culture 2023 024 [facility], [address] [facility], [facility], [place], [address], 4 07:36:54 albumin/cre atinine, mass ratio, urine 2023 024 [facility], [address] [facility], [facility], [place], [address], 4 07:36:52 urinalysis, complete 2023 024 [facility], [address] [facility], [facility], [place], [address], 4 08:38:59 urinalysis, dipstick 2023 024 [email or web address] In-Office Order, Internal Use Only DO Not Attach Compendium DO Not Attach Compendium, Do Not Delete/merge, [id number] 4 15:25:48 CMP, serum or plasma 2023 024 [facility], [address] [facility], [facility], [place], [address], 4 10:37:48 HbA1c (hemoglobin A1c), blood 2023 024 [facility], [address] [facility], [address], [place], [address], 4 10:37:50 lipid panel, serum 2023 024 [facility], [facility], [facility], [place], [address], 4 10:37:47 Referral gynecologis t referral - abnormal uterine bleeding when usually has had amenorrhea due to PCOS; interested in hysterectom y 2023 [facility], [address] [place], [address], 4 14:00:55 urologist referral - brown urine; history of kidney stones; FHx of kidney cancer 2023 EMILY Genao MD, [address] [facility] [address], [place], [address], 4 17:56:44 Procedures None recorded. Surgeries None recorded. Imaging MAMMO, screening, digital, bilateral 2023 [facility], [address], [facility] [address], [place], [address], 4 04:07:50 US, abdomen, complete - elevated liver enzymes 2023 [facility], [address] [facility] [address], [place], [address], 4 10:25:48 Medication Orders fluconazole 150 mg tablet 2023 [facility][id number], [address], [place], [place], [id number], 4 08:39:20 bupropion HCl XL 150 mg 24 hr tablet, extended release 2023 [facility] #[id number], [address], [place], [place], [id number], 4 10:01:39 Ozempic 0.25 mg or 0.5 mg (2 mg/3 mL) subcutaneou s pen injector [email or web address] [place], [place] [address]79196, [address], [place], [place], [id number], 4 10:00:43 metformin ER 500 mg tablet,exte nded release 24 hr 2023 [email or web address] [facility], [address], [place], [place], [id number], 10:00:43 atorvastati n 10 mg tablet 2023 [facility], [address], [place], [place], [id number], 10:51:50 escitalopra m 10 mg tablet 2023 [email or web address] 6 [facility], [address], [place], [place], [id number], 10:00:43 escitalopra m 5 mg tablet 2023 [facility], [address], [place], [place], [id number], 11:32:56 Ozempic 0.25 mg or 0.5 mg (2 mg/3 mL) subcutaneou s pen injector 2023 [facility], [address], [place], [place], [id number], 15:21:11 Ozempic 0.25 mg or 0.5 mg (2 mg/3 mL) subcutaneou s pen injector 2023 [facility], [address], [place], [place], [id number], 16:49:26 triamcinolo ne acetonide 0.5 % topical ointment 2023 024 [facility]58923, [address], [place], [place], [id number], 16:39:50 Patient TargetsNo targets recorded. 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 normal uterine bleeding abnormal uterine bleeding when usually has had amenorrhea due to PCOS; interested in hysterectomy Referring Physician: Azul Spangler [facility], Encounter Date: 02/07/2024 Urologist Referral for Abnor mal urine brown urine; history of kidney stones; FHx of kidney cancer Referring Physician: Azul Spangler [facility], Encounter Date: 02/22/2024 Results Created Date Observation Date Name Description Value Unit Range Abnormal Flag Note LastModifiedBy Organization Detail LastModifiedTime 02/07/20 24 02/08/2024 LIPID PANEL cholesterol, total 214 mg/dL 100-19 9 above high normal Not Available [facility] ([facility]) [address] [place], [address], 02/08/2024 03:36:54 02/07/2002/08/2024 LIPID PANEL triglyceride s 241 mg/dL 0-149 above high normal Not Available [facility] ([facility]) [address] [facility], [place], [address], 02/08/2024 03:36:54 02/07/2002/08/2024 LIPID PANEL HDL cholesterol 36 mg/dL >39 below low normal Not Available [facility] ([facility]) [address] [place], [address], 02/08/2024 03:36:54 02/07/20 24 02/08/2024 LIPID PANEL VLDL cholesterol ofelia 43 mg/dL 5-40 above high normal Not Available [facility] ([facility]) [address] [place], [address], 02/08/2024 03:36:54 02/07/20 24 02/08/2024 LIPID PANEL LDL chol calc ([facility]) 135 mg/dL 0-99 above high normal Not Available [facility] ([facility]) [address] [place], [address], 02/08/2024 03:36:54 02/07/20 24 02/08/2024 COMP. METAB OLIC PANEL (14) glucose 122 mg/dL 70-99 above high normal Not Available [facility] ([facility]) [address] [place], [address], 02/08/2024 03:36:55 02/07/20 24 02/08/2024 COMP. METAB OLIC PANEL (14) BUN 11 mg/dL 6-24 Not Available [facility] ([facility]) [address] [place], [address], 02/08/2024 03:36:55 02/07/20 24 02/08/2024 COMP. METAB OLIC PANEL (14) creatinine 0.71 mg/dL 0.57-1 .00 Not Available [facility] ([facility]) [address] [place], [address], 02/08/2024 03:36:55 02/07/20 24 02/08/2024 COMP. METAB OLIC PANEL (14) eGFR 110 mL/mi n/1.7 3 >59 Not Available [facility] ([facility]) [address] [place], [address], 02/08/2024 03:36:55 02/07/20 24 02/08/2024 COMP. METAB OLIC PANEL (14) BUN/creatini ne ratio 15 9-23 Not Available [facility] ([facility]) [address] [facility] [place], [address], 02/08/2024 03:36:55 02/07/20 24 02/08/2024 COMP. METAB OLIC PANEL (14) sodium 139 mmol/ L 134-14 4 Not Available [facility] ([facility]) [address] [facility] [place], [address], 02/08/2024 03:36:55 02/07/20 24 02/08/2024 COMP. METAB OLIC PANEL (14) potassium 4.7 mmol/ L 3.5-5. 2 Not Available [facility] ([facility]) [address] [facility] [place], [address], 02/08/2024 03:36:55 02/07/20 24 02/08/2024 COMP. METAB OLIC PANEL (14) chloride 103 mmol/ L 96-106 Not Available [facility] ([facility]) [address] [facility] [place], [address], 02/08/2024 03:36:55 02/07/20 24 02/08/2024 COMP. METAB OLIC PANEL (14) carbon dioxide, total 21 mmol/ L 20-29 Not Available [facility] ([facility]) [address] [place], [address], 02/08/2024 03:36:55 02/07/20 24 02/08/2024 COMP. METAB OLIC PANEL (14) calcium 9.5 mg/dL 8.7-10 .2 Not Available [facility] ([facility]) [address] [place], [address], 02/08/2024 03:36:55 02/07/20 24 02/08/2024 COMP. METAB OLIC PANEL (14) protein, total 7.3 g/dL 6.0-8. 5 Not Available [facility] ([facility]) [address] [place], [address], 02/08/2024 03:36:55 02/07/20 24 02/08/2024 COMP. METAB OLIC PANEL (14) albumin 4.2 g/dL 3.9-4. 9 Not Available [facility] ([facility]) [address] [facility] [place], [address], 02/08/2024 03:36:55 02/07/20 24 02/08/2024 COMP. METAB OLIC PANEL (14) globulin, total 3.1 g/dL 1.5-4. 5 Not Available [facility] ([facility]) [address] [facility] [place], [address], 02/08/2024 03:36:55 02/07/20 24 02/08/2024 COMP. METAB OLIC PANEL (14) bilirubin, total 0.3 mg/dL 0.0-1. 2 Not Available [facility] ([facility]) [address] [facility], [place], [address], 02/08/2024 03:36:55 02/07/20 24 02/08/2024 COMP. METAB OLIC PANEL (14) alkaline phosphatase 115 IU/L 44-121 Not Available [facility]) [address] [facility] [place], [address], 02/08/2024 03:36:55 02/07/20 24 02/08/2024 COMP. METAB OLIC PANEL (14) AST (SGOT) 30 IU/L 0-40 Not Available [facility] ([facility]) [address] [facility] [place], [address], 02/08/2024 03:36:55 02/07/20 24 02/08/2024 COMP. METAB OLIC PANEL (14) ALT (SGPT) 44 IU/L 0-32 above high normal Not Available [facility] ([facility]) [address] [place], [address], 02/08/2024 03:36:55 02/07/20 24 02/08/2024 TSH RFX ON ABNOR MAL TO FREE T4 TSH 3.440 uIU/m L 0.450- 4.500 Not Available [facility] ([facility]) [address] [place], [address], 02/08/2024 03:36:56 02/07/20 24 02/08/2024 HEMOG LOBIN A1C hemoglobin A1C 6.6 % 4.8-5. 6 above high normal Predi abete s: 5.7 - 6.4 Diabe josie: >6.4 Glyce ilya contr ol for adult s with diabe josie: <7.0 Not Available [facility] ([facility]) [address] [facility], [place], [address], 02/08/2024 03:36:56 02/07/2002/07/2024 CBC, PLATE LET, NO DIFFE RENTI AL WBC 8.7 x10e3 /uL 3.4-10 .8 Not Available [facility] ([facility]) [address] [place], [address], 02/08/2024 03:36:57 02/07/20 24 02/07/2024 CBC, PLATE LET, NO DIFFE RENTI AL RBC 4.71 x10e6 /uL 3.77-5 .28 Not Available [facility] ([facility]) [address] [place], [address], 02/08/2024 03:36:57 02/07/20 24 02/07/2024 CBC, PLATE LET, NO DIFFE RENTI AL hemoglobin 14.6 g/dL 11.1-1 5.9 Not Available [facility] ([facility]) [address] [place], [address], 02/08/2024 03:36:57 02/07/20 24 02/07/2024 CBC, PLATE LET, NO DIFFE RENTI AL hematocrit 44.3 % 34.0-4 6.6 Not Available [facility] ([facility]) [address] [facility], [place], [address], 02/08/2024 03:36:57 02/07/20 24 02/07/2024 CBC, PLATE LET, NO DIFFE RENTI AL MCV 94 fL 79-97 Not Available [facility] ([facility]) [address] [facility], [place], [address], 02/08/2024 03:36:57 02/07/20 24 02/07/2024 CBC, PLATE LET, NO DIFFE RENTI AL MCH 31.0 pg 26.6-3 3.0 Not Available [facility] ([facility]) [address] [facility], [place], [address], 02/08/2024 03:36:57 02/07/20 24 02/07/2024 CBC, PLATE LET, NO DIFFE RENTI AL MCHC 33.0 g/dL 31.5-3 5.7 Not Available [facility] ([facility]) [address] [facility], [place], [address], 02/08/2024 03:36:57 02/07/20 24 02/07/2024 CBC, PLATE LET, NO DIFFE RENTI AL RDW 12.9 % 11.7-1 5.4 Not Available [facility] ([facility]) [address] [place], [address], 02/08/2024 03:36:57 02/07/20 24 02/07/2024 CBC, PLATE LET, NO DIFFE RENTI AL platelets 240 x10e3 /uL 150-45 0 Not Available [facility] ([facility]) [address] [place], [address], 02/08/2024 03:36:57 02/07/20 24 02/08/2024 IGP, APTIM A HPV, RFX 16/18 ,45 HPV aptima NEGATI VE negati ve This nucle ic acid ampli ficat ion test detec ts fourt een high- risk HPV types (16,1 8,31, 33,35 ,39,4 5,51, 52,56 ,58,5 9,66, 68) witho ut diffe renti ation . Not Available [facility] ([facility]) [address] [facility], [place], [address], 02/10/2024 08:38:44 02/07/20 24 02/10/2024 IGP, APTIM A HPV, RFX 16/18 ,45 diagnosis: DAE Felder NEGAT EMERITA FOR INTRA EPITH ELIAL LESIO N OR MALMANUEL RAUL . THIS SPECI MEN WAS RESCR EENED PART OF OUR QUALI TY CONTR OL PROGR AM. Not Available [facility] ([facility]) [address] [facility], [place], [address], 02/10/2024 08:38:44 02/07/20 24 02/10/2024 IGP, APTIM A HPV, RFX 16/18 ,45 specimen adequacy: DAE Felder Satis facto ry for evalu ation . No endoc ervic al compo nent is ident ified . Not Available [facility] ([facility]) [address] [facility], [place], [address], 02/10/2024 08:38:44 02/07/20 24 02/10/2024 IGP, APTIM A HPV, RFX 16/18 ,45 clinician provided ICD10: DAE Felder E66.9 Z13.1 Z00.0 1 Z12.4 E78.5 Not Available [facility] ([facility]) [address] [place], [address], 02/10/2024 08:38:44 02/07/20 24 02/10/2024 IGP, APTIM A HPV, RFX 16/18 ,45 performed by: DAE Crawford orn, Cytot kd felder (ASCP ) Not Available [facility] ([facility]) [address] [place], [address], 02/10/2024 08:38:44 02/07/20 24 02/10/2024 IGP, APTIM A HPV, RFX 16/18 ,45 QC reviewed by: DAE velasco Cytot kd felder (ASCP ) Not Available [facility] ([facility]) [address] [facility], [place], [address], 02/10/2024 08:38:44 02/07/20 24 02/10/2024 IGP, APTIM A HPV, RFX 16/18 ,45 . . Not Available [facility] ([facility]) [address] [facility], [place], [address], 02/10/2024 08:38:44 02/07/20 24 02/10/2024 IGP, APTIM A HPV, RFX 16/18 ,45 note: DAE Felder The Pap smear is a scree kilo test desmanuel lewis to aid in the detec tion of greta ligna nt and malig nant condi tions of the uteri ne cervi x. It is not a diagn ostic proce dure and shoul d not be used as the sole means of detec ting cervi ofelia cance r. Both false -posi tive and false -nega tive repor ts do occur . Not Available [facility] ([facility]) [address] [facility], [place], [address], 02/10/2024 08:38:44 02/07/20 24 02/10/2024 IGP, APTIM A HPV, RFX 16/18 ,45 test methodology: DAE Felder This liqui d based ThinP rep(R ) pap test was scree debbie with the use of an image guide justina osullivan Not Available [facility] ([facility]) [address] [facility], [place], [address], 02/10/2024 08:38:44 02/07/20 24 02/10/2024 IGP, APTIM A HPV, RFX 16/18 ,45 HPV genotype reflex COMMEN T Crite micaela not met, HPV Genot ype not perfo rmed. Not Available [facility] ([facility]) [address] [facility], [place], [address], 02/10/2024 08:38:44 02/22/20 24 02/23/2024 ALBUM IN/CR EATIN INE RATIO ,URIN E creatinine, urine 289.8 mg/dL notest ab. Not Available [facility] ([facility]) [address] [facility], [place], [address], 02/24/2024 07:36:52 02/22/20 24 02/23/2024 ALBUM IN/CR EATIN INE RATIO ,URIN E albumin, urine 39.0 ug/mL notest ab. Not Available [facility] ([facility]) [address] [facility], [place], [address], 02/24/2024 07:36:52 02/22/20 24 02/23/2024 ALBUM IN/CR EATIN INE RATIO ,URIN E alb/creat ratio 13 mg/g_ creat 0-29 Ines l: 0 - 29 Moder ately incre ased: 30 - 300 Sever rose incre ased: >300 Not Available [facility] ([facility]) [address] [facility], [place], [address], 02/24/2024 07:36:52 02/22/2002/23/2024 MICRO SCOPI C EXAMI NATIO N WBC 0-5 /hpf 0-5 Not Available [facility] ([facility]) [address] [place], [address], 02/24/2024 07:36:53 02/22/20 24 02/23/2024 MICRO SCOPI C EXAMI NATIO N RBC 11-30 /hpf 0-2 abnormal Not Available [facility] ([facility]) [address] [place], [address], 02/24/2024 07:36:53 02/22/20 24 02/23/2024 MICRO SCOPI C EXAMI NATIO N epithelial cells (non renal) 0-10 /hpf 0-10 Not Available [facility] ([facility]) [address] [facility], [place], [address], 02/24/2024 07:36:53 02/22/20 24 02/23/2024 MICRO SCOPI C EXAMI NATIO N casts None seen /lpf nonese en Not Available [facility] ([facility]) [address] [facility], [place], [address], 02/24/2024 07:36:53 02/22/2002/23/2024 MICRO SCOPI C EXAMI NATIO N crystals Presen t n/a abnormal Not Available [facility] ([facility]) [address] [facility], [place], [address], 02/24/2024 07:36:53 02/22/20 24 02/23/2024 MICRO SCOPI C EXAMI NATIO N crystal type Calciu m Oxalat e Not Available [facility] ([facility]) [address] [place], [address], 02/24/2024 07:36:53 02/22/20 24 02/23/2024 MICRO SCOPI C EXAMI NATIO N bacteria Many nonese en/few abnormal Not Available [facility] ([facility]) [address] [place], [address], 02/24/2024 07:36:53 02/22/2002/23/2024 UA/M W/RFL X CULTU REHEAVEN NE specific gravity 1.029 1.005- 1.030 Not Available [facility] ([facility]) [address] [place], [address], 02/24/2024 07:36:54 02/22/20 24 02/23/2024 UA/M W/RFL X CULTU RE, ROUTI NE pH 5.5 5.0-7. 5 Not Available [facility] ([facility]) [address] [place], [address], 02/24/2024 07:36:54 02/22/20 24 02/23/2024 UA/M W/RFL X CULTU RE, ROUTI NE urine-color YELLOW yellow Not Available [facility] ([facility]) [address] [place], [address], 02/24/2024 07:36:54 02/22/20 24 02/23/2024 UA/M W/RFL X CULTU RE, ROUTI NE appearance CLOUDY clear abnormal Not Available [facility] ([facility]) [address] [facility], [place], [address], 02/24/2024 07:36:54 02/22/20 24 02/23/2024 UA/M W/RFL X CULTU RE, ROUTI NE WBC esterase NEGATI VE negati ve Not Available [facility] ([facility]) [address] [place], [address], 02/24/2024 07:36:54 02/22/20 24 02/23/2024 UA/M W/RFL X CULTU RE, ROUTI NE protein 1+ negati ve/tra ce abnormal Not Available [facility] ([facility]) [address] [place], [address], 02/24/2024 07:36:54 02/22/20 24 02/23/2024 UA/M W/RFL X CULTU RE, ROUTI NE glucose NEGATI VE negati ve Not Available [facility] ([facility]) [address] [place], [address], 02/24/2024 07:36:54 02/22/20 24 02/23/2024 UA/M W/RFL X CULTU RE, ROUTI NE ketones NEGATI VE negati ve Not Available [facility] ([facility]) [address] [facility], [place], [address], 02/24/2024 07:36:54 02/22/20 24 02/23/2024 UA/M W/RFL X CULTU RE, ROUTI NE occult blood 3+ negati ve abnormal Not Available [facility] ([facility]) [address] [facility], [place], [address], 02/24/2024 07:36:54 02/22/20 24 02/23/2024 UA/M W/RFL X CULTU RE, ROUTI NE bilirubin NEGATI VE negati ve Not Available [facility] ([facility]) [address] [facility], [place], [address], 02/24/2024 07:36:54 02/22/20 24 02/23/2024 UA/M W/RFL X CULTU RE, ROUTI NE urobilinogen ,semi-qn 0.2 mg/dL 0.2-1. 0 Not Available [facility] ([facility]) [address] [facility], [place], [address], 02/24/2024 07:36:54 02/22/20 24 02/23/2024 UA/M W/RFL X CULTU RE, ROUTI NE nitrite, urine NEGATI VE negati ve Not Available [facility] ([facility]) [address] [place], [address], 02/24/2024 07:36:54 02/22/20 24 02/23/2024 UA/M W/RFL X CULTU RE, ROUTI NE microscopic examination SEE BELOW: Micro scopi c was indic ated and was perfo rmed. Not Available [facility] ([facility]) [address] [place], [address], 02/24/2024 07:36:54 02/22/20 24 02/23/2024 UA/M W/RFL X CULTU RE, ROUTI NE urinalysis reflex COMMEN T This speci men has refle xed to a Urine Cultu re. Not Available [facility] ([facility]) [address] [facility], [place], [address], 02/24/2024 07:36:54 02/22/20 24 02/24/2024 URINE CULTU RE, ROUTI NE urine culture, routine Final report Not Available [facility] ([facility]) [address] [facility], [place], [address], 02/24/2024 07:36:54 02/22/20 24 02/24/2024 URINE CULTU RE, ROUTI NE result 1 Commen t Cultu re shows less than 10,00 0 colon y formi ng units of bacte micaela per travis liter of urine . This colon y count is not gener ally consi dered to be clini ten signi fican t. Not Available [facility] ([facility]) [address] [facility], [place], [address], 02/24/2024 07:36:54 02/27/20 24 02/28/2024 INTER PRETA TION: interpretati on: Commen t Not infec estephanie with HCV unles s early or acute infec tion is suspe cted (whic h may be delay ed in an immun ocomp romis ed indiv idual ), or other evide nce exist s to indic ate HCV infec tion. Not Available [facility] ([facility]) [address] [facility], [place], [address], 02/28/2024 09:39:56 02/27/20 24 02/28/2024 HCV ANTIB CURTIS RFX TO QUANT PCR HCV Ab NON REACTI VE nonrea ctive Not Available [facility] ([facility]) [address] [facility] [address], [place], [address], 02/28/2024 09:39:57 02/27/20 24 02/28/2024 HAV ANTIB CURTIS W/ RFX hep A Ab, total NEGATI VE negati ve Comme nt: The HAV total antib curtis assay detec ts both IgG and IgM but does not diffe renti ate betwe en them. A negat emerita resul t sugge sts susce ptibi lity to infec tion. A posit emerita resul t could be due to vacci natio n, previ ously resol kristyn infec tion or activ e infec tion. Testi ng for HAV IgM shoul d be perfo rmed if activ e HAV infec tion is suspe cted. [facility] offer s profi les that will autom atica lly refle x posit emerita HAV total antib curtis resul ts to IgM (e.g. , panel #[id number] HAV Antib curtis w/ Rfx). Not Available [facility] ([facility]) [address] [place], [address], 02/28/2024 09:39:58 02/27/20 24 02/28/2024 HEPAT ITIS B CORE AB W/REF SAIRA hep B core Ab, tot NEGATI VE negati ve Not Available [facility] ([facility]) [address] [place], [address], 02/28/2024 09:39:59 02/27/20 24 02/28/2024 HEPAT IC FUNCT ION PANEL (7) protein, total 7.5 g/dL 6.0-8. 5 Not Available [facility] ([facility]) [address] [place], [address], 02/28/2024 09:40:00 02/27/20 24 02/28/2024 HEPAT IC FUNCT ION PANEL (7) albumin 4.4 g/dL 3.9-4. 9 Not Available [facility] ([facility]) [address] [place], [address], 02/28/2024 09:40:00 02/27/20 24 02/28/2024 HEPAT IC FUNCT ION PANEL (7) bilirubin, total 0.3 mg/dL 0.0-1. 2 Not Available [facility] ([facility]) [address] [facility] [place], [address], 02/28/2024 09:40:00 02/27/20 24 02/28/2024 HEPAT IC FUNCT ION PANEL (7) bilirubin, direct 0.11 mg/dL 0.00-0 .40 Not Available [facility] ([facility]) [address] [facility] [place], [address], 02/28/2024 09:40:00 02/27/20 24 02/28/2024 HEPAT IC FUNCT ION PANEL (7) alkaline phosphatase 109 IU/L 44-121 Not Available [facility] ([facility]) [address] [facility] [place], [address], 02/28/2024 09:40:00 02/27/20 24 02/28/2024 HEPAT IC FUNCT ION PANEL (7) AST (SGOT) 42 IU/L 0-40 above high normal Not Available [facility] ([facility]) [address] [place], [address], 02/28/2024 09:40:00 02/27/20 24 02/28/2024 HEPAT IC FUNCT ION PANEL (7) ALT (SGPT) 54 IU/L 0-32 above high normal Not Available [facility] ([facility]) [address] [place], [address], 02/28/2024 09:40:00 02/27/20 24 02/28/2024 IRON AND TIBC iron bind.cap.(TI BC) 325 ug/dL 250-45 0 Not Available [facility] ([facility]) [address] [place], [address], 02/28/2024 09:40:01 02/27/20 24 02/28/2024 IRON AND TIBC UIBC 246 ug/dL 131-42 5 Not Available [facility] ([facility]) [address] [place], [address], 02/28/2024 09:40:01 02/27/20 24 02/28/2024 IRON AND TIBC iron 79 ug/dL 27-159 Not Available [facility] ([facility]) [address] [place], [address], 02/28/2024 09:40:01 02/27/20 24 02/28/2024 IRON AND TIBC iron saturation 24 % 15-55 Not Available [facility] ([facility]) [address] [facility], [place], [address], 02/28/2024 09:40:01 02/27/20 24 02/28/2024 HEP B SURFA CE AB, QUAL hep B surface Ab, qual NON REACTI VE Non React emerita: Incon siste nt with immun ity, less than 10 mIU/m L React emerita: Consi stent with immun ity, great er than 9.9 mIU/m L Not Available [facility] ([facility]) [address] [facility], [place], [address], 02/28/2024 09:40:02 02/27/20 24 02/28/2024 HBSAG SCREE N HBsAg screen NEGATI VE negati ve Not Available [facility] ([facility]) [address] [place], [address], 02/28/2024 09:40:03 04/04/20 24 04/05/2024 MICRO SCOPI C EXAMI NATIO N WBC 0-5 /hpf 0-5 Not Available [facility] ([facility]) [address] [place], [address], 04/05/2024 08:38:58 04/04/20 24 04/05/2024 MICRO SCOPI C EXAMI NATIO N RBC 11-30 /hpf 0-2 abnormal Not Available [facility] ([facility]) [address] [place], [address], 04/05/2024 08:38:58 04/04/20 24 04/05/2024 MICRO SCOPI C EXAMI NATIO N epithelial cells (non renal) 0-10 /hpf 0-10 Not Available [facility] ([facility]) [address] [place], [address], 04/05/2024 08:38:58 04/04/20 24 04/05/2024 MICRO SCOPI C EXAMI NATIO N casts None seen /lpf nonese en Not Available [facility] ([facility]) [address] [place], [address], 04/05/2024 08:38:58 04/04/20 24 04/05/2024 MICRO SCOPI C EXAMI NATIO N crystals Presen t n/a abnormal Not Available [facility] ([facility]) [address] [facility], [place], [address], 04/05/2024 08:38:58 04/04/20 24 04/05/2024 MICRO SCOPI C EXAMI NATIO N crystal type Calciu m Oxalat e Not Available [facility] ([facility]) [address] [place], [address], 04/05/2024 08:38:58 04/04/20 24 04/05/2024 MICRO SCOPI C EXAMI NATIO N mucus threads Presen t notest ab. Not Available [facility] ([facility]) [address] [place], [address], 04/05/2024 08:38:58 04/04/20 24 04/05/2024 MICRO SCOPI C EXAMI NATIO N bacteria Modera te nonese en/few abnormal Not Available [facility] ([facility]) [address] [place], [address], 04/05/2024 08:38:58 04/04/20 24 04/05/2024 URINA LYSIS , COMPL ETE specific gravity 1.021 1.005- 1.030 Not Available [facility] ([facility]) [address] [facility], [place], [address], 04/05/2024 08:38:59 04/04/20 24 04/05/2024 URINA LYSIS , COMPL ETE pH 5.5 5.0-7. 5 Not Available [facility] ([facility]) [address] [facility], [place], [address], 04/05/2024 08:38:59 04/04/20 24 04/05/2024 URINA LYSIS , COMPL ETE urine-color YELLOW yellow Not Available [facility] ([facility]) [address] [facility], [place], [address], 04/05/2024 08:38:59 04/04/20 24 04/05/2024 URINA LYSIS , COMPL ETE appearance CLOUDY clear abnormal Not Available [facility] ([facility]) [address] [place], [address], 04/05/2024 08:38:59 04/04/20 24 04/05/2024 URINA LYSIS , COMPL ETE WBC esterase NEGATI VE negati ve Not Available [facility] ([facility]) [address] [facility], [place], [address], 04/05/2024 08:38:59 04/04/20 24 04/05/2024 URINA LYSIS , COMPL ETE protein 2+ negati ve/tra ce abnormal Not Available [facility] ([facility]) [address] [place], [address], 04/05/2024 08:38:59 04/04/20 24 04/05/2024 URINA LYSIS , COMPL ETE glucose NEGATI VE negati ve Not Available [facility] ([facility]) [address] [place], [address], 04/05/2024 08:38:59 04/04/20 24 04/05/2024 URINA LYSIS , COMPL ETE ketones NEGATI VE negati ve Not Available [facility] ([facility]) [address] [facility], [place], [address], 04/05/2024 08:38:59 04/04/20 24 04/05/2024 URINA LYSIS , COMPL ETE occult blood 3+ negati ve abnormal Not Available [facility] ([facility]) [address] [facility], [place], [address], 04/05/2024 08:38:59 04/04/20 24 04/05/2024 URINA LYSIS , COMPL ETE bilirubin NEGATI VE negati ve Not Available [facility] ([facility]) [address] [facility], [place], [address], 04/05/2024 08:38:59 04/04/20 24 04/05/2024 URINA LYSIS , COMPL ETE urobilinogen ,semi-qn 0.2 mg/dL 0.2-1. 0 Not Available [facility] ([facility]) [address] [facility], [place], [address], 04/05/2024 08:38:59 04/04/20 24 04/05/2024 URINA LYSIS , COMPL ETE nitrite, urine NEGATI VE negati ve Not Available [facility] ([facility]) [address] [facility], [place], [address], 04/05/2024 08:38:59 04/04/20 24 04/05/2024 URINA LYSIS , COMPL ETE microscopic examination SEE BELOW: Micro scopi c was indic ated and was perfo rmed. Not Available [facility] ([facility]) [address] [place], [address], 04/05/2024 08:38:59 04/04/20 24 04/04/2024 urina lysis , dipst ick Leukocytes Negati ve Not Available In-Office Order Internal Use Only DO Not Attach Compendium DO Not Attach Compendium, Do Not Delete/merge, [id number] 04/04/2024 14:53:43 04/04/20 24 04/04/2024 urina lysis , dipst ick Nitrite negati ve Not Available In-Office Order Internal Use Only DO Not Attach Compendium DO Not Attach Compendium, Do Not Delete/merge, 04/04/2024 14:53:43 04/04/20 24 04/04/2024 urina lysis , dipst ick Urobilinogen .2 Not Available In-Of fice Order Internal Use Only DO Not Attach Compendium DO Not Attach Compendium, Do Not Delete/merge, 04/04/2024 14:53:43 04/04/20 24 04/04/2024 urina lysis , dipst ick Protein Trace Not Available In-Office Order Internal Use Only DO Not Attach Compendium DO Not Attach Compendium, Do Not Delete/merge, 04/04/2024 14:53:43 04/04/20 24 04/04/2024 urina lysis , dipst ick pH 6.0 Not Available In-Office Order Internal Use Only DO Not Attach Compendium DO Not Attach Compendium, Do Not Delete/merge, 04/04/2024 14:53:43 04/04/20 24 04/04/2024 urina lysis , dipst ick Blood Large Not Available In-Office Order Internal Use Only DO Not Attach Compendium DO Not Attach Compendium, Do Not Delete/merge, 04/04/2024 14:53:43 04/04/20 24 04/04/2024 urina lysis , dipst ick Specific [place] 1.030 Not Available In-Off ice Order Internal Use Only DO Not Attach Compendium DO Not Attach Compendium, Do Not Delete/merge, 04/04/2024 14:53:43 04/04/20 24 04/04/2024 urina lysis , dipst ick Ketone Negati ve Not Available In-Office Order Internal Use Only DO Not Attach Compendium DO Not Attach Compendium, Do Not Delete/merge, 04/04/2024 14:53:43 04/04/20 24 04/04/2024 urina lysis , dipst ick Bilirubin Negati ve Not Available In-Office Order Internal Use Only DO Not Attach Compendium DO Not Attach Compendium, Do Not Delete/merge, [id number] 04/04/2024 14:53:43 04/04/20 24 04/04/2024 urina lysis , dipst ick Glucose Negati ve Not Available In-Office Order Internal Use Only DO Not Attach Compendium DO Not Attach Compendium, Do Not Delete/merge, [id number] 04/04/2024 14:53:43 04/04/20 24 04/04/2024 urina lysis , dipst ick Appearance Turbid Not Available In-Offi ce Order Internal Use Only DO Not Attach Compendium DO Not Attach Compendium, Do Not Delete/merge, [id number] 04/04/2024 14:53:43 04/04/20 24 04/04/2024 urina lysis , dipst ick Color Brown Not Available In-Office Order Internal Use Only DO Not Attach Compendium DO Not Attach Compendium, Do Not Delete/merge, [id number] 04/04/2024 14:53:43 06/12/20 24 06/13/2024 LIPID PANEL cholesterol, total 167 mg/dL 100-19 9 Not Available [facility] ([facility]) [address] [place], [address], 06/13/2024 10:37:47 06/12/20 24 06/13/2024 LIPID PANEL triglyceride s 188 mg/dL 0-149 above high normal Not Available [facility] ([facility]) [address] [place], [address], 06/13/2024 10:37:47 06/12/20 24 06/13/2024 LIPID PANEL HDL cholesterol 37 mg/dL >39 below low normal Not Available [facility] ([facility]) [address] [place], [address], 06/13/2024 10:37:47 06/12/20 24 06/13/2024 LIPID PANEL VLDL cholesterol ofelia 33 mg/dL 5-40 Not Available [facility] ([facility]) [address] [place], [address], 06/13/2024 10:37:47 06/12/20 24 06/13/2024 LIPID PANEL LDL chol calc ([facility]) 97 mg/dL 0-99 Not Available [facility] ([facility]) [address] [place], [address], 06/13/2024 10:37:47 06/12/20 24 06/13/2024 COMP. METAB OLIC PANEL (14) glucose 87 mg/dL 70-99 Not Available [facility] ([facility]) [address] [place], [address], 06/13/2024 10:37:48 06/12/20 24 06/13/2024 COMP. METAB OLIC PANEL (14) BUN 12 mg/dL 6-24 Not Available [facility] ([facility]) [address] [place], [address], 06/13/2024 10:37:48 06/12/20 24 06/13/2024 COMP. METAB OLIC PANEL (14) creatinine 0.74 mg/dL 0.57-1 .00 Not Available [facility] ([facility]) [address] [place], [address], 06/13/2024 10:37:48 06/12/20 24 06/13/2024 COMP. METAB OLIC PANEL (14) eGFR 105 mL/mi n/1.7 3 >59 Not Available [facility] ([facility]) [address] [place], [address], 06/13/2024 10:37:48 06/12/20 24 06/13/2024 COMP. METAB OLIC PANEL (14) BUN/creatini ne ratio 16 9-23 Not Available [facility] ([facility]) [address] [place], [address], 06/13/2024 10:37:48 06/12/20 24 06/13/2024 COMP. METAB OLIC PANEL (14) sodium 142 mmol/ L 134-14 4 Not Available [facility] ([facility]) [address] [facility] [place], [address], 06/13/2024 10:37:48 06/12/20 24 06/13/2024 COMP. METAB OLIC PANEL (14) potassium 4.4 mmol/ L 3.5-5. 2 Not Available [facility] ([facility]) [address] [facility] [place], [address], 06/13/2024 10:37:48 06/12/20 24 06/13/2024 COMP. METAB OLIC PANEL (14) chloride 105 mmol/ L 96-106 Not Available [facility] ([facility]) [address] [facility] [place], [address], 06/13/2024 10:37:48 06/12/20 24 06/13/2024 COMP. METAB OLIC PANEL (14) carbon dioxide, total 24 mmol/ L 20-29 Not Available [facility] ([facility]) [address] [facility] [place], [address], 06/13/2024 10:37:48 06/12/20 24 06/13/2024 COMP. METAB OLIC PANEL (14) calcium 9.5 mg/dL 8.7-10 .2 Not Available [facility] ([facility]) [address] [facility] [place], [address], 06/13/2024 10:37:48 06/12/20 24 06/13/2024 COMP. METAB OLIC PANEL (14) protein, total 7.2 g/dL 6.0-8. 5 Not Available [facility] ([facility]) [address] [facility] [place], [address], 06/13/2024 10:37:48 06/12/20 24 06/13/2024 COMP. METAB OLIC PANEL (14) albumin 4.3 g/dL 3.9-4. 9 Not Available [facility] ([facility]) [address] [place], [address], 06/13/2024 10:37:48 06/12/20 24 06/13/2024 COMP. METAB OLIC PANEL (14) globulin, total 2.9 g/dL 1.5-4. 5 Not Available [facility] ([facility]) [address] [place], [address], 06/13/2024 10:37:48 06/12/20 24 06/13/2024 COMP. METAB OLIC PANEL (14) bilirubin, total 0.3 mg/dL 0.0-1. 2 Not Available [facility] ([facility]) [address] [place], [address], 06/13/2024 10:37:48 06/12/20 24 06/13/2024 COMP. METAB OLIC PANEL (14) alkaline phosphatase 108 IU/L 44-121 Not Available [facility] ([facility]) [address] [facility], [place], [address], 06/13/2024 10:37:48 06/12/20 24 06/13/2024 COMP. METAB OLIC PANEL (14) AST (SGOT) 15 IU/L 0-40 Not Available [facility] ([facility]) [address] [place], [address], 06/13/2024 10:37:48 06/12/20 24 06/13/2024 COMP. METAB OLIC PANEL (14) ALT (SGPT) 29 IU/L 0-32 Not Available [facility] ([facility]) [address] [place], [address], 06/13/2024 10:37:48 06/12/20 24 06/13/2024 HEMOG LOBIN A1C hemoglobin A1C 5.7 % 4.8-5. 6 above high normal Predi abete s: 5.7 - 6.4 Diabe josie: >6.4 Glyce ilya contr ol for adult s with diabe josie: <7.0 Not Available [facility] ([facility]) [address], [place], [address], 06/13/2024 10:37:49 05/22/20 24 05/22/2024 XR, abdom en No observ ation record ed. [email or web address], [place], [address], 05/24/2024 14:00:55 Result Notes None recorded. 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 Was on anticoag ulation for 6 months. AZUL SPANGLER MD Attn: Accounting ,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, [place], [address] , [place] [facility] 4 11:29:17 Elevated blood-pr essure reading without diagnosi s of hyperten petra 127508007 Completed 202302/22/2024 AZUL SPANGLER MD Attn: Accounting ,[address], [place], [address] , [place] [facility] 4 10:01:50 Type 2 diabetes mellitus 84635273 Active 2023 AZUL SPANGLER MD Attn: Accounting ,[address], [place], [address] , [place] [facility] 4 10:02:54 Abnormal urine 385736653 Active 2023 AZUL SPANGLER MD Attn: Accounting ,[address] [facility] [facility], [place], [address] , [place] [facility] 4 10:02:37 Depressi ve disorder 05239014 Active 2023 AZUL SPANGLER MD Attn: Accounting ,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, [place], [address] , [place] [facility] 4 10:02:40 Essentia l hyperten petra 93000158 Active 2023 AZUL SPANGLER MD Attn: Accounting ,[address], [place], [address] , [place] [facility] 4 10:02:52 Hepatiti s B non-immu ne 948276871 Active 2023 AZUL SPANGLER MD Attn: Accounting ,[address], [place], [address] , [facility] - [facility] 4 12:04:45 Disorder of nail 10160598 Active 2023 AZUL SPANGLER MD Attn: Accounting ,[address], [place], [address] , [place] [facility] 4 15:31:26 Hyperlip idemia 10951614 Active AZUL SPANGLER MD Attn: Accounting ,[address], [place], [address] , [place] [facility] 4 11:19:18 Pulmonar y embolism 88900865 Completed 201402/07/2024 AZUL SPANGLER MD Attn: Accounting ,[address], [place], [address] , [place] [facility] 4 11:18:04 Tobacco dependen ce syndrome 08882051 Completed 02/07/2024 AZUL SPANGLER MD Attn: Accounting ,[address] [facility] [facility], [place], [address] , [place] [facility] 4 08:38:22 Verruca vulgaris 06853892 Active Gunjan Robles PA-C Attn: Accounting ,[address], [place], [address] , [place] [facility] 17:59:30 Bacteria l vaginosi s 833554920 Completed 02/07/2024 AZUL SPANGLER MD Attn: Accounting ,[address], [place], [address] , [place] [facility] 11:19:33 Blood glucose outside referenc e range 499029322 Completed 02/07/2024 AZUL SPANGLER MD Attn: Accounting ,[address] 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 [facility], [place], [address] , [place] [facility] 11:19:28 Problem Notes None recorded. Procedures Surgical History Date Name Laterality Status Provider Name and Address Organization Details Recorded Time 02/07/20 24 Date of Last Pap Smear completed Gail Quinonez MA [place] - [facility] 02/22/2024 08:41:05 06/17/20 15 Cryosurgery Warts/Skin Tags completed Gunjan Robles PA-C Attn: Accounting,[address], [place], [address], [place] [facility] 06/17/2015 17:58:37 08/01/19 08 Cholecystectomy completed Gail Quinonez MA [place] [facility] 02/07/2024 08:25:03 08/01/19 07 Oral surgery procedure completed Gail Quinonez MA [place] [facility] 02/07/2024 08:25:29 Imaging Results Imaging Date Name Status LastModified by Organiz ation Details LastModified Time 05/22/2024 XR, abdomen completed [email or web address] [facility] [address] [facility] [address], [place], [address], 05/24/2024 14:00:55 Procedure Notes None recorded. Medical Equipment None Reported. Allergies Allergen ID Allergen Name Allergen Category Reaction Reaction Severity Criticality Documentation Date Start Date Code Code System Note Provider Name and Address Organization Details Recorded Time 304131 Wellbutri n medicatio n itching Not available Not available 02/22/2024 77017 [facility] [place], [place] - [facility] 4 08:39:04 12090 penicilli n G Not available edema Not available Not available 06/17/2015 7980 [facility] [place], [place] - [facility] 5 15:21:58 26993 Advil medicatio n edema Not available Not available 06/17/2015 33798 0 [facility] [place] [facility] 5 15:21:58 40983 Aleve medicatio n edema Not available Not available 06/17/2015 73644 1 [facility] [place] [facility] 5 15:21:58 89518 Non-stero idal anti-infl ammatory agent (product) medicatio n edema Not available Not available 06/17/2015 13505 005 SNOMED BUCK [place] - [facility] 5 15:21:58 Medications Name Sig Start Date Stop Date Status Note LastModified by Organization Details LastModified Time bupropion HCl SR 150 mg tablet,12 hr sustained -release Take 1 tablet twice a day by oral route. 02/06 completed Not Available Not Available Not Available atorvasta tin 20 mg tablet TAKE 1 TABLET BY MOUTH EVERY DAY FOR HIGH CHOLESTE ROL active Not Available Not Available No t Available atorvasta tin 10 mg tablet TAKE 1 TABLET BY MOUTH EVERY DAY FOR HIGH CHOLESTE ROL 06/13 completed increase d to 20 mg daily Not Available Not Available Not Available fluconazo le 150 mg tablet TAKE 1 TABLET BY MOUTH FOR 1 DOSE 02/21 completed Not Available Not Available Not Available metronida zole 0.75 % (37.5 mg/5 gram) vaginal gel Insert 1 applicat orful every day by vaginal route in the evening for 5 days. 02/06 completed Not Available Not Available Not Available warfarin 2.5 mg tablet Take 1 tablet every day by oral route. 02/06 completed Not Available Not Available Not Available triamcino lone acetonide 0.5 % topical ointment APPLY A THIN LAYER TO FOOT RASH BY TOPICAL ROUTE TWO TIMES A DAY UNTIL RASH DISSAPEA RS active Not Available Not Available No t Available sulfameth oxazole 800 mg-trimet hoprim 160 mg tablet TAKE 1 TABLET BY MOUTH EVERY 12 HOURS FOR 5 DAYS 02/06 completed Not Available Not Available Not Available oxycodone -acetamin ophen 5 mg-325 mg tablet TAKE 1 TABLET BY MOUTH EVERY 8 HOURS NEEDED FOR PAIN active Not Available Not Available No t Available warfarin 5 mg tablet Take 1 tablet every day by oral route. 02/06 completed Not Available Not Available Not Available ondansetr on 4 mg disintegr ating tablet DISSOLVE 1 TABLET ON THE TONGUE EVERY 8 HOURS NEEDED FOR NAUSEA OR VOMITING active Not Available Not Available No t Available metformin ER 500 mg tablet,ex tended release 24 hr TAKE 1 TABLET BY MOUTH EVERY DAY FOR DIABETES active Not Available Not Available No t Available metoclopr amide 10 mg tablet TAKE 1 TABLET BY MOUTH EVERY 6 HOURS NEEDED FOR NAUSEA OR VOMITING active Not Available Not Available No t Available escitalop kait 10 mg tablet TAKE 1 TABLET BY MOUTH EVERY DAY FOR DEPRESSI ON active Not Available Not Available No t Available bupropion HCl XL 150 mg 24 hr tablet, extended release TAKE 1 TABLET BY MOUTH EVERY DAY FOR DEPRESSI ON 02/21 completed itching of arms and face Not Available Not Available Not Available escitalop kait 5 mg tablet TAKE 1 TABLET BY MOUTH EVERY DAY FOR 7 DAYS FOR DEPRESSI ON 03/26 completed on 10 mg dose now Not Available Not Available Not Available Zyrtec active otc Not Available Not Availa ble Not Available Ozempic 0.25 mg or 0.5 mg (2 mg/3 mL) subcutane ous pen injector INJECT 0.25 MG SUBCUTAN EOUSLY EVERY WEEK FOR 30 DAYS. active Not Available Not Available No t Available Vitals Date Recorded Body weight Body mass index (BMI) Body height Oxygen saturation Oxygen saturation in Arterial blood by Pulse oximetry Heart rate Body temperature Systolic blood pressure Diastolic blood pressure Provider Name and Address Organization Details Last Updated DateTime 4 228808. 58 g 45.3 kg/m2 176.53 cm 98 % 98 % 98 /min 98.7 [degF] 135 mm[Hg] 92 mm[Hg] Gail Quinonez MA [facility] 4 08:11:36 Date Recorded Body height Body mass index (BMI) Body weight Oxygen saturation Oxygen saturation in Arterial blood by Pulse oximetry Heart rate Body temperature Systolic blood pressure Diastolic blood pressure Provider Name and Address Organization Details Last Updated DateTime 4 176.53 cm 44.3 kg/m2 983658. 53 g 100 % 100 % 84 /min 98.6 [degF] 127 mm[Hg] 90 mm[Hg] Gail Quinonez MA [facility] 4 08:37:37 Date Recorded Body height Body mass index (BMI) Body weight Heart rate Oxygen saturation Oxygen saturation in Arterial blood by Pulse oximetry Body temperature Respiratory rate Systolic blood pressure Diastolic blood pressure Provider Name and Address Organization Details Last Updated DateTime 4 176.53 cm 43.7 kg/m2 764376. 51 g 80 /min 100 % 100 % 98.5 [degF] 16 /min 131 mm[Hg] 87 mm[Hg] Gunjan Irving MA [facility] 4 15:08:09 Date Recorded Body height Body mass index (BMI) Body weight Oxygen saturation Oxygen saturation in Arterial blood by Pulse oximetry Heart rate Body temperature Respiratory rate Systolic blood pressure Diastolic blood pressure Provider Name and Address Organization Details Last Updated DateTime 4 176.53 cm 43.2 kg/m2 894235. 93 g 100 % 100 % 89 /min 98.7 [degF] 16 /min 137 mm[Hg] 92 mm[Hg] Gunjan Irving MA [facility] S[facility] 4 14:45:49 Date Recorded Body height Body mass index (BMI) Body weight Oxygen saturation Oxygen saturation in Arterial blood by Pulse oximetry Heart rate Body temperature Systolic blood pressure Diastolic blood pressure Provider Name and Address Organization Details Last Updated DateTime 4 176.53 cm 41.3 kg/m2 400166. 23 g 98 % 98 % 78 /min 98.4 [degF] 126 mm[Hg] 87 mm[Hg] Gunjan Irving MA [facility] S[facility] 4 16:06:59 Social History Question Answer Notes LastModified by Organizat ion Details LastModified Time Tobacco Smoking Status Former Smoker 02/07/24 quit 2021 Gail Quinonez MA null, [place] - [facility] 02/07/2024 08:21:46 Do You Have An Advance Directive? No [email or web address] Information not available 06/17/2015 What Is Your Level Of Alcohol Consumption? Occasional [email or web address] Information not available 06/17/2015 Are You Blind Or Do You Have Difficulty Seeing? Yes 02/07/24 Wears Glasses Information not available 02/07/2024 What Is Your Level Of Caffeine Consumption? Occasional [email or web address] Information not available 06/17/2015 How Much Tobacco Do You Chew? None [email or web address] Information not available 06/17/2015 In The 14 Days Before Symptom Onset, Have You Had Close Contact With A Laboratory-confi rmed COVID-19 While That Case Was Ill? No Information not available 02/07/2024 In The 14 Days Before Symptom Onset, Have You Had Close Contact With A Person Who Is Under Investigation For COVID-19 While That Person Was Ill? No Information not available 02/07/2024 Have You Been To An Area Known To Be High Risk For COVID-19? 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 Yes 02/07/24 Difficulty Hearing Information not available 02/07/2024 What Type Of Diet Are You Following? REGULAR [email or web address] Information not available 06/17/2015 Which Illicit Or Recreational Drugs Have You Used? 0 [email or web address] Information not available 06/17/2015 Do You Or Have You Ever Used E-cigarettes Or Vape? 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 Yes Information not available 02/07/2024 Hard Of Hearing Or Deaf In One Or Both Ears? Yes Information not available 02/07/2024 Legally Blind In One Or Both Eyes? No [email or web address] Information not available 06/17/2015 Live Alone Or With Others? With Others Information not available 02/07/2024 Do You Have A High School Diploma Or Higher Education? Yes Information not available 02/07/2024 Do You Sometimes Have To Miss Your Medical Appointments Due To Difficult Getting Transportation? No Information not available 02/07/2024 Do You Feel Unfairly Treated Due To Things Such As Race, Age, Gender, Disability Or Some Other Reason? No Information not available 02/07/2024 Do You Feel Physically And Emotionally Safe While Living At Home? Yes Information not available 02/07/2024 Do You Feel Physically And Emotionally Safe In Your Neighborhood Or Other Public Places? Yes Information not available 02/07/2024 What Was The Date Of Your Most Recent Tobacco Screening? 02/22/2024 Information not available 02/22/2024 How Many Children Do You Have? 0 [email or web address] Information not available 06/17/2015 What Is Your Relationship Status? Information not available 02/07/2024 Do You Use Your Seat Belt Or Car Seat Routinely? Yes Information not available 02/07/2024 Seat Belts Used Routinely Yes [email or web address] Information not available 06/17/2015 Are You Sexually Active? No 02/07/24 States Has Not Been Sexually Active Since 07/2023 Information not available 02/07/2024 Smoke Alarm In Home Yes [email or web address] Information not available 06/17/2015 Do You Have Smoke And Carbon Monoxide Detectors In Your Home? Yes Information not available 02/07/2024 At What Age Did You Start Smoking Tobacco? 18 [email or web address] Information not available 06/17/2015 Are You Passively Exposed To Smoke? No Information not available 06/17/2015 Do You Or Have You Ever Used Smokeless Tobacco? Never Used Smokeless Tobacco Information not available 02/07/2024 How Much Tobacco Do You Smoke? No Information not available 02/07/2024 Do You Feel Stressed (tense, Restless, Nervous, Or Anxious, Or Unable To Sleep At Night)? [id number] Information not available 02/07/2024 Do You Use Any Illicit Or Recreational Drugs? No Information not available 02/07/2024 Do You Use Sunscreen Routinely? No Information not available 02/07/2024 Has Tobacco Cessation Counseling Been Provided? Yes Information not available 02/07/2024 On What Date Was Tobacco Cessation Counseling Provided? 02/07/2024 Information not available 02/07/2024 How Many Years Have You Smoked Tobacco? 12 Information not available 02/07/2024 Do You Or Have You Ever Used Any Other Forms Of Tobacco Or Nicotine? Yes Information not available 02/07/2024 How Many Years Have You Used E-cigarettes Or Vape? 4 Information not available 02/07/2024 Sex: Female Functional Status Question Answer Note LastModified by Organization D etails LastModified Time Are you able to care for yourself? Yes [email or web address] Information n ot available 06/17/2015 What is your exercise level? None [email or web address] Information not available 06/17/2015 Mental Status None recorded. Family History Relationship Description Onset Age of this Age Resolved Age Notes LastModified by Organization Details LastModified Time Mother Hypertensive disorder [email or web address] Not available 2014 15:41:58 Father Hypertensive disorder [email or web address] Not available 2014 15:41:58 Brother Hypertensive disorder [email or web address] Not available 2014 15:41:58 Paternal Grandmother Diabetes mellitus [email or web address] Not available 2014 15:41:58 Paternal Grandmother Malignant tumor of breast eewig Not available 2014 15:41:58 Paternal Grandmother Malignant tumor of lung [email or web address] Not available 02/06 08:19:42 Paternal Grandmother Heart disease [email or web address] Not available 02/06 08:20:19 Maternal Grandfather Diabetes mellitus [email or web address] Not available 2014 15:41:58 Maternal Grandfather Alzheimer's disease [email or web address] Not available 2014 15:41:58 Maternal Aunt Cerebrovascu lar accident [email or web address] Not available 08:20:01 Maternal Grandmother Hypercholest erolemia [email or web address] Not available 02/21 08:41:35 Medical History Condition Response Coronary Artery Disease N High Blood Pressure N Atrial Fibrillation N Thyroid Problems N Kidney or Bladder Problems Y GI Problems Y Depression Y COPD N Blood Clots Y Have you had a mammogram in the last yea r? N Skin Problems N Eating Disorder N Anemia N Heart Attack (ID) N Diabetes N Anxiety Disorder N Muscle, Joint, or Bone Problems N Seizures/Epilepsy N Have you had a colonoscopy in the last 1 0 years? N Arthritis N Acid Reflux (GERD) Y Cancer N Stroke N Asthma N Allergies Y ADHD N Substance Abuse N High Cholesterol Y Hepatitis N Liver Disease N Schizophrenia N Headaches N Osteoporosis N Heart Failure N Gynecological History Statement/Question Response Date of Last Mammogram Date of LMP Date of Last Pap Smear 02/07/2024 Age at Menarche Current Control Method None LMP Unknown Obstetrics History GPAL:G 0 P 0 0 0 0 Immunizations Vaccine Type Date Status Note Provider Keo shabazz and Address Organization Details Recorded Time Tdap 7 completed AZUL SPANGLER MD Attn: [address] [place], [address], [facility] 02/07/2024 11:22:57 Pneumococcal conjugate PCV20, polysaccharide RRB444 conjugate, adjuvant, PF 4 completed Gunjan Irving MA [facility], [place] - [facility] 06/12/2024 16:46:43 Past Encounters Encounter ID Performer Location Encounter Start Date Encounter Closed Date Diagnosis/Indication Diagnosis SNOMED-CT Code Diagnosis ICD10 Code [id number] DANIEL Lopez (Adult Med) [address] [place] [address] 06/17/2015 15:01:21 06/17/2015 18:01:06 Adult health examination 358086880 Z00.00 Pulmonary embolism 77635 003 I26.99 Venereal d isease screening 912074880 Z11.3 Tobacco de pendence syndrome 40750809 F17.290 Verruca vulgaris 1498237 3 B07.9 [id number] AZUL SPANGLER MD [facility] (ENVIRONMENTAL ENGINEERING TECHNICIAN) [address] [place] [address] 02/07/2024 07:59:20 02/28/2024 21:17:31 Adult health examination 452392399 Z00.01 Obesity 784214533 E66.9 Z13.1 Polycystic ovary syndrome 152850987 E28.2 Screening for malignant neoplasm of cervix 944360171 Z12.4 Screening for malignant neoplasm of breast 480751772 Z12.31 Elevated blood-pressure reading without diagnosis of hypertension 827643023 R03.0 Hyperlipidemia 64694588 E78.5 Abnormal u terine bleeding 1717661128 9100 N93.9 Candidal intertrigo 2661 01779 B37.2 Depressive disorder 3548 9007 F32.A [id number] MD Shellie LOONEYhalto (ENVIRONMENTAL ENGINEERING TECHNICIAN) [address] [place] [address] 02/22/2024 08:25:27 02/29/2024 16:21:40 Type 2 diabetes mellitus 53719760 E11.9 Abnormal urine 786319764 R82.90 Depressive disorder 3548 9007 F32.A Alanine aminotransferase above reference range 523512530 R74.01 Essential hypertension 48657981 I10 [id number] MD Gracie LOONEY (ENVIRONMENTAL ENGINEERING TECHNICIAN) [address] [place] [address] 03/23/2024 14:49:57 04/06/2024 12:16:40 Type 2 diabetes mellitus 55104502 E11.9 Panic attack 196622636 F 41.0 Disorder of nail 8361779 8 L60.9 [id number] [facility]INEER[facility] TECHNICIAN[facility] [address] [place] [address] 04/04/2024 14:36:05 04/17/2024 09:20:24 History of hematuria 675602480 Z87.448 R82.998 Urinary cr ystal, calcium oxalate 651648744 R82.286 [id number] MD Shellie LOONEYhalto (ENVIRONMENTAL ENGINEERING TECHNICIAN) [address] [place] [address] 06/12/2024 15:44:31 06/14/2024 15:13:59 Type 2 diabetes mellitus 81758677 E11.9 Hyperlipidemia 32996977 E78.5 Alanine aminotransferase above reference range 736539236 R74.01 Administra tion of pneumococcal vaccine 50489313 Z23 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 [id number] [facility] 02/22/2024 1 [employer] [id number] [facility] [id number] [facility] 03/23/2024 1 [employer] [id number] [facility] [id number] [facility] 04/04/2024 1 [employer] [id number] [facility] [id number] [facility] 06/12/2024 1 [employer] [id number] [facility] [id number] [facility] Notes Date Note Type Note Provider Name and Address Organization Details Recorded Time 02/07/2024 text/html Annual wellness- Establishing care- History of PE in 2014 and was on AC for 6 months; did not see a threading machine feeder automatic. Brother had history of multiple lung clots in his lungs and had workup that was negative for inherited forms of thrombophilia. Per chart review, was provoked by OCP use. Concerns today- Has very irregular periods due to PCOS (amenorrhea + hirsutism). Has had vaginal bleeding off and on since a year ago, worse since October 2023. The whole month of November, had to wear a pad or pantiliner, which would get half full for the whole day. Had bleeding every day of December except for week. Now resolved. Was mostly passing a clot when using the bathroom or noticed brownish to pinkish blood on the toilet paper. Last used a pantiliner last week.- Had dysuria in October that came on for a week or two and then went away, came back, and has been gone for a week.- Has had new sharp low abdominal pain for past month. Was taking probiotic (Gut 360) for past year, and got better off of the probiotic. Pain is consistent regardless of BMs. Has history of abdominal pain without diagnosis of it prior. No change in stool consistency from baseline (loose after cholecystectomy), no hematochezia, no hemorrhoids.- Has history of kidney stones and has had left-sided flank pain, which is side that stones are usually on- FHx of kidney cancer in maternal grandmother. FHx of natural stone record producer in dad.- Gained 30 pounds in past 1.5 years. Cardiovascular risk- HTN: FHx in both parents and brother- DM2: FHx in paternal grandmother, maternal grandfather. Prediabetes with A1c 5.7% (2015).- HLD: Personal diagnosis; Tchol 222, LDL 139 (2015).- Personal history of ID, CVA? No- Family history of ID, CVA? Not in first degree relative Infection risk- Prior testing for HIV? None on file- Prior testing for HepC? 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 With - Vaccines due? COVID, flu Plans for - Amenorrhea due to PCOS Cancer screenings- Breast cancer: No known close FHx.- Cervical cancer: Had an abnormal Pap with cervical biopsy (12 years ago); biopsy was normal.- Colon cancer: No known FHx.- Lung cancer: Former smoker, quit in 2021 (age 36). AZUL SPANGLER MD Attn: [address] [place], [address], [place] 02/22/2024 08:43:07 02/22/2024 text/html Med side effect- Itching of arms and sometimes face while taking Wellbutrin Abnormal urine- Had brown urine one morning for the first urination of the day on 02/14. Has happened before but this episode was out of the blue. No pain, nothing on toilet paper with wiping. Second urination was darker than normal but then went back to normal color for the rest of the day. First episode in 2 months.- Drank alcohol the night before but not a lot.- When episodes occur, usually is the first urine of the day.- Has had about 12 episodes in the past 2 years- No known FHx of bladder cancer. Maternal grandmother had kidney cancer that required nephrectomy. Lab result follow up- Here to discuss results of recent labs: A1c, lipid panel, ALT AZUL SPANGLER MD Attn: [address] [place], [address], [facility] 02/22/2024 10:03:56 03/23/2024 text/html DM2- Here for 4 week follow up after starting Ozempic- Not having any side effects with nausea, vomiting, diarrhea; mild constipation manageable Panic attack- Had a panic attack vs anxiety attack at a BBQ event over the weekend- Nurse practitioner friend helped her calm down- Symptoms lasted less than 10 minutes- Has otherwise been doing well on Lexapro 10 mg daily Nail problem- Has had abnormally growing left 4th digit nail for past several years- Denies trauma to nail. Fell off one day and never grew back normally AZUL SPANGLER MD Attn: [address] [facility], [place], [address], [facility] 03/26/2024 11:33:08 04/04/2024 text/html Brown urine- Uri ne turned brownish red on Tuesday04/02/24- Tuesday04/03/24, started having left flank pain. Rated as 7/10. Passed large half-dollar sized clot in urine during the evening.- Today, pain is now on right flank. Rated as 4/10.- Has not used any pain medicine.- Does not drink soda. Only drinks plain water, about 4-5 40 oz bottles per day. AZUL SPANGLER MD Attn: [address] [facility], [place], [address], [facility] 04/04/2024 15:27:44 06/12/2024 text/html Diabetes follow upSymptoms- Vision problems: {{yes* no}} - noticed double lines on Tuesday night- Numbness/tingling: {{yes no*}}- Hypoglycemia: {{yes* no}} - has cold hands and feet and will notice blood sugar in the 60s-70s at that time; was happening more often when eating super low carb diet but has improved since eating more carbs- Chest pain: {{yes no*}}- Nausea, vomiting, diarrhea: {{yes no*}}- Ulcerations or sores: {{yes no*}}- Pain in legs when walking: {{yes no*}}Night sweats- Has worse night sweats since turning 38. 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
--- OUTSIDE RECORDS SUMMARY | 2024-07-17 01:24 | XMS_ITS | Encounter Summary ---
Author Organization [facility] Healthcare Address [address] [place] [address] Care Team Providers Care Optics Engineer Name Role Phone Wesley Hardy MD Primary Care Provider [phone] Encounter Details Date Type Department Care Team (Late st Contact Info) Description 05/17/2017 11:25 AM CDT [address] Polycystic ovaries Social History Tobacco Use Types Packs/Day Years Used Date Smoking Tobacco: Former Cigarettes 1 13.7 2 - 04/2017 Smokeless Tobacco: Never Alcohol Use Standard Drinks/Week Comments Yes 0 (1 standard drink = 0.6 oz pur e alcohol) Comments Unknown Sex and Gender Information Value Date Recorded Sex Assigned at Not on file 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 Sex 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 Gender Identity Not on file Sexual Orientation Not on file Occupation Industry Job Start Date Job End Date Not on file Not on file Not on file Not on file documented as of this encounter Plan of Treatment Not on file documented as of this encounter Procedures Procedure Name Priority Date/Time Associated Diagnosis Comments ESTRADIOL Routine 05/17/2017 4:15 PM CDT Polycystic ovaries FOLLICLE STIMULATING HORMONE Routine 05/17/2017 4:15 PM CDT Polycystic ovaries documented in this encounter Results * Follicle stimulating hormone (05/17/2017 4:15 PM CDT) FSH 4.2 mIUnits/mL BRANNON CORTEZ Comment: Interpretive Data Reference Interval Female ??<10 years ? 1 - 19 ??mIU/ml ??Mid-Follicular ?4 - 9 ?? mIU/ml ??Mid-Cycle ? 4 - 23 ??mIU/ml ??Mid-Luteal ?2 - 5 ?? mIU/ml ??Post Menopausal ??16 - 114 mIU/ml -- Male ?1 - 19 ??mIU/ml Current interpretive data was last revised on 2016 Blood specimen (specimen) 05/17/2017 4:15 PM CDT 05/17/2017 4:15 PM CDT Dyana Goodwin MD LAB BLOOD ORDERABLES Final Res ult Performing Organization Address [facility] de Phone Number [facility] [phone] [place] [address] * Estradiol (05/17/2017 4:15 PM CDT) Pathologist [facility] Estradiol 66 pg/mL BRANNON Comment: Interpretive Data Reference Interval Female ??<10 years ? <20 - 50 ?? pg/ml ??Mid-Follicular ? 25 - 125 ??pg/ml ??Mid-Cycle ?90 - 440 ??pg/ml ??Mid-Luteal ? 50 - 300 ??pg/ml ??Post Menopausal ?? <20 - 50 ?? pg/ml -- Male ?<20 - 50 ?? pg/ml Current interpretive data was last revised on 2016 Blood specimen (specimen) 05/17/2017 4:15 PM CDT 05/17/2017 4:15 PM CDT Dyana Goodwin MD LAB BLOOD ORDERABLES Final Res ult Performing Organization Address [facility] de Phone Number [facility] [phone] [facility] [place] [address] documented in this encounter Visit Diagnoses Diagnosis Polycystic ovaries documented in this encounter Care Teams Optics Engineer Relationship Specialty Start Date End Date Wesley Hardy MD [address] [place] [address] [place] [address] PCP - General Infectious Diseases 04/20/17 documented as of this encounter
--- OUTSIDE RECORDS SUMMARY | 2024-07-17 01:24 | XMS_ITS | Encounter Summary ---
Author Organization [facility] Address [address] [place] [address] Phone Care Team Providers Care Financial Coach Name Role Phone Wesley Hardy MD Primary Care Provider [phone] Encounter Details Date Type Department Care Team (Late st Contact Info) Description 05/11/2017 Orders Only [facility] [address] [address] Shena Tiwari MD [address] [place] [address] Social History Tobacco Use Types Packs/Day Years Used Date Smoking Tobacco: Former Smokeless Tobacco: Never Alcohol Use Standard Drinks/Week Comments Yes 0 (1 standard drink = 0.6 oz pur e alcohol) Comments Unknown Sex and Gender Information Value Date Recorded Sex Assigned at Not on file 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 Gender Identity Not on file Sexual Orientation Not on file Occupation Industry Job Start Date Job End Date Not on file Not on file Not on file Not on file documented as of this encounter Plan of Treatment Not on file documented as of this encounter Procedures Procedure Name Priority Date/Time Associated Diagnosis Comments HPV MRNA E6/E7 Routine 05/11/2017 4:30 PM CDT THINPREP MATERIALS PLANNER/PRODUCTION PLANNER PAP (IMAGE GUIDED) LIQUID-BASED PREP Routine 05/11/2017 4:30 PM CDT documented in this encounter Results * HPV mRNA E6/E7 (05/11/2017 4:30 PM CDT) Human papillomavirus RNA, High Risk E6/E7 Not Detected Not Detected [facility] - Comment: This test was performed using the APTIMA HPV Assay ([employer] ? This assay detects E6/E7 viral messenger RNA (mRNA) from 14 high-risk HPV types (16,18,31,33,35,39,45,51,52,56,58,59,66,68). 05/11/2017 4:30 PM CDT 05/12/2017 5:14 AM CDT Narrative Resulting Agency Comment Performing Organization Information: ?Site ID: ?Name: [facility] ?Address: [facility] [address] [place] [address] ?Director: Rell Encinas MD Shena Tiwari MD LAB MICROBIOLOGY - NERAL ORDERABLES Final Result [facility] - [place] * ThinPrep Gynecologic Pap Test (Image-guided), Liquid-based Preparation (05/11/2017 4:30 PM CDT) Report status CANCELED [facility] - Comment:Result canceled by t he ancillary Clinical information [facility] - Comment:Information not prov ided LMP NONE GIVEN [facility] - Previous Pap NEG 2014 [facility] [place] Prev. Bx NEG 2014 [facility] - Source [facility] - Comment:Cervix, Endocervix Pap, specimen adequacy [facility] - Comment: Satisfactory for evaluation. Endocervical/transformation zone component absent. Age and/or menstrual status not provided Pap, general categorization [facility]CELED [facility] - Comment:Result canceled by t he ancillary HPV interp [facility] - Comment:Negative for intraep ithelial lesion or malignancy. Infection: CANCELED [facility] - Comment:Result canceled by t he ancillary COMMENTS [facility] - Comment: This Pap test has been evaluated with computer assisted technology. Banking Attorney [facility] - Comment: MEF, CT(ASCP) CT screening location: [place] [address] [address] [place] [address] Review pleater hand [facility] [place] Comment: PCM, CT(ASCP) CT screening location: [place] [address] [place] [address] Pathologist [facility] [place] Comment:Result canceled by t he ancillary 05/11/2017 4:30 PM CDT 05/12/2017 5:14 AM CDT Narrative Resulting Agency Comment Performing Organization Information: ?Site ID: ?Name: [facility] ?Address: [facility] [address] [place] [address] ?Director: Rell Encinas MD Shena Tiwari MD LAB PATHOLOGY ORDERAB LES Final Result [facility] - [address] documented in this encounter Visit Diagnoses Not on filedocumented in this encounter Care Teams Financial Coach Relationship Specialty Start Date End Date Wesley Hardy MD [address] [place] [address] [place] [address] PCP - General Infectious Diseases 04/20/17 documented as of this encounter
--- OUTSIDE RECORDS SUMMARY | 2024-07-17 01:24 | XMS_ITS | Encounter Summary ---
Author Organization [facility] Address [address] [place] [address] Care Team Providers Care Broke Man Name Role Phone Wesley Hardy MD Primary Care Provider [phone] Reason for Visit * Reason Comments Finger Laceration Encounter Details Date Type Department Care Team (Late st Contact Info) Description 03/23/2020 9:25 PM CDT - 03/23/2020 11:28 PM CDT Emergency [facility] Emergency Department [address] [place] [address] Carmen Logan MD [address] [place] [id number] Laceration of skin of left thumb (Primary Dx) Discharge Disposition: Discharge to home or self [...] on file Legal Sex Female 9:08 PM 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 Gender Identity Not on file Sexual Orientation [...] Mass Index 39.13 03/23/2020 9:36 PM CDT documented in this encounter Discharge Diagnoses Diagnosis Laceration without foreign body of left thumb without damage to nail, initial encounter - LACERATION WITHOUT FOREIGN BODY OF LEFT THUMB WITHOUT DAMAGE TO NAIL, INITIAL ENCOUNTER Anxiety disorder, unspecified - ANXIETY DISORDER, UNSPECIFIED Nicotine dependence, unspecified, uncomplicated - NICOTINE DEPENDENCE, UNSPECIFIED, UNCOMPLICATED Acquired absence of other specified parts of digestive tract - ACQUIRED ABSENCE OF OTHER SPECIFIED PARTS OF DIGESTIVE TRACT Allergy status to analgesic agent status - ALLERGY STATUS TO ANALGESIC AGENT STATUS Allergy status to penicillin - ALLERGY STATUS TO PENICILLIN Contact with other sharp object(s), not elsewhere classified, initial encounter - CONTACT WITH OTHER SHARP OBJECT(S), NOT ELSEWHERE CLASSIFIED, INITIAL ENCOUNTER Activity, food preparation and clean up - ACTIVITY, FOOD PREPARATION AND CLEAN UP Kitchen of unspecified non-institutional (private) residence as the place of occurrence of the external cause - KITCHEN OF UNSPECIFIED NON-INSTITUTIONAL (PRIVATE) RESIDENCE THE PLACE OF OCCURRENCE OF THE EXTER Unspecified external cause status - UNSPECIFIED EXTERNAL CAUSE STATUS documented in this encounter Discharge Instructions * Discharge Instructions* Carmen Logan MD - 03/23/2020 11:07 PM CDT Keep wound dry for next 2 days, then clean wound daily with warm, soapy water, dry wound, and applyantibiotic ointment. Sutures out in 7-10 days per your primary physician. Follow up sooner if signsof infection. * Attachments The following attachments cannot be sent through Care Everywhere. * Laceration, Extremity: Stitches, Staple, or Tape (Polish) documented in this encounter Medications at Time of Discharge fluticasone (FLONASE) 50 mcg/actuation nasal sprayIndications: Seasonal allergic rhinitis, unspecified allergic rhinitis trigger,Sinus headache Administer 1 spray into each nostril daily. hydrocortisone 1 % creamIndications: Eczema, unspecified type Apply topically 2 (two) times a day. documented as of this encounter Discharge Disposition Disposition Code Departure Means Destination Discharge to home or self care documented in this encounter ED Notes * Carmen Logan MD - 03/23/2020 10:25 PM CDTAssociated Order(s): Laceration Repair Chief Complaint Patient presents with ??? Finger Laceration HPI (10:21 PM): Anny Rodriguez is a 34 y.o. female smoker with a history of anxiety presenting for evaluation of a thumb laceration. Patient reports that she was attempting to open a beef stew can and accidentally sliced her left thumb on the edge of the can at approximately 2230 tonight. She notes active bleeding that she states she has not been able to control. No modifying factors noted. Denies numbness, tingling, fever, chills, or sweats. Patient states her last TDaP was ~4 years ago. PCP: Dr. Emiliano MD Nursing Note reviewed Past Medical History: Diagnosis Date ??? Anxiety disorder Anxiety ??? HX OTHER MEDICAL ammenorhea Past Surgical History: Procedure Laterality Date ??? CHOLECYSTECTOMY 2008 [facility] HOME MEDICATIONS : fluticasone (FLONASE) 50 mcg/actuation nasal spray hydrocortisone 1 % cream Allergies Allergen Reactions ??? Prochlorperazine Angioedema Reaction: FACIAL SWELLING, ??? Aleve Cold And Sinus [Naproxen-Pseudoephedrine] Unknown ??? Chlorpheniramine ??? Penicillin G ??? Penicillins ??? Pseudoephedrine ??? Venom-Honey Bee Unknown Review of Systems Constitutional: Negative for chills and fever. HENT: Negative for congestion and sore throat. Eyes: Negative for pain and visual disturbance. Respiratory: Negative for cough, shortness of breath and wheezing. Cardiovascular: Negative for chest pain, palpitations and leg swelling. Gastrointestinal: Negative for abdominal pain, diarrhea, nausea and vomiting. Genitourinary: Negative for difficulty urinating, dysuria and frequency. Skin: Positive for wound. Neurological: Negative for weakness and headaches. All other systems reviewed and are negative. Physical Exam Vitals signs and nursing note reviewed. Constitutional: General: She is not in acute distress. Appearance: She is well-developed. HENT: Head: Normocephalic. Nose: Nose normal. Eyes: Conjunctiva/sclera: Conjunctivae normal. Pupils: Pupils are equal, round, and reactive to light. Neck: Musculoskeletal: Normal range of motion and neck supple. Cardiovascular: Rate and Rhythm: Normal rate and regular rhythm. Heart sounds: Normal heart sounds. Pulmonary: Effort: Pulmonary effort is normal. Breath sounds: Normal breath sounds. Abdominal: General: Bowel sounds are normal. Palpations: Abdomen is soft. Musculoskeletal: Normal range of motion. Left hand: She exhibits laceration (2.5 cm laceration to the pad of the left thumb. Full ROM intact.). She exhibits normal range of motion. Skin: General: Skin is warm and dry. Neurological: Mental Status: She is alert and oriented to person, place, and time. Vitals: 03/23/20 2136 03/23/20 2325 BP: 124/91 119/81 Patient Position: Sitting Pulse: 102 92 Resp: 18 18 Temp: 37 ??C (98.6 ??F) 36.7 ??C (98.1 ??F) TempSrc: Oral Oral SpO2: 98% 97% Weight: 120.2 kg (265 lb) Height: 175.3 cm (5' 9 ) Labs Reviewed - No data to display No orders to display Laceration Repair Date/Time: 03/23/2020 10:32 PM Performed by: Carmen Logan MD Authorized by: Carmen Logan MD RN Notified of Procedure: yes Informed consent: Risks, benefits, alternatives discussed and patient/guest services representative/guardian agrees and accepts Patient's stated name/ matches armband: Yes Allergies confirmed: yes Supplies, devices and special equipment are available: yes Immediately prior to the procedure a time out was called: a verbal verification by the procedure participants confirmed correct patient identity, correct site/side marked and visible (if applicable);agreement on procedure to be done; and correct patient positioning Anesthesia method: Local infiltration Local anesthetic: Lidocaine 1% WITH epi Location: Finger Finger location: L thumb Length (cm): 2.5 Repair type: Simple Preparation: Patient was prepped and draped in usual sterile fashion Area cleansed with: Betadine and Shur-Clens Amount of cleaning: Standard Repair method: Sutures Suture size: 5-0 Wound skin closure material used: Ethilon. Suture technique: Simple interrupted Number of sutures: 4 Approximation: Close Vermilion border: well-aligned Dressing: Antibiotic ointment Patient tolerance of procedure: Tolerated well, no immediate complications All guidewires, needles, sponges or other items are accounted for: yes MDM IMPRESSION: 1. Laceration of skin of left thumb ATTESTATIONS: This note is prepared by Jessica Griffith acting as a scribe for Dr. Carmen Logan MD. I electronically signed this note at 12:11 AM on 03/24/2020. I, Dr. Carmen Logan MD, have personally performed the services described in the documentation , reviewed the documentation, as recorded by the scribe in my presence, and it accurately and completely records my words and actions. 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 Stated been bleeding for an hour. Stated had tetanus shot 4 years ago. Currently, pressing dressing intact. No obvious active bleeding noted. Denies any fainting. Stated feeling a little lightheadedness. documented in this encounter Plan of Treatment Not on file documented as of this encounter Procedures Procedure Name Priority Date/Time Associated Diagnosis Comments MO SIMPLE REPAIR SCALP/NECK/AX/GENIT /TRUNK 2.5CM/< Routine 03/23/2020 10:25 PM CDT documented in this encounter Results * MO SIMPLE REPAIR SCALP/NECK/AX/GENIT/TRUNK 2.5CM/< (03/23/2020 10:25 PM CDT) Narrative Carmen Logan MD - 03/23/2020 10:25 PM CDT Carmen Logan MD ? 03/24/2020 12:11 AM Laceration Repair Date/Time: 03/23/2020 10:32 PM Performed by: Carmen Logan MD Authorized by: Carmen Logan MD RN Notified of Procedure: yes ?? Informed consent: ??Risks, benefits, alternatives discussed and patient/guest services representative/guardian agrees and accepts Patient's stated name/ matches armband: ??Yes Allergies confirmed: yes ?? Supplies, devices and special equipment are available: yes ?? Immediately prior to the procedure a time out was called: a verbal verification by the procedure participants confirmed correct patient identity, correct site/side marked and visible (if applicable); agreement on procedure to be done; and correct patient positioning ?? Anesthesia method: ??Local infiltration Local anesthetic: ??Lidocaine 1% WITH epi Location: ??Finger Finger location: ??L thumb Length (cm): ??2.5 Repair type: ??Simple Preparation: ??Patient was prepped and draped in usual sterile fashion Area cleansed with: ??Betadine and Shur-Clens Amount of cleaning: ??Standard Repair method: ??Sutures Suture size: ??5-0 Wound skin closure material used: Ethilon. Suture technique: ??Simple interrupted Number of sutures: ??4 Approximation: ??Close Vermilion border: well-aligned ?? Dressing: ??Antibiotic ointment Patient tolerance of procedure: ??Tolerated well, no immediate complications All guidewires, needles, sponges or other items are accounted for: yes ?? us Carmen Logan MD IN CLINIC/BEDSIDE ORDERABL ES Final Result documented in this encounter Visit Diagnoses Diagnosis Laceration of skin of left thumb- Primary documented in this encounter Care Teams Broke Man Relationship Specialty Start Date End Date Wesley Hardy MD [address] [place] [address] PCP - General Infectious Diseases 04/20/17 documented as of this encounter
--- OUTSIDE RECORDS SUMMARY | 2024-07-17 01:24 | XMS_ITS | Continuity of Care Document ---
Author Organization [facility] (MARKETING SUPPORT SPECIALIST) Address [address] [place] [address] Care Team Providers Care Sheriff Deputy Name Role Phone SANDRA PRAKASH Family Medicine SANDRA PRAKASH Human Anatomy Teacher Assessment No assessment recorded. Plan of Treatment Reminders Order Date Submit Date Provider Last Modified By Organization Details Last Modified Time Details Appointments None recorded. Lab CMP, serum or plasma 2023 024 [facility], [address] [place] [address], [place], [address], 4 10:37:48 HbA1c (hemoglobin A1c), blood 2023 024 [facility], [address] [place] [address], [place], [address], 4 10:37:50 lipid panel, serum 2023 024 [facility], [address] [place] [address] 2, [place], [address], 4 10:37:47 Referral None recorded. Procedures None recorded. Surgeries None recorded. Imaging None recorded. Medication Orders Ozempic 0.25 mg or 0.5 mg (2 mg/3 mL) subcutaneou s pen injector 2023 [id number], [address], [place], [place], [id number], 11/12/202 4 16:49:26 triamcinolo ne acetonide 0.5 % topical ointment 2023 024 [id number], [address] , [place], [place], [id number], 16:39:50 Patient TargetsNo targets recorded. Patient InstructionsNo instructions recorded. Reason for Referral None Reported. Results Created Date Observation Date Name Description Value Unit Range Abnormal Flag Note LastModifiedBy Organization Detail LastModifiedTime 05/22/20 24 05/22/2024 XR, abdom en No observ ation record ed. [email or web address], [place], [address], 05/24/2024 14:00:55 Result Notes None recorded. 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 Was on anticoag ulation for 6 months. 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 SANDRA PRAKASH MD Attn: Accounting ,[address] [place], [address] , [facility] - [place] 4 11:29:17 Elevated blood-pr essure reading without diagnosi s of hyperten petra 390471755 Completed 202302/22/2024 SANDRA PRAKASH MD Attn: Accounting ,[address] [place], [address] , [place] [facility] 4 10:01:50 Type 2 diabetes mellitus 48634842 Active 2023 SANDRA PRAKASH MD Attn: Accounting ,[address] [place], [address] , [place] 4 10:02:54 Abnormal urine 699722172 Active 2023 SANDRA PRAKASH MD Attn: Accounting ,[address] [facility], [place], [address] , [place] [facility] 4 10:02:37 Depressi ve disorder 96532594 Active 2023 SANDRA PRAKASH MD Attn: Accounting ,[address] [facility], [place], [address] , [place] [facility] 4 10:02:50 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 295864920 Active 2023 SANDRA PRAKASH MD Attn: Accounting ,[address] [facility], [place], [address] , [place] [facility] 4 10:02:40 [facility] hyperten petra 21539844 Active 2023 SANDRA PRAKASH MD Attn: Accounting ,[address] [facility], [place], [address] , [place] [facility] 4 10:02:52 Hepatiti s B non-immu ne 431243420 Active 2023 SANDRA PRAKASH MD Attn: Accounting ,[address] [facility], [place], [address] , [place] [facility] 4 12:04:45 Disorder of nail 19620036 Active 2023 SANDRA PRAKASH MD Attn: Accounting ,[address] [facility], [place], [address] , [place] [facility] 4 15:31:26 Hyperlip idemia 65931260 Active SANDRA PRAKASH MD Attn: Accounting ,[address] [facility], [place], [address] , [place] [facility] 4 11:19:18 Pulmonar y embolism 05802651 Completed 201402/07/2024 SANDRA PRAKASH MD Attn: Accounting ,[address] [facility], [place], [address] , [place] [facility] 4 11:18:04 Tobacco dependen ce syndrome 10945152 Completed 02/07/2024 SANDRA PRAKASH MD Attn: Accounting ,[address] [facility], [place], [address] , [facility] - [facility] 4 08:38:22 Verruca vulgaris 05463157 Active Gunjan Robles PA-C Attn: Accounting ,[address] [place], [address] , [place] [facility] 5 17:59:30 Bacteria l vaginosi s 433299570 Completed 02/07/2024 SANDRA PRAKASH MD Attn: Accounting ,[address] [place], [address] , [facility] - [facility] 4 11:19:33 Blood glucose outside referenc e range 792053718 Completed 02/07/2024 SANDRA PRAKASH MD Attn: Accounting ,[address] [place], [address] , [facility] - [facility] 4 11:19:35 Herpes simplex 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 Procedures Surgical History Date Name Laterality Status Provider Name and Address Organization Details Recorded Time 02/07/20 24 Date of Last Pap Smear completed Gail Quinonez MA [place] 02/22/2024 08:41:05 06/17/20 15 Cryosurgery Warts/Skin Tags completed Gunjan Robles PA-C Attn: Accounting,[address] [place], [address], [place] [facility] 06/17/2015 17:58:37 08/01/19 08 Cholecystectomy completed Gail Quinonez [place] - [facility] 02/07/2024 08:25:03 08/01/19 07 Oral surgery procedure completed Gail Quinonez [place] 02/07/2024 08:25:29 Imaging Results None recorded. Procedure Notes None recorded. Medical Equipment None Reported. Allergies Allergen ID Allergen Name Allergen Category Reaction Reaction Severity Criticality Documentation Date Start Date Code Code System Note Provider Name and Address Organization Details Recorded Time 116701 Wellbutri n medicatio n itching Not available Not available 02/22/2024 64220 RxNorm BUCK [place], [place] - [facility] 4 08:39:04 78095 penicilli n G Not available edema Not available Not available 06/17/2015 7980 RxNorm BUCK [place], [place] - [facility] 5 15:21:58 43504 Advil medicatio n edema Not available Not available 06/17/2015 16176 0 RxNorm [place], [place] - [facility] 5 15:21:58 33152 Aleve medicatio n edema Not available Not available 06/17/2015 61174 1 RxNorm [place]CK [place], [place] - [facility] 5 15:21:58 04670 Non-stero idal anti-infl ammatory agent (product) medicatio n edema Not available Not available 06/17/2015 31118 005 SNOMED BUCK [place], [place] - [facility] [...] No t Available Vitals Date Recorded Body height Body mass index (BMI) Body weight Oxygen saturation Oxygen saturation in Arterial blood by Pulse oximetry Heart rate Body temperature Systolic blood pressure Diastolic blood pressure Provider Name and Address Organization Details Last Updated DateTime 4 176.53 cm 41.3 kg/m2 865574. 23 g 98 % 98 % 78 /min 98.4 [degF] 126 mm[Hg] 87 mm[Hg] Gunjan Irving MA [place] - [facility] 16:06:59 Social History Question Answer Notes LastModified by Organizat ion Details LastModified Time Tobacco Smoking Status Former Smoker 02/07/24 quit 2021 Gail Quinonez MA null, [place] - [facility] 02/07/2024 08:21:46 Do You Have An Advance Directive? No Information not available 06/17/2015 What Is Your Level Of Alcohol Consumption? Occasional [email or web address] Information not available 06/17/2015 Are You Blind Or Do You Have Difficulty Seeing? Yes 02/07/24 Wears Glasses Information not available 02/07/2024 What Is Your Level Of Caffeine Consumption? Occasional [email or web address] Information not available 06/17/2015 How Much Tobacco Do You Chew? None [email or web address] Information not available 06/17/2015 In The 14 [...] Type Of Diet Are You Following? REGULAR [email or web address] Information not available 06/17/2015 Which Illicit Or Recreational Drugs Have You Used? 0 [email or web address] Information not available 06/17/2015 Do You Or Have You Ever Used E-cigarettes Or Vape? 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 Yes Information not available 02/07/2024 Hard Of Hearing Or Deaf In One Or Both Ears? Yes Information not available 02/07/2024 Legally Blind In One Or Both Eyes? No [email or web address] Information not available 06/17/2015 Live Alone Or [...] How Many Children Do You Have? 0 Information not available 06/17/2015 What Is Your Relationship Status? Information not available 02/07/2024 Do You Use Your Seat Belt Or Car Seat Routinely? Yes Information not available 02/07/2024 Seat Belts Used Routinely Yes [email or web address] Information not available 06/17/2015 Are You Sexually Active? No 02/07/24 States Has Not Been Sexually Active Since 07/2023 Information not available 02/07/2024 Smoke Alarm In Home Yes [email or web address] Information not available 06/17/2015 Do You Have Smoke And Carbon Monoxide Detectors In Your Home? Yes Information not available 02/07/2024 At What Age Did You Start Smoking Tobacco? 18 [email or web address] Information not available 06/17/2015 Are You Passively Exposed To Smoke? No [email or web address] Information not available 06/17/2015 Do You Or Have You Ever Used Smokeless Tobacco? Never Used Smokeless Tobacco Information not available 02/07/2024 How Much Tobacco Do You Smoke? No Information not available 02/07/2024 Do You Feel Stressed (tense, Restless, Nervous, Or Anxious, Or Unable To Sleep At Night)? [id number] Information not available 02/07/2024 Do You Use [...] you able to care for yourself? Yes Information n ot available 06/17/2015 What is your exercise level? None [email or web address] Information not available 06/17/2015 Mental Status None [...] History Condition Response Coronary Artery Disease N Atrial Fibrillation N High Blood Pressure N Thyroid Problems N Kidney or Bladder Problems Y Depression Y COPD N Blood Clots Y GI Problems Y Have you had a mammogram in the last yea r? N Skin Problems N Eating Disorder N Anemia N Heart Attack (DC) N Diabetes N Anxiety Disorder N Muscle, Joint, or Bone Problems N Seizures/Epilepsy N Have you had a colonoscopy in the last 1 0 years? N Arthritis N Acid Reflux (GERD) Y Cancer N Stroke N Allergies Y Asthma N ADHD N Substance Abuse N High Cholesterol [...] Immunizations Vaccine Type Date Status Note Provider Nam e and Address Organization Details Recorded Time Tdap 7 completed SANDRA PRAKASH MD Attn: Accounting[address] [place], [address], [facility] 02/07/2024 11:22:57 Pneumococcal conjugate PCV20, polysaccharide HTT377 conjugate, adjuvant, PF 4 completed Gunjan Irving MA [facility], [place] - [facility] 06/12/2024 16:46:43 Past Encounters Encounter ID Performer Location Encounter Start Date Encounter Closed Date Diagnosis/Indication Diagnosis SNOMED-CT Code Diagnosis ICD10 Code [id number] SANDRA PRAKASH MD [facility] (MARKETING SUPPORT SPECIALIST) [address] [place] [address] 06/12/2024 15:44:31 06/14/2024 15:13:59 Type 2 diabetes mellitus 96711759 E11.9 Hyperlipidemia 27230840 E78.5 Alanine aminotransferase above reference range 013020556 R74.01 Administra tion of pneumococcal vaccine 04072500 Z23 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 Influenza vaccination declined 108901560 Z28.21 Night sweats 85854607 R6 1 Health Concerns Section Related Observation LastModified by Organization Detai ls LastModified Time None Recorded Concern Status LastModified by Organization Details LastModified Time None Recorded Payers Encounter Date Sequence Insurance Name Policy Number Policy Sloan Covered Member ID Sloan Member ID Guarantor Name 06/12/2024 1 [facility] [id number] Anny García [id number] Anny García Notes Date Note Type Note Provider Name and Address Organization Details Recorded Time 06/12/2024 text/html Diabetes follow upSymptoms- Vision problems: [...] history of DVT/PE provoked by OCP use SANDRA PRAKASH MD Attn: Accounting[address] [place], [address], [facility] - [facility] 06/12/2024 16:52:08 OBGyn Episode No OBEpisode recorded.
--- OUTSIDE RECORDS SUMMARY | 2024-07-17 01:24 | XMS_ITS | Encounter Summary ---
[facility] Organization [facility] Address [address] [place] [address] Phone Care Team Providers Care Electronic Equipment Repairer Name Role Phone Wesley Hardy MD Primary Care Provider [phone] Reason for Visit * Reason Onset Date Comments CALL REPORT 08/04/2017 Encounter Details Date Type Department Care Team (Late st Contact Info) Description 08/04/2017 [facility] [address] [place] [address] Therese Robledo LPN CALL REPORT Social History Tobacco Use Types Packs/Day Years Used Date Smoking Tobacco: Former Cigarettes 1 13.7 2 - 04/2017 Smokeless Tobacco: Never Alcohol Use Standard Drinks/Week Comments Yes 0 (1 standard drink = 0.6 oz pur e alcohol) Comments Unknown Sex and Gender Information Value Date Recorded Sex Assigned at Not on file Legal Sex 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 Gender Identity Not on file Sexual Orientation Not on file Occupation Industry Job Start Date Job End Date Not on file Not on file Not on file Not on file documented as of this encounter Miscellaneous Notes * Telephone Encounter - Imelda Mansfield MA - 08/04/2017 4:24 PM CST Spoke with pt - she is aware of results - however issue still present without any dx - offered appt- pt agreed - transferred to reception interviewer to [facility] PROJECT COORDINATOR * Telephone Encounter - Wesley Hardy MD - 08/04/2017 4:09 PM CST Please advise patient of result if she is not already aware, and ask her if she needs a follow up in the office. PROJECT COORDINATOR * Telephone Encounter - Therese Robledo LPN - 08/04/2017 11:49 AM IT PROJECT COORDINATOR Call Report per Slime @ [facility] Ultrasound. Left Lower Extremity Venous Doppler--Negative for DVT FYI to [facility]--pt was seen @ [facility] ER yesterday. The ER Physician ordered this test, did give pt 1 dose of lovenox, and ordered the test results be called to [facility]. PROJECT COORDINATOR documented in this encounter Plan of Treatment Not on file documented as of this encounter Visit Diagnoses Not on filedocumented in this encounter Care Teams Electronic Equipment Repairer Relationship Specialty Start Date End Date Wesley Hardy MD [address] [place] [address] PCP - General Infectious Diseases 04/20/17 documented as of this encounter
--- OUTSIDE RECORDS SUMMARY | 2024-07-17 01:24 | XMS_ITS | Encounter Summary ---
Author Organization [facility] Address [address] [place] [address] Phone Care Team Providers Care Narcotics Detective Name Role Phone Wesley Hardy MD Primary Care Provider [phone] Encounter Details Date Type Department Care Team (Late st Contact Info) Description 05/20/2017 10:30 AM CDT Office Visit [facility] [address] [place] [address] Wesley Hardy MD [address] [place] [address] [place] [address] [id number] Persistent mood disorder (CMS/HCC) (Primary Dx); History of pulmonary embolism; Irritable bowel syndrome with diarrhea; Tobacco abuse; Non morbid obesity due to excess calories Social History Tobacco Use Types Packs/Day Years Used Date Smoking Tobacco: Former Cigarettes 1 13.7 2 - 04/2017 Smokeless Tobacco: Never Alcohol Use Standard Drinks/Week Comments Yes 0 (1 standard drink = 0.6 oz pur e alcohol) Comments Unknown Sex and Gender Information Value Date Recorded Sex Assigned at Not on file Legal Sex Female 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 MECHANIC Gender Identity Not on file Sexual Orientation Not on file Occupation Industry Job Start Date Job End Date Not on file Not on file Not on file Not on file documented as of this encounter Last Filed Vital Signs Vital Sign Reading Time Taken Comments Blood Pressure 120/84 05/20/2017 10:30 AM CDT Pulse 88 05/20/2017 10:30 AM CDT Temperature 36.7 ??C (98.1 ??F) 05/20/2017 10:30 AM C DT Respiratory Rate 16 05/20/2017 10:30 AM CDT Oxygen Saturation 97% 05/20/2017 10:30 AM CDT Inhaled Oxygen Concentration - - Weight 117.9 kg (260 lb) 05/20/2017 10:30 AM CDT Height 176.5 cm (5' 9.5 ) 05/20/2017 10:30 AM CD T Body Mass Index 37.84 05/20/2017 10:30 AM CDT documented in this encounter Patient Instructions * Patient Instructions* Wesley Hardy MD - 05/20/2017 10:30 AM CDT Continue current medications. Schedule GI consultation when ready. Continue to abstain from cigarettes. Continue weight loss efforts. Follow up in 6 months. documented in this encounter Progress Notes * Wesley Hardy MD - 05/20/2017 10:30 AM CDT Persistent mood disorder (CMS/HCC) - Wellbutrin seems to be helping her mood. She feels quite a bitbetter. - Plan: Continue current therapy. History of pulmonary embolism - she has had no recurrence of the symptoms she originally presented with two years ago. She completed the planned course of therapy and has not been on anticoagulation for about 18 months. She was worried because Provera was recently prescribed for menstrual issues, but this is relatively lower risk compared to estrogen containing products. - Plan: Continue to monitor closely. Irritable bowel syndrome with diarrhea - these are longstanding symptoms, and we had previously recommended GI workup, but for now she wants to defer due to expenses. - Plan: She will inform us when she is able to proceed with additional workup. Tobacco abuse - she has managed to quit smoking which is great. First she had considerable cravings, but the Wellbutrin seems to help with that as well. - Plan: She will work on staying off cigarettes. Her cardiovascular and lung cancer risk will return more less to baseline after about 10 years. Non morbid obesity due to excess calories - she has not gained any weight which is great considering that she has managed to quit smoking. She continues to work on her diet and asked for advice. We went over various diet strategies and calculated her basal energy expenditure. We printed out some patient information from up-to-date. - Plan: We will see her back in six months or sooner as needed. Routine/preventive care. She got her flu shot and tetanus at her employer which happens to be [employer]. We entered the information into her record. She will continue to follow up with Dr. Te Goodwin regarding her endocrine and woman's health issues. HPI: The patient presents for follow-up of various problems as described above. She also has a mildmixed hyperlipidemia, but her Vilonia risk is only 5 percent even when her smoking status is taken into account. Normally we would not recommend cholesterol treatment at that level which is just fine with her because when she took cholesterol medicine previously it gave her some unpleasant side effects. Review of Systems Constitutional: Negative for fever and unexpected weight change. Respiratory: She has successfully quit smoking and has not had a cigarette for about two weeks now. Cardiovascular: Vilonia risk from her recent cholesterol values is about 5 percent. Gastrointestinal: She does not want any additional workup of her GI symptoms at this time. See previous note. Endocrine: She is working on getting her weight down. We also went over her cholesterol values. Current Outpatient Prescriptions: ??? buPROPion (WELLBUTRIN) 100 [...] Penicillins ??? Pseudoephedrine ??? Venom-Honey Bee Unknown Vitals: 05/20/17 1030 BP: 120/84 Pulse: 88 Resp: 16 Temp: 36.7 ??C (98.1 ??F) SpO2: 97% Weight: 117.9 kg (260 lb) Height: 176.5 cm (5' 9.5 ) Physical Exam Constitutional: No distress. Pulmonary/Chest: Effort normal. Psychiatric: She has a normal mood and affect. Her behavior is normal. Thought content normal. Lab on 05/17/2017 Component Date Value ??? Estradiol 05/17/2017 66 ??? FSH 05/17/2017 4.2 Orders Only on 05/11/2017 Component Date Value ??? Report status 05/17/2017 CANCELED ??? Clinical information 05/17/2017 ??? LMP 05/17/2017 NONE GIVEN ??? Previous Pap 05/17/2017 NEG 2014 ??? Prev. Bx 05/17/2017 NEG 2014 ??? Interpretation 05/17/2017 ??? Pap, specimen adequacy 05/17/2017 ??? Pap, general categorizat* 05/17/2017 CANCELED ??? HPV interp 05/17/2017 ??? Infection: 05/17/2017 CANCELED ??? COMMENTS 05/17/2017 ??? Raised Printer 05/17/2017 ??? Review reservations agent 05/17/2017 ??? Pathologist 05/17/2017 CANCELED ??? Human papillomavirus RNA* 05/17/2017 Not Detected Hospital Outpatient Visit on 05/03/2017 Component Date Value ??? Testosterone 05/03/2017 45 ??? Thyroid Stimulating Horm* 05/03/2017 1.89 ??? Free T4 05/03/2017 0.73 ??? Prolactin 05/03/2017 7 ??? FSH 05/03/2017 5.8 ??? DHEA-S 05/05/2017 108 Lab on 05/03/2017 Component Date Value ??? LH 05/03/2017 7 Office Visit on 04/20/2017 Component Date Value ??? Glucose 04/21/2017 96 ??? BUN 04/21/2017 10 ??? Creatinine 04/21/2017 0.77 ??? eGFR NON-AFR. ZAMBIAN 04/21/2017 101 ??? EGFR 04/21/2017 118 ??? BUN/creat ratio 04/21/2017 NOT APPLICABLE ??? Sodium 04/21/2017 139 ??? Potassium, pl 04/21/2017 4.4 ??? Chloride 04/21/2017 107 ??? CO2 04/21/2017 26 ??? Calcium 04/21/2017 9.5 ??? Protein, sr 04/21/2017 7.2 ??? Albumin 04/21/2017 4.4 ??? Globulin 04/21/2017 2.8 ??? Alb/glob ratio 04/21/2017 1.6 ??? Bilirubin 04/21/2017 0.6 ??? Alk phos 04/21/2017 76 ??? AST 04/21/2017 20 ??? ALT (SGPT) 04/21/2017 27 ??? Cholesterol 04/21/2017 215* ??? HDL 04/21/2017 37* ??? Triglycerides 04/21/2017 219* ??? LDL 04/21/2017 142* ??? Chol/HDL ratio 04/21/2017 5.8* ??? Non-HDL, (LDL+VLDL) 04/21/2017 178* documented in this encounter Plan of Treatment Not on file documented as of this encounter Visit Diagnoses Diagnosis Persistent mood disorder (HCC)- Primary History of pulmonary embolism Personal history of venous thrombosis and embolism Irritable bowel syndrome with diarrhea Irritable bowel syndrome Tobacco abuse Tobacco use disorder Non morbid obesity due to excess calories documented in this encounter Discontinued Medications Medication Sig Discontinue Reason Start Date End Da te BOOSTRIX TDAP 2.5-8-5 Lf-mcg-Lf/0.5mL vaccineIndications:Diphther nn-Jhmtnnewo-Poupfmy Combined Prevention ADM 0.5ML IM UTD 05/07/2017 05/08/2017 documented as of this encounter Historical Medications * This list may reflect changes made after this encounter. BOOSTRIX TDAP 2.5-8-5 Lf-mcg-Lf/0.5mL vaccineIndications :Diphtheria-Pertus sis-Tetanus Combined Prevention ADM 0.5ML IM UTD 0 05/07/2017 05/08/2017 added in this encounter Care Teams Narcotics Detective Relationship Specialty Start Date End Date Wesley Hardy MD [address] [place] [address] PCP - General Infectious Diseases 04/20/17 documented as of this encounter
--- OUTSIDE RECORDS SUMMARY | 2024-07-17 01:24 | XMS_ITS | Encounter Summary ---
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 60 tablet 11 04/20/2017 8 medroxyPROGESTERo ne (PROVERA) 10 mg tabletIndications :Polycystic ovarian syndrome Take 1 tablet (10 mg total) by mouth daily for 10 days. Each month 30 tablet 3 05/11/2017 7 documented as of this encounter Discharge Disposition Disposition Code Departure Means Destination Discharge to home or self care documented in this encounter Plan of Treatment Not on file documented as of this encounter Procedures Procedure Name Priority Date/Time Associated Diagnosis Comments DISCHARGE LABORATORY CUMULATIVE REPORT 05/17/2017 12:00 AM CDT documented in this encounter Results * DISCHARGE LABORATORY CUMULATIVE REPORT (05/17/2017 12:00 AM CDT) Narrative 05/17/2017 12:00 AM CDT Ordered by an unspecified provider. us Historical Provider LAB BLOOD ORDERABLES Catina l Result documented in this encounter Visit Diagnoses Not on filedocumented in this encounter Care Teams Biodiesel Technology Manager Relationship Specialty Start Date End Date Wesley Hardy MD [address] [place] [address] [place] [id number] PCP - General Infectious Diseases 04/20/17 documented as of this encounter
--- OUTSIDE RECORDS SUMMARY | 2024-07-17 01:24 | XMS_ITS | Encounter Summary ---
Author Organization [facility] Healthcare Address [address] [place] [address] Care Team Providers Care Bankruptcy Law Specialist Name Role Phone Wesley Hardy MD Primary Care Provider [phone] Encounter Details Date Type Department Care Team (Late st Contact Info) Description 02/25/2024 Telephone [facility] [address] [place] [address] [address]rd [address] [place] [address] Miriam Powell Social History Tobacco Use Types Packs/Day Years Used Date Smoking Tobacco: Every Day Cigarettes 1 13.7 Started: 2003; Last attempted to quit: 04/2017 Smokeless Tobacco: Never Alcohol Use Standard Drinks/Week Comments Yes 0 (1 standard drink = 0.6 oz pur e alcohol) Comments Unknown Sex and Gender Information Value Date Recorded Sex Assigned at Not on file Legal Sex Female 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 Radha Andrade RN 02/24/2024 8:50 AM CDT Please schedule pt: With: Resident Appointment Type: IGY Reason: AUB When: Next Available Material Checker: GUS PA: [facility] documented in this encounter Plan of Treatment Not on file documented as of this encounter Visit Diagnoses Not on filedocumented in this encounter Care Teams Bankruptcy Law Specialist Relationship Specialty Start Date End Date Wesley Hardy MD [address] [place] [address] PCP - General Infectious Diseases 04/20/17 documented as of this encounter
--- OUTSIDE RECORDS SUMMARY | 2024-07-17 01:24 | XMS_ITS | Clinical Summary ---
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 She should try to keep her legs elevated as much as possible. Wear support hose. Despite a stated allergy to Aleve and Advil, she says she takes ibuprofen all the time for various aches and pains and does not have any reaction, so she can take 2 or 3 [id number] ibuprofen 3 times a day for one [...] Next Due Influenza, Unspecified 04/12/2017 Tdap 05/07/2017 Surgical History Surgery Date Site/Laterality Comments CHOLECYSTECTOMY 08/01/2007 - 07/31/2008 Gallstones SKIN SURGERY 03/23/2020 Left Laceration repair, left thumb, [facility]. Medical History Medical History Date Comments Hx Other Medical ammenorhea Anxiety disorder Anxiety Family History Medical History Relation Name Comments Pulmonary embolism Brother Endometriosis Mother Diabetes type II Other 1 Family hist ory of Diabetes -Type II; Hyperlipidemia Other 2 Family histor y of Hyperlipidemia; Hypertension Other 3 Family history of Hypertension; Breast cancer Paternal Grandmother Relation Name Status Comments Brother Mother Other 1 Other 2 Other 3 Paternal Grandmother Social History Tobacco Use Types Packs/Day Years Used Date Smoking Tobacco: Every Day Cigarettes 1 13.7 Started: 2003; Last attempted to quit: 04/2017 Smokeless Tobacco: Never Alcohol Use Standard Drinks/Week Comments Yes 0 (1 standard drink = 0.6 oz pur e alcohol) Comments Unknown Sex and Gender Information Value Date Recorded Sex Assigned at Not on file Legal Sex Female 9:08 PM COOLING MACHINE OPERATOR Gender Identity Not on file Sexual Orientation Not on file Occupation Industry Job Start Date Job End Date Not on file Not on file Not on file Not on file Obstetrics History Para Term AB IAB SAB Ectopic Multiple Livin g Live Births 0 0 0 0 0 0 0 0 0 0 0 Last Filed Vital Signs Vital Sign Reading [...] Plan of Treatment Not on file Insurance [facility] Care Teams Brine Tank Separator Operator Relationship Specialty Start Date End Date Wesley Hardy MD [address] [place] [address] PCP - General Infectious Diseases 04/20/17
--- OUTSIDE RECORDS SUMMARY | 2024-07-17 01:24 | XMS_ITS | Encounter Summary ---
Author Organization [facility] Address [address] [place] [address] Phone Care Team Providers Care Cardiac Cath Lab Radiology Technologist Name Role Phone Wesley Hardy MD Primary Care Provider [phone] Encounter Details Date Type Department Care Team (Late st Contact Info) Description 05/19/2017 Telephone [facility] [address] [place] [address] Shena Tiwari MD [address] [place] [address] Social History Tobacco Use Types Packs/Day Years Used Date Smoking Tobacco: Former Cigarettes 1 13.7 2 - 04/2017 Smokeless Tobacco: Never Alcohol Use Standard Drinks/Week Comments Yes 0 (1 standard drink = 0.6 oz pur e alcohol) Comments Unknown Sex and Gender Information Value Date Recorded Sex Assigned at Not on file Legal Sex Female 9:08 PM DIRECTOR OF CRITICAL CARE Gender Identity Not on file Sexual Orientation Not on file Occupation Industry Job Start Date Job End Date Not on file Not on file Not on file Not on file documented as of this encounter Miscellaneous Notes * Telephone Encounter - Tori Patiño LPN - 05/19/2017 12:33 PM CDT Normal pap veneer measurer sent. * Telephone Encounter - Shena Tiwari MD - 05/19/2017 12:24 PM CDT Please notify patient of negative Pap, HPV negative. documented in this encounter Plan of Treatment Not on file documented as of this encounter Visit Diagnoses Not on filedocumented in this encounter Care Teams Cardiac Cath Lab Radiology Technologist Relationship Specialty Start Date End Date Wesley Hardy MD [address] [place] [address] [place] [address] PCP - General Infectious Diseases 04/20/17 documented as of this encounter
--- OUTSIDE RECORDS SUMMARY | 2024-07-17 01:25 | XMS_ITS | Encounter Summary ---
Author Organization [facility] Healthcare Address [address] [place] [address] Care Team Providers Care Logging Tractor Operator Name Role Phone Jaden Lam DO Primary Care Provider [phone] Encounter Details Date Type Department Care Team (Latest Contact Info) Description 08/03/2014 9:08 AM ENGINEERING OPERATOR Hospital Encounter [facility] [place] [address] [place] [address] [phone] Polycystic ovaries Social History Tobacco Use Types Packs/Day Years Used Date Smoking Tobacco: Never Assessed Alcohol Use Standard Drinks/Week Comments No 0 (1 standard drink = 0.6 oz pur e alcohol) Comments Unknown Sex and Gender Information Value Date Recorded Sex Assigned at Not on file Legal Sex Female 9:08 PM ENGINEERING OPERATOR Gender Identity Not on file Sexual Orientation Not on file documented as of this encounter Plan of Treatment Not on file documented as of this encounter Procedures Procedure Name Priority Date/Time Associated Diagnosis Comments US PELVIS W ENDOVAGINAL Routine 08/03/2014 9:14 AM ENGINEERING OPERATOR documented in this encounter Results * US Pelvis W Endovaginal (08/03/2014 9:14 AM ENGINEERING OPERATOR) Anatomical Region Laterality Modality Pelvis N/A Ultrasound 08/03/2014 9:14 AM ENGINEERING OPERATOR Impressions 08/03/2014 11:38 AM ENGINEERING OPERATOR ?? 1. ??Several small peripheral follicles in each ovary, not greater than 10 as is classically seen with polycystic ovarian syndrome, but sonographic features are not inconsistent with this diagnosis. 2. ??Mild thickening of the endometrium likely related to anovulation. ??Tiny cystic structure along the endometrium which is nonspecific but of probable doubtful clinical significance. THIS IS AN ELECTRONICALLY VERIFIED REPORT 08/03/2014 11:35 AM: ??Dillon Clemente M.D. Dillon Clemente M.D. CH:quoc 11:04 AM 11:25 AM BM [EOD] Narrative 08/03/2014 11:38 AM ENGINEERING OPERATOR EXAMINATION: ??Pelvic and transvaginal ultrasound. HISTORY: ??No last menstrual period, random spotting, polycystic ovarian syndrome. TECHNIQUE: ??Multiple lund-scale and color Doppler images were obtained of the pelvis using a transabdominal and transvaginal approach. COMPARISON: ??None. FINDINGS: ??On transabdominal imaging the uterus measures 7.8 x 4.0 x 3.1 cm. ?? Both ovaries are seen on transabdominal approach. On transvaginal imaging the endometrial complex is mildly thickened at 1.2 cm. There is a tiny cystic structure along the endometrium measuring 0.2 cm. ?? Nabothian cysts are noted. Right ovary measures 3.1 x 3.6 x 2.6 cm. ??Several small peripheral follicles are noted in the right ovary. ??Left ovary measures 3.0 x 2.1 x 3.1 cm. ?? Several small peripheral follicles are noted in the left ovary. ??Trace free fluid is seen in the pelvis. Expected color Doppler flow and waveforms are shown in each ovary. Procedure Note Provider, MD Dane - 12/16/2020 EXAMINATION: Pelvic and transvaginal ultrasound. HISTORY: No last menstrual period, random spotting, polycystic ovarian syndrome. TECHNIQUE: Multiple lund-scale and color Doppler images were obtained ofthe pelvis using a transabdominal and transvaginal approach. COMPARISON: None. FINDINGS: On transabdominal imaging the uterus measures 7.8 x 4.0 x 3.1cm. Both ovaries are seen on transabdominal approach. On transvaginal imaging the endometrial complex is mildly thickened at 1.2cm. There is a tiny cystic structure along the endometrium measuring 0.2 cm. Nabothian cysts are noted. Right ovary measures 3.1 x 3.6 x 2.6 cm. Several small peripheralfollicles are noted in the right ovary. Left ovary measures 3.0 x 2.1 x 3.1 cm. Several small peripheral follicles are noted in the left ovary. Tracefree fluid is seen in the pelvis. Expected color Doppler flow and waveforms are shown in each ovary. IMPRESSION: 1. Several small peripheral follicles in each ovary, not greater than 10as is classically seen with polycystic ovarian syndrome, but sonographicfeatures are not inconsistent with this diagnosis. 2. Mild thickening of the endometrium likely related to anovulation.Tiny cystic structure along the endometrium which is nonspecific but ofprobable doubtful clinical significance. THIS IS AN ELECTRONICALLY VERIFIED REPORT 08/03/2014 11:35 AM: Dillon Clemente M.D. Dillon Clemente M.D. CH:quoc 11:04 AM 11:25 AM [facility] [EOD] us Karen Monterroso DO IMG US PROCEDURES Final Re sult documented in this encounter Visit Diagnoses Diagnosis Polycystic ovaries documented in this encounter Care Teams Logging Tractor Operator Relationship Specialty Start Date End Date Jaden Lam DO [address] [place] [id number] PCP - General 07/10/08 04/19/17 documented as of this encounter
--- OUTSIDE RECORDS SUMMARY | 2024-07-17 01:25 | XMS_ITS | Encounter Summary ---
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 Name Role Phone Jaden Lam DO Primary Care Provider [phone] Encounter Details Date Type Department Care Team (Late st Contact Info) Description 02/08/2015 5:27 PM CDT - 02/14/2015 11:10 AM CDT Hospital [place] [id number] [id number] Other pulmonary embolism and infarction (CMS/HCC); Pneumonia due to infectious organism; Polycystic ovaries; Anxiety state; Personal history of tobacco use, presenting hazards to health; Personal history of allergy to penicillin; Personal history of allergy to analgesic agent; Allergy to insects and arachnids Social History Tobacco Use Types Packs/Day Years Used Date Smoking Tobacco: Never Assessed Alcohol Use Standard Drinks/Week Comments No 0 (1 standard drink = 0.6 oz pur e alcohol) Comments Unknown Sex and Gender Information Value Date Recorded Sex Assigned at Not on file 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 Gender Identity Not on file Sexual Orientation Not on file documented as of this encounter Last Filed Vital Signs Vital Sign Reading Time Taken Comments Blood Pressure 131/77 02/14/2015 7:51 AM CDT Pulse 80 02/14/2015 7:58 AM CDT Temperature - - Respiratory Rate - - Oxygen Saturation - - Inhaled Oxygen Concentration - - Weight 121 kg (266 lb 12.1 oz) 02/13/2015 8:52 A M CDT Height 175.3 cm (5' 9.02 ) 02/13/2015 8:52 AM CD T Body Mass Index 39.37 02/13/2015 8:52 AM CDT documented in this encounter Discharge Summaries * Provider, MD Dane - 02/14/2015 12:00 AM CDT DISCHARGE SUMMARY - [facility] Patient: MAUDE RODRIGUEZ Account: [id number] Room No: 3615-01 : 1985 Patient Type: IP Attend.: Aris Samuel D.O. Admit Date: 02/08/2015 Dict.: Aris Samuel D.O. Disch. Date: 02/14/2015 Primary care physician: Dr. Angeline Monterroso DISCHARGE DIAGNOSES 1. Pulmonary embolus. 2. Polycystic ovary syndrome. 3. Pneumonia. 4. Anxiety. HISTORY OF PRESENT ILLNESS/REASON FOR ADMISSION The patient is a pleasant 29-year-old female with an underlying medical history of PCOS as well as generalized anxiety disorder who presented to the emergency room because of chest and neck pain. She stated that on the before admission she felt severe pain in her left neck area and some across her chest. She then got very short of breath and felt like she could not breathe very well. She said she gets anxiety quite often and figured this was just related to her anxiety. She eventually calmed down, but then the day before admission it happened again. HOSPITAL COURSE 1. CT with pulmonary embolism protocol did show that she had a large left lower lobe PE. The patient was started on both Coumadin and Lovenox therapy and was bridged over to Coumadin, and it did take her some time to bridge over to Coumadin therapy. Unfortunately, we could not set her up with outpatient Lovenox. In any case, she required significant time to get through her acute pain and anxiety related to the PE. By the day of discharge her INR was therapeutic at 2.17 on 10 mg of Coumadin therapy per bridging protocol. She was originally placed on 10 mg and then titrated down to 8 mg but then her INR actually dropped, and she was placed back on 10 mg therapy and she is now therapeutic. The plan at this point will be for her to get close follow-up with INRs. I had long discussions with her and her mother about the importance of getting her INR checked quite religiously in order to make sure that she is therapeutic. We will set her up to get an INR check in two days and to continue dosing her Coumadin through her primary care physician. Hypercoagulability studies were ordered, however, they are all send-outs. The only study that has returned as of yet is the NEGRITA which was normal. I highly recommend that she continue to follow with her primary care physician about whether she has any hypercoagulability disorder as results should slowly trickle back in. 2. P[address]onia. CT with PE protocol also showed left lower lobe infiltration consistent with some infection vs. atelectasis. She was placed on Levaquin therapy and this will be continued through a full course as an outpatient. 3. PCOS. Was on oral contraceptive pills, however, again I had a detailed discussion with her about the fact that the OCPs may have exacerbated her underlying PE. I recommended that she hold her contraceptive pills for now until she is able to follow up with her SHAKE TABLE OPERATOR, especially in the acute phase of her recent PE. 4. Anxiety. Originally we did place her on some p.r.n. Ativan but she continued to feel very anxious about the PE as well as her ongoing pain. We then placed her on a scheduled dose of Ativan and this seemed like it was too much as it quite sedated her. This was then switched over to a p.r.n. Xanax dose which worked quite well. This will be continued on an outpatient basis with her home bupropion. PROCEDURES/IMAGING CT of the chest/PE done on 02/08/2015 showed highly degraded image quality due to morbid obesity and respiratory motion artifact, significant pulmonary embolism within the left lower lobe pulmonary arteries, bibasilar left greater than right coarse patchy infiltrate. CONSULTATIONS None. DISCHARGE PLAN 1. Discharge condition: Good. 2. Discharge exam: Temperature 96, heart rate 80, respiratory rate 18, O2 saturation 93% on room air, blood pressure 129/72. General: Alert and oriented, no apparent distress. Head: Normocephalic, atraumatic. Cardiac: Rate is regular, no murmurs. Lungs: Clear to auscultation bilaterally. No wheezing. Abdomen is soft, nontender, nondistended. Skin: No edema, no rashes. 3. Discharge destination: Okay to discharge home. 4. Discharge medications: Please see the medication reconciliation list. Will also be given doses of Coumadin 10 mg p.o. daily, levofloxacin 500 mg p.o. daily for three more days, Xanax 0.25 mg p.o. q.6h. p.r.n., and Saint Stephen 5/325 mg one p.o. q.6h. p.r.n. 5. Follow-up: To follow up with primary care physician at next available appointment. 6. Follow-up procedures: The patient is to have PT/INR drawn in two days, on Tuesday, or at a minimum at least by Tuesday with close follow-up with her primary care physician for additional Coumadin adjustment. Greater than one-half hour was spent preparing this discharge summary. 7. Samuel Jimenez/ TD: 02/14/2015 15:12 CC: Dr. Angeline Monterroso Electronically Authenticated by: Aris Samuel MD On 02/15/2015 08:33 AM CDT * Provider, MD Dane - 02/12/2015 12:00 AM CDT DISCHARGE SUMMARY - [facility] Patient: MAUDE RODRIGUEZ Account: [id number] Room No: 3615-01 : 1985 Patient Type: IP Attend.: Aris Samuel D.O. Admit Date: 02/08/2015 Dict.: Aris Samuel D.O. Disch. Date: DATE OF DISCHARGE: 02/12/15. PRIMARY CARE PHYSICIAN: Dr. Karen Monterroso. DISCHARGE DIAGNOSES: 1. Pulmonary embolism. 2. PCOS. 3. Pneumonia. 4. Anxiety. HISTORY OF PRESENT ILLNESS/REASON FOR ADMISSION: The patient is a 29-year-old female with history of PCOS, as well as generalized anxiety disorder that presented to the emergency room because of chest pain and neck pain. She stated on before admission she felt severe pain in her left neck area and some across her chest. She got very short of breath. She also got very anxious. She had figured this was just anxiety, but then it continued over the next day as well. Upon presentation to the emergency room, she was found to have a left sided PE. HOSPITAL COURSE: 1. Pulmonary embolus. CT PE protocol showed a left sided significant pulmonary embolus. Was started on both Lovenox and Coumadin therapy for proper bridging. I had long discussions with the patient and her mother about the implication of the PE and further treatment plan. We continued her on both Lovenox and Coumadin therapy throughout her inpatient stay. By the day of discharge, her INR was therapeutic and we will plan on continuing her on Coumadin therapy as an outpatient. I thoroughly explained to both her and the mother that she definitely needed close followup for proper Coumadin dosing adjustment. I will also plan on having her Coumadin rechecked again in two days for further Coumadin titration. In the beginning she did require oxygen therapy at a level of 2 liters per nasal cannula, but we slowly weaned her off her oxygen therapy and by the day of discharge, she did not have any additional oxygen requirement. She did have episodes of shortness of breath, but I believe this is more related to her underlying anxiety. See treatment below. She also had severe pain during admission requiring a Dilaudid pain pump. This was eventually titrated over to intravenous Dilaudid which was then changed over to p.o. Saint Stephen. She did well with this decrease in pain medication. 2. PCOS. Again, I had discussions with her about her OPC treatment. Obviously, this is making her at high risk for PE. Discussed with her that she would need to have a good discussion with her SHAKE TABLE OPERATOR about continuing oral contraceptive pills now that she has had a PE. 3. Pneumonia. CT also showed patchy infiltrates on the left lower lobe. She was placed on Levaquin therapy while inpatient. Will continue her full treatment plan for another five days of Levaquin as an outpatient as well. 4. Anxiety. We did continue her bupropion and actually put her on Ativan while inpatient. Ativan seemed to sedate her at a significantly high level. Therefore, I switched her over the p.r.n. Xanax therapy which she did much better with. I will plan on keeping her on the p.r.n. Xanax therapy on discharge with her own home bupropion. PROCEDURE/IMAGING: CT chest PE protocol on 02/08/15 showed highly degraded image quality due to morbid obesity and respiratory motion artifact. Significant pulmonary embolism within the left lower lobe, pulmonary arteries, bibasilar left greater than right coarse patchy infiltrate. CONSULTATIONS: None. DISCHARGE PLAN: 1. Discharge condition was good. 2. Discharge exam showed temp 97, heart rate 88, respiratory rate 16, O2 sat 92% on room air, blood pressure 127/81. General: Alert and oriented, no apparent distress. Head: Normocephalic, atraumatic. Cardiac: Rate is regular, no murmurs. Lungs: Clear to auscultation bilaterally. No wheezing. Abdomen is soft, nontender, nondistended. Skin: No edema, no rashes. 3. Discharge destination: Okay to discharge home. 4. Discharge medications: Please see medication reconciliation list. Will also be sending her home on levofloxacin 500 mg p.o. daily times five days, Coumadin 7.5 mg total daily, as well as Saint Stephen 7.5/325 one p.o. q 6 hours p.r.n. as well as Xanax 0.25 mg p.o. q 6 hours p.r.n. 5. Discharge followup: To follow up with her primary care physician at next available appointment. 6. Followup labs and procedures: To get PT and INR drawn on 02/14/15, with results to primary care physician. I even informed the patient if she did not have a proper primary care physician to call our facility and have them contact me about her INR results to dose her Coumadin therapy if she did need that. 7. Greater than one-half hour was spent preparing this discharge summary. Samuel Jimenez/ TD: 02/13/2015 12:13 CC: Dr. Karen Monterroso Electronically Authenticated by: Aris Samuel MD On 02/14/2015 08:17 AM CDT documented in this encounter H&P Notes * Provider, MD Dane - 02/08/2015 12:00 AM CDT HISTORY AND PHYSICAL Patient: MAUDE RODRIGUEZ Account: [id number] Room No: 3615-01 : 1985 Patient Type: IP Attend.: Enrico Harper M.D. Admit Date: 02/08/2015 Dict.: Aris Samuel D.O. Disch. Date: PRIMARY CARE PHYSICIAN: Karen Monterroso M.D. CHIEF COMPLAINT: Chest pain and neck pain. HISTORY OF PRESENT ILLNESS: The patient is a 29-year old female with underlying medical history of PCOS as well as generalized anxiety disorder that presented to the emergency room because of chest pain and neck pain. She states that on evening she felt the severe pain in her left neck area and some across her chest. She then got very short of breath, felt like she could not breathe very well. She said that she gets anxiety quite often, figured this was just related to her anxiety. This eventually calmed down, however, then again yesterday she felt some sharp, chest pain to her left upper chest and neck area and felt rather short of breath causing her to present to the emergency room. Currently she states that her pain is quite a bit better after receiving significant amounts of pain medication from the emergency room and on the medical floor. She denies any active shortness of breath. Upon further workup in the emergency room she was found to have a left sided pulmonary embolus on CT scan. She states that her brother also had a blood clot, required six months of Coumadin therapy. Apparently he has been unable to get additional blood tests to further delineate if he has any underlying coagulation disorder. 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 PAST MEDICAL HISTORY: 1. PCOS. 2. Anxiety. SOCIAL HISTORY: She states that she previously was a smoker for over ten years, just quit back in September. She does not drink, does not use any recreational drugs. FAMILY HISTORY: As reported in the history of the present illness, one brother with a history of pulmonary embolism requiring six months of Coumadin therapy, no other major coagulation disease noted in the immediate family. MEDICATIONS: 1. [place] 0.4/35 mcg tablet daily. 2. Bupropion HDL 150 mg PO daily. 3. Potassium gluconate 550 mg PO daily. ALLERGIES: Advil, Aleve, penicillin and bee stings. REVIEW OF SYSTEMS: General: No recent weight gain or weight loss. Vision: No blurry vision. No change in vision. ENT: No change in hearing. No change in smell. No change in taste. Cardiac: Significant for chest pain and left sided neck pain as detailed in the history of the present illness. No palpitations. Respiratory: Significant for shortness of breath but no cough, no wheezing. Gastrointestinal: No nausea. No vomiting. No change in bowel movements. Genitourinary: No change in urinary urgency or frequency. No blood in urine. Skin: No new rashes or lesions. No new swelling. Hematologic: No new bleeding or bruising. Musculoskeletal: No new joint aches or joint pain. No new muscle aches. Endocrine: No new heat or cold intolerance. Neurologic: No new weakness, numbness, tingling, seizures or headaches. Psych: No new depression, anxiety and no new mood changes. PHYSICAL EXAMINATION: Temperature 98.3, heart rate 91, respiratory rate 18, 02 saturation 96% on two liters nasal cannula, blood pressure 145/76. GENERAL: Alert and oriented, in no apparent distress. HEENT: Head normocephalic, atraumatic. Pupils equal, round, and reactive to light. Oropharynx is clear, pink, and moist. NECK: Is supple, no lymphadenopathy. CARDIAC: Rate is regular, no murmurs. LUNGS: Clear to auscultation bilaterally. No wheezing. ABDOMEN: Is soft, nontender, nondistended. SKIN: Shows no edema, no rashes. MUSCULOSKELETAL: Moving upper and lower extremities with ease. 5 out of 5 muscle strength in upper and lower extremities. NEUROLOGIC: Grossly normal. Cranial nerves II through XII grossly intact. No focal deficits. Good mentation, coordination, and sensation. PSYCHIATRIC: Normal mood, normal behavior, normal conversation. LABORATORY RESULTS ON ADMISSION: Sodium 138, potassium 3.7, chloride 102, glucose 102, BUN 8.7, creatinine 0.75, AST 12, ALT 20, serum beta HCG quantitative was less than five, fibrinogen was 699, INR 1.01, white count 12.66, hemoglobin 13.6, hematocrit 41.5, platelets 215, D-Dimer 1.54, magnesium 2.1, troponin less than .01. CT of chest with pulmonary embolism protocol showed: Highly degraded image quality due to morbid obesity and respiratory motion artifact, significant pulmonary embolism within the left lower lobe pulmonary arteries, bibasilar left greater than right, coarse, patchy infiltrate. The appearance of the infiltrate is somewhat atypical for pulmonary infection although this is not excluded. CT KUB showed normal unenhanced CT of the abdomen and pelvis, no evidence of urinary calculus or obstruction. EKG per my interpretation shows a rate of 103, normal axis, sinus rhythm, no major interval changes, no ST elevations or depressions, no T wave changes. ASSESSMENT AND PLAN: 1. Pulmonary embolus: Patient with chest pain, shortness of breath with CT findings of significant left sided pulmonary embolus, has already been started on both Lovenox and Coumadin therapy. I had a long discussion with the patient and her parents about the implication of the pulmonary embolus and the further treatment plan. She is currently stable. Blood pressure is stable, oxygenating well, no major risk factors. According to risk assessment score she would be considered low risk and I think she would do well with outpatient anticoagulation. I discussed with them that she will be continued on both Lovenox and Coumadin therapy until Coumadin, INRs are appropriate. Currently she is in significant amount of pain, actually on Dilaudid ANDROID ARCHITECT pump, will attempt to slowly wean this down and get her on the oral pain medication to transition her for outpatient care. She will require at least three months of anticoagulation. I will send for anticoagulation panel for further evaluation of underlying coagulation disorders. It is interesting that her brother also had a history of pulmonary embolus, so there may be some genetic factor, however, she is also high risk as she is on OCPs due to PCOS as well as has obese stature. 2. PCOS: Will hold her oral contraceptive pills for the time being. Again, I discussed this in detail with the family and the patient. She is going to need to have a good discussion with her TAIL RIPPER about continuing on oral contraceptive pills. This is unfortunate because she said that she is just now starting to get on a regular cycle because of her oral contraceptive pill, however, she may be at too high risk with underlying pulmonary embolus to continue on such. 3. Pneumonia: CT also shows patchy infiltrates suspicious for pneumonia with elevated white count as well, has been placed on Levaquin therapy, will continue. 4. Anxiety: Will continue on home Bupropion as well as p.r.n. Xanax therapy. 5. VTE prophylaxis: As mentioned, has active pulmonary embolus, is already on both Lovenox and Coumadin therapy, will continue. This patient is expected to stay greater than two midnights. Aris Samuel D.O. LONA/jaxon TD: 02/09/2015 11:27 CC: Karen Monterroso M.D. Electronically Authenticated by: Aris Samuel MD On 02/10/2015 08:12 AM CDT documented in this encounter Plan of Treatment Not on file documented as of this encounter Procedures Procedure Name Priority Date/Time Associated Diagnosis Comments BLOOD PROTHROMBIN TIME (PT) Routine 02/14/2015 3:28 AM CDT DISCHARGE LABORATORY CUMULATIVE REPORT 02/14/2015 BLOOD PROTHROMBIN TIME (PT) Routine 02/13/2015 3:23 AM CDT BLOOD PROTHROMBIN TIME (PT) Routine 02/12/2015 3:57 PM CDT SERUM ESTIMATED GLOMERULAR FILTRATION RATE Routine 02/12/2015 4:05 AM CDT PLASMA BASIC METABOLIC PANEL Routine 02/12/2015 4:05 AM CDT BLOOD PROTHROMBIN TIME (PT) Routine 02/12/2015 4:05 AM CDT BLOOD CELL COUNT (CBC), MORPHOLOGIC EXAM Routine 02/12/2015 4:05 AM CDT BLOOD CELL MORPHOLOGIC EXAM Routine 02/12/2015 4:05 AM CDT SERUM ESTIMATED GLOMERULAR FILTRATION RATE Routine 02/11/2015 4:36 AM CDT PLASMA BASIC METABOLIC PANEL Routine 02/11/2015 4:36 AM CDT BLOOD PROTHROMBIN TIME (PT) Routine 02/11/2015 4:36 AM CDT BLOOD CELL COUNT (CBC), MORPHOLOGIC EXAM Routine 02/11/2015 4:36 AM CDT BLOOD CELL MORPHOLOGIC EXAM Routine 02/11/2015 4:36 AM CDT BLOOD CELL COUNT (CBC), MORPHOLOGIC EXAM Routine 02/10/2015 4:13 AM CDT BLOOD CELL MORPHOLOGIC EXAM Routine 02/10/2015 4:13 AM CDT SERUM ESTIMATED GLOMERULAR FILTRATION RATE Routine 02/10/2015 4:13 AM CDT PLASMA BASIC METABOLIC PANEL Routine 02/10/2015 4:13 AM CDT BLOOD PROTHROMBIN TIME (PT) Routine 02/10/2015 4:13 AM CDT SERUM PROTEIN S ACTIVITY Routine 015 7:03 PM CDT SERUM ANTINUCLEAR AB (NEGRITA) Routine 02/08 7:03 PM CDT SERUM ANTICARDIOLIPIN AB, IGG, IGM Routine 02/08/2015 7:03 PM CDT PLASMA LUPUS ANTICOAGULANT Routine 02/08 7:03 PM CDT PLASMA HOMOCYSTEINE Routine 02/08/2015 7 :03 PM CDT PLASMA FIBRINOGEN Routine 02/08/2015 7:0 3 PM CDT PLASMA ANTITHROMBIN III ACTIVITY Routine 02/08/2015 7:03 PM CDT BLOOD PROTHROMBIN GENE [id number] MUTATION DETECTION Routine 02/08/2015 7:03 PM CDT BLOOD FACTOR V LEIDEN MUTATION Routine 02/08/2015 7:03 PM CDT RENAL COMPUTED TOMOGRAPHY (CT) WITHOUT CONTRAST, STONE PROTOCOL Routine 02/08/2015 4:[address] CHEST W CONTRAST Routine 02/08/2015 4 :10 PM CDT XR CHEST PA LATERAL 2 VIEWS Routine 02/08/2015 2:54 PM CDT SERUM CHORIONIC GONADOTROPIN (HCG), QUANTITATIVE Routine 02/08/2015 2:49 PM CDT SERUM MAGNESIUM Routine 02/08/2015 2:49 PM CDT SERUM ESTIMATED GLOMERULAR FILTRATION RATE Routine 02/08/2015 2:49 PM CDT PLASMA TROPONIN-T Routine 02/08/2015 2:4 9 PM CDT PLASMA COMPREHENSIVE METABOLIC PANEL Routine 02/08/2015 2:49 PM CDT BLOOD PROTHROMBIN TIME (PT) Routine 02/08/2015 2:49 PM CDT BLOOD PARTIAL THROMBOPLASTIN TIME (PTT) Routine 02/08/2015 2:49 PM CDT BLOOD D-DIMER Routine 02/08/2015 2:49 PM CDT BLOOD CELL COUNT (CBC), MORPHOLOGIC EXAM Routine 02/08/2015 2:49 PM CDT BLOOD CELL MORPHOLOGIC EXAM Routine 02/08/2015 2:49 PM CDT ELECTROCARDIOGRAPHY (ECG) 02/08/2015 documented in this encounter Results * (ABNORMAL) Blood prothrombin time (PT) (02/14/2015 3:28 AM CDT) Prothrombin time (PT) 23.3(H) 10.9 - 14.8 seconds HISTORICAL RESULTS INR 2.17 HISTORICAL RESULTS Comment: Interpretive Data Recommended ranges for protime INR: Note: The INR has been validated only for patients on stable oral anticoagulant therapy 2.0 - 3.0 ? Prophylaxis of venous thrombosis (High risk surgery) 2.0 - 3.0 ? Treatment of venous thrombosis 2.0 - 3.0 ? Treatment of pulmonary embolism 2.0 - 3.0 ? Prevention of systemic embolism ?Tissue heart valves ?AMI (to prevent systemic embolism)* ?Valvular heart disease; Atrial Fibrillation 2.5 - 3.5 ? Mechanical prosthetic valves (High risk) 2.0 - 3.0 ? Bileaflet mechanical valve in aortic position *If oral anticoagulant therapy is elected to prevent myocardial infarction, an INR of 2.5 to 3.5 is recommended, consistent with Food and Drug Administration recommendations. Current interpretive data was last revised on 2014. Blood specimen (specimen) 02/14/2015 3:28 AM CDT us Historical Provider LAB BLOOD ORDERABLES Catina l Result HISTORICAL RESULTS * DISCHARGE LABORATORY CUMULATIVE REPORT (02/14/2015) Narrative 02/14/2015 Ordered by an unspecified provider. us Historical Provider LAB BLOOD ORDERABLES Catina l Result * (ABNORMAL) Blood prothrombin time (PT) (02/13/2015 3:23 AM CDT) Prothrombin time (PT) 19.6(H) 10.9 - 14.8 seconds HISTORICAL RESULTS INR 1.73 HISTORICAL RESULTS Comment: Interpretive Data Recommended ranges for protime INR: Note: The INR has been validated only for patients on stable oral anticoagulant therapy 2.0 - 3.0 ? Prophylaxis of venous thrombosis (High risk surgery) 2.0 - 3.0 ? Treatment of venous thrombosis 2.0 - 3.0 ? Treatment of pulmonary embolism 2.0 - 3.0 ? Prevention of systemic embolism ?Tissue heart valves ?AMI (to prevent systemic embolism)* ?Valvular heart disease; Atrial Fibrillation 2.5 - 3.5 ? Mechanical prosthetic valves (High risk) 2.0 - 3.0 ? Bileaflet mechanical valve in aortic position *If oral anticoagulant therapy is elected to prevent myocardial infarction, an INR of 2.5 to 3.5 is recommended, consistent with Food and Drug Administration recommendations. Current interpretive data was last revised on 2014. Blood specimen (specimen) 02/13/2015 3:23 AM CDT Aris Samuel DO LAB BLOOD ORDERABLES Fi nal Result HISTORICAL RESULTS * (ABNORMAL) Blood prothrombin time (PT) (02/12/2015 3:57 PM CDT) Prothrombin time (PT) 19.9(H) 10.9 - 14.8 seconds HISTORICAL RESULTS INR 1.77 HISTORICAL RESULTS Comment: Interpretive Data Recommended ranges for protime INR: Note: The INR has been validated only for patients on stable oral anticoagulant therapy 2.0 - 3.0 ? Prophylaxis of venous thrombosis (High risk surgery) 2.0 - 3.0 ? Treatment of venous thrombosis 2.0 - 3.0 ? Treatment of pulmonary embolism 2.0 - 3.0 ? Prevention of systemic embolism ?Tissue heart valves ?AMI (to prevent systemic embolism)* ?Valvular heart disease; Atrial Fibrillation 2.5 - 3.5 ? Mechanical prosthetic valves (High risk) 2.0 - 3.0 ? Bileaflet mechanical valve in aortic position *If oral anticoagulant therapy is elected to prevent myocardial infarction, an INR of 2.5 to 3.5 is recommended, consistent with Food and Drug Administration recommendations. Current interpretive data was last revised on 2014. Blood specimen (specimen) 02/12/2015 3:57 PM CDT Aris Samuel DO LAB BLOOD ORDERABLES Fi nal Result Performing Organization Address [facility] [place]/[facility] de Phone Number HISTORICAL RESULTS * (ABNORMAL) Plasma basic metabolic panel (02/12/2015 4:05 AM CDT) Sodium 142 135 - 145 mmol/L HISTORICAL RESULTS K, pl 3.9 3.5 - 5.1 mmol/L HISTORICAL RESULTS Chloride 104 97 - 110 mmol/L HISTORICAL RESULTS CO2 27 22 - 32 mmol/L HISTORICAL RESULTS A. gap 15 8 - 16 mmol/L HISTORICAL RESULTS Glucose 94 70 - 199 mg/dl HISTORICAL RESULTS Comment: Interpretive Data Note:The glucose is assumed non fasting Fastin-99 mg/dL Random: ??70-199 mg/dL Either a fasting glucose > 126 mg/dL or a random glucose > 200 mg/dL plus symptoms is diagnostic of diabetes when confirmed on another day. Fasting values > 100 mg/dL but < 125 mg/dL are diagnostic of impaired fasting glucose. Current interpretive data was last revised on 2014. BUN 7.4(L) 8.0 - 25.0 mg/dl HISTORICAL RESULTS Creatinine 0.68 0.60 - 1.10 mg/dl HISTORICAL RESULTS Calcium 8.9 8.6 - 10.2 mg/dl HISTORICAL RESULTS BUN/creat ratio 11 10 - 20 HIST ORICAL RESULTS Plasma 02/12/2015 4:05 AM CDT Aris Samuel DO LAB BLOOD ORDERABLES Fi nal Result Performing Organization Address [facility] [place]/[facility] Co de Phone Number HISTORICAL RESULTS * (ABNORMAL) Blood prothrombin time (PT) (02/12/2015 4:05 AM CDT) Prothrombin time (PT) 21.6(H) 10.9 - 14.8 seconds HISTORICAL RESULTS INR 1.96 HISTORICAL RESULTS Comment: Interpretive Data Recommended ranges for protime INR: Note: The INR has been validated only for patients on stable oral anticoagulant therapy 2.0 - 3.0 ? Prophylaxis of venous thrombosis (High risk surgery) 2.0 - 3.0 ? Treatment of venous thrombosis 2.0 - 3.0 ? Treatment of pulmonary embolism 2.0 - 3.0 ? Prevention of systemic embolism ?Tissue heart valves ?AMI (to prevent systemic embolism)* ?Valvular heart disease; Atrial Fibrillation 2.5 - 3.5 ? Mechanical prosthetic valves (High risk) 2.0 - 3.0 ? Bileaflet mechanical valve in aortic position *If oral anticoagulant therapy is elected to prevent myocardial infarction, an INR of 2.5 to 3.5 is recommended, consistent with Food and Drug Administration recommendations. Current interpretive data was last revised on 2014. Blood specimen (specimen) 02/12/2015 4:05 AM CDT Aris Samuel DO LAB BLOOD ORDERABLES Fi nal Result HISTORICAL RESULTS * Blood cell morphologic exam (02/12/2015 4:05 AM CDT) Pathologist [facility] Neutrophils 48.7 44.0 - 80.0 % HISTORICAL RESULTS Immature granulocytes 0.3 0.0 - 1.0 % HISTORICAL RESULTS Lymphocytes 39.8 13.0 - 44.0 % HISTORICAL RESULTS Monos 8.8 2.0 - 11.0 % HISTORICAL RESULTS Eosinophils 1.8 0.0 - 6.0 % HISTORICAL RESULTS Basophils 0.6 0.0 - 3.0 % HISTORICAL RESULTS Neutrophils, abs 3.2 1.6 - 7.0 K/cumm HISTORICAL RESULTS Immature granulocyte, abs 0.0 0.0 - 0.0 K/cumm HISTORICAL RESULTS Lymphocytes, abs 2.6 0.5 - 4.3 K/cumm HISTORICAL RESULTS Monocytes, absolute 0.6 0.1 - 1.0 K/cumm HISTORICAL RESULTS Eosinophils, abs 0.1 0.0 - 0.6 K/cumm HISTORICAL RESULTS Basophils, abs 0.0 0.0 - 0.3 K/cumm HISTORICAL RESULTS Blood specimen (specimen) 02/12/2015 4:05 AM CDT Aris Samuel DO LAB BLOOD ORDERABLES Fi nal Result Performing Organization Address City/[facility] de Phone Number HISTORICAL RESULTS * (ABNORMAL) Blood cell count (CBC), morphologic exam (02/12/2015 4:05 AM CDT) WBC 6.6 3.8 - 9.8 K/cumm HISTORICAL RESULTS RBC 3.71(L) 3.90 - 5.00 M/cumm HISTORICAL RESULTS Hgb 11.0(L) 12.1 - 15.1 g/dl HISTORICAL RESULTS Hct 34.3(L) 36.1 - 44.3 % HISTORICAL RESULTS MCV 92.5 80.0 - 100.0 fl HISTORICAL RESULTS MCH 29.6 26.7 - 33.7 pg HISTORICAL RESULTS MCHC 32.1(L) 32.7 - 36.0 g/dl HISTORICAL RESULTS Rdw 12.2 11.5 - 14.6 % HISTORICAL RESULTS Platelets 258 140 - 440 K/cumm HISTORICAL RESULTS MPV 10.9 8.0 - 12.0 fl HISTORICAL RESULTS NRBC 0.0 0.0 - 0.0 % HISTORIC AL RESULTS NRBC, abs 0.00 0.00 - 0.00 K/cumm HISTORICAL RESULTS Blood specimen (specimen) 02/12/2015 4:05 AM CDT Aris Samuel DO LAB BLOOD ORDERABLES Fi nal Result Performing Organization Address [facility] [place]/[facility] de Phone Number HISTORICAL RESULTS * Serum estimated glomerular filtration rate (02/12/2015 4:05 AM CDT) eGFR >60 ml/min/1.7 3 m2 HISTORICAL RESULTS Comment: Interpretation of Estimated GFR (eGFR): Normal ?>/= 60 mL/min/1.73m2 Possible Chronic Kidney Disease ??15 - 59 mL/min/1.73m2 Possible Kidney Failure ?< 15 ??mL/min/1.73m2 If -British multiply value by 1.16. ??Estimated glomerular filtration rate is determined by the CKD-EPI equation recommended by the National Kidney Foundation (KDIGO 2012 Clinical Practice Guideline for the Evaluation and Management of Chronic Kidney Disease. ??Kidney Intnl Suppl Aug 2012;3:1). ??The CKD-EPI equation should not be used in acute renal failure or acute kidney injury and is not valid in children. Serum 02/12/2015 4:05 AM CDT Aris Samuel DO LAB BLOOD ORDERABLES [facility] Result HISTORICAL RESULTS * (ABNORMAL) Plasma basic metabolic panel (02/11/2015 4:36 AM CDT) Sodium 141 135 - 145 mmol/L HISTORICAL RESULTS K, pl 4.1 3.5 - 5.1 mmol/L HISTORICAL RESULTS Chloride 104 97 - 110 mmol/L HISTORICAL RESULTS CO2 27 22 - 32 mmol/L HISTORICAL RESULTS A. gap 14 8 - 16 mmol/L HISTORICAL RESULTS Glucose 99 70 - 199 mg/dl HISTORICAL RESULTS Comment: Interpretive Data Note:The glucose is assumed non fasting Fastin-99 mg/dL Random: ??70-199 mg/dL Either a fasting glucose > 126 mg/dL or a random glucose > 200 mg/dL plus symptoms is diagnostic of diabetes when confirmed on another day. Fasting values > 100 mg/dL but < 125 mg/dL are diagnostic of impaired fasting glucose. Current interpretive data was last revised on 2014. BUN 6.6(L) 8.0 - 25.0 mg/dl HISTORICAL RESULTS Creatinine 0.70 0.60 - 1.10 mg/dl HISTORICAL RESULTS Calcium 8.9 8.6 - 10.2 mg/dl HISTORICAL RESULTS BUN/creat ratio 9(L) 10 - 20 HIST ORICAL RESULTS Plasma 02/11/2015 4:36 AM CDT Aris Samuel DO LAB BLOOD ORDERABLES Fi nal Result Performing Organization Address [facility] [place]/[facility] de Phone Number HISTORICAL RESULTS * (ABNORMAL) Blood prothrombin time (PT) (02/11/2015 4:36 AM CDT) Prothrombin time (PT) 21.2(H) 10.9 - 14.8 seconds HISTORICAL RESULTS INR 1.92 HISTORICAL RESULTS Comment: Interpretive Data Recommended ranges for protime INR: Note: The INR has been validated only for patients on stable oral anticoagulant therapy 2.0 - 3.0 ? Prophylaxis of venous thrombosis (High risk surgery) 2.0 - 3.0 ? Treatment of venous thrombosis 2.0 - 3.0 ? Treatment of pulmonary embolism 2.0 - 3.0 ? Prevention of systemic embolism ?Tissue heart valves ?AMI (to prevent systemic embolism)* ?Valvular heart disease; Atrial Fibrillation 2.5 - 3.5 ? Mechanical prosthetic valves (High risk) 2.0 - 3.0 ? Bileaflet mechanical valve in aortic position *If oral anticoagulant therapy is elected to prevent myocardial infarction, an INR of 2.5 to 3.5 is recommended, consistent with Food and Drug Administration recommendations. Current interpretive data was last revised on 2014. Blood specimen (specimen) 02/11/2015 4:36 AM CDT Aris Samuel DO LAB BLOOD ORDERABLES Fi nal Result Performing Organization Address [facility] [place]/[facility] Co de Phone Number HISTORICAL RESULTS * Blood cell morphologic exam (02/11/2015 4:36 AM CDT) Neutrophils 53.1 44.0 - 80.0 % HISTORICAL RESULTS Eosinophils 1.8 0.0 - 6.0 % HISTORICAL RESULTS Immature granulocytes 0.3 0.0 - 1.0 % HISTORICAL RESULTS Basophils 0.5 0.0 - 3.0 % HISTORICAL RESULTS Lymphocytes 36.5 13.0 - 44.0 % HISTORICAL RESULTS Neutrophils, abs 3.2 1.6 - 7.0 K/cumm HISTORICAL RESULTS Monos 7.8 2.0 - 11.0 % HISTORICAL RESULTS Immature granulocyte, abs 0.0 0.0 - 0.0 K/cumm HISTORICAL RESULTS Lymphocytes, abs 2.2 0.5 - 4.3 K/cumm HISTORICAL RESULTS Monocytes, absolute 0.5 0.1 - 1.0 K/cumm HISTORICAL RESULTS Eosinophils, abs 0.1 0.0 - 0.6 K/cumm HISTORICAL RESULTS Basophils, abs 0.0 0.0 - 0.3 K/cumm HISTORICAL RESULTS Blood specimen (specimen) 02/11/2015 4:36 AM CDT Aris Samuel DO LAB BLOOD ORDERABLES Fi nal Result HISTORICAL RESULTS * (ABNORMAL) Blood cell count (CBC), morphologic exam (02/11/2015 4:36 AM CDT) WBC 6.0 3.8 - 9.8 K/cumm HISTORICAL RESULTS RBC 3.49(L) 3.90 - 5.00 M/cumm HISTORICAL RESULTS Hgb 10.4(L) 12.1 - 15.1 g/dl HISTORICAL RESULTS Hct 32.1(L) 36.1 - 44.3 % HISTORICAL RESULTS MCV 92.0 80.0 - 100.0 fl HISTORICAL RESULTS MCH 29.8 26.7 - 33.7 pg HISTORICAL RESULTS MCHC 32.4(L) 32.7 - 36.0 g/dl HISTORICAL RESULTS Rdw 12.4 11.5 - 14.6 % HISTORICAL RESULTS Platelets 217 140 - 440 K/cumm HISTORICAL RESULTS MPV 10.8 8.0 - 12.0 fl HISTORICAL RESULTS NRBC 0.0 0.0 - 0.0 % HISTORIC AL RESULTS NRBC, abs 0.00 0.00 - 0.00 K/cumm HISTORICAL RESULTS Blood specimen (specimen) 02/11/2015 4:36 AM CDT Aris Samuel DO LAB BLOOD ORDERABLES Fi nal Result Performing Organization Address [facility] [place]/[facility] de Phone Number HISTORICAL RESULTS * Serum estimated glomerular filtration rate (02/11/2015 4:36 AM CDT) Pathologist [facility] eGFR >60 ml/min/1.7 3 m2 HISTORICAL RESULTS Comment: Interpretation of Estimated GFR (eGFR): Normal ?>/= 60 mL/min/1.73m2 Possible Chronic Kidney Disease ??15 - 59 mL/min/1.73m2 Possible Kidney Failure ?< 15 ??mL/min/1.73m2 If -British multiply value by 1.16. ??Estimated glomerular filtration rate is determined by the CKD-EPI equation recommended by the National Kidney Foundation (KDIGO 2012 Clinical Practice Guideline for the Evaluation and Management of Chronic Kidney Disease. ??Kidney Intnl Suppl Aug 2012;3:1). ??The CKD-EPI equation should not be used in acute renal failure or acute kidney injury and is not valid in children. Serum 02/11/2015 4:36 AM CDT Aris Samuel DO LAB BLOOD ORDERABLES Fi nal Result Performing Organization Address [facility] [place]/[facility] de Phone Number HISTORICAL RESULTS * Blood cell morphologic exam (02/10/2015 4:13 AM CDT) Neutrophils 51.3 44.0 - 80.0 % HISTORICAL RESULTS Immature granulocytes 0.1 0.0 - 1.0 % HISTORICAL RESULTS Lymphocytes 37.2 13.0 - 44.0 % HISTORICAL RESULTS Monos 9.3 2.0 - 11.0 % HISTORICAL RESULTS Eosinophils 1.5 0.0 - 6.0 % HISTORICAL RESULTS Basophils 0.6 0.0 - 3.0 % HISTORICAL RESULTS Neutrophils, abs 3.7 1.6 - 7.0 K/cumm HISTORICAL RESULTS Immature granulocyte, abs 0.0 0.0 - 0.0 K/cumm HISTORICAL RESULTS Lymphocytes, abs 2.7 0.5 - 4.3 K/cumm HISTORICAL RESULTS Monocytes, absolute 0.7 0.1 - 1.0 K/cumm HISTORICAL RESULTS Eosinophils, abs 0.1 0.0 - 0.6 K/cumm HISTORICAL RESULTS Basophils, abs 0.0 0.0 - 0.3 K/cumm HISTORICAL RESULTS Blood specimen (specimen) 02/10/2015 4:13 AM CDT Aris Samuel DO LAB BLOOD ORDERABLES nal Result Performing Organization Address [facility] [place]/[facility] de Phone Number HISTORICAL RESULTS * (ABNORMAL) Blood cell count (CBC), morphologic exam (02/10/2015 4:13 AM CDT) WBC 7.2 3.8 - 9.8 K/cumm HISTORICAL RESULTS RBC 3.42(L) 3.90 - 5.00 M/cumm HISTORICAL RESULTS Hgb 10.3(L) 12.1 - 15.1 g/dl HISTORICAL RESULTS Hct 32.1(L) 36.1 - 44.3 % HISTORICAL RESULTS MCV 93.9 80.0 - 100.0 fl HISTORICAL RESULTS MCH 30.1 26.7 - 33.7 pg HISTORICAL RESULTS MCHC 32.1(L) 32.7 - 36.0 g/dl HISTORICAL RESULTS Rdw 12.4 11.5 - 14.6 % HISTORICAL RESULTS Platelets 205 140 - 440 K/cumm HISTORICAL RESULTS MPV 11.3 8.0 - 12.0 fl HISTORICAL RESULTS NRBC 0.0 0.0 - 0.0 % HISTORIC AL RESULTS NRBC, abs 0.00 0.00 - 0.00 K/cumm HISTORICAL RESULTS Blood specimen (specimen) 02/10/2015 4:13 AM CDT Aris Samuel DO LAB BLOOD ORDERABLES nal Result Performing Organization Address [facility] [place]/[facility] de Phone Number HISTORICAL RESULTS * (ABNORMAL) Plasma basic metabolic panel (02/10/2015 4:13 AM CDT) Sodium 138 135 - 145 mmol/L HISTORICAL RESULTS K, pl 3.8 3.5 - 5.1 mmol/L HISTORICAL RESULTS Chloride 101 97 - 110 mmol/L HISTORICAL RESULTS CO2 26 22 - 32 mmol/L HISTORICAL RESULTS A. gap 15 8 - 16 mmol/L HISTORICAL RESULTS Glucose 99 70 - 199 mg/dl HISTORICAL RESULTS Comment: Interpretive Data Note:The glucose is assumed non fasting Fastin-99 mg/dL Random: ??70-199 mg/dL Either a fasting glucose > 126 mg/dL or a random glucose > 200 mg/dL plus symptoms is diagnostic of diabetes when confirmed on another day. Fasting values > 100 mg/dL but < 125 mg/dL are diagnostic of impaired fasting glucose. Current interpretive data was last revised on 2014. BUN 5.6(L) 8.0 - 25.0 mg/dl HISTORICAL RESULTS Creatinine 0.65 0.60 - 1.10 mg/dl HISTORICAL RESULTS Calcium 8.7 8.6 - 10.2 mg/dl HISTORICAL RESULTS BUN/creat ratio 9(L) 10 - 20 HIST ORICAL RESULTS Plasma 02/10/2015 4:13 AM CDT Aris Samuel DO LAB BLOOD ORDERABLES Fi nal Result HISTORICAL RESULTS * Serum estimated glomerular filtration rate (02/10/2015 4:13 AM CDT) eGFR >60 ml/min/1.7 3 m2 HISTORICAL RESULTS Comment: Interpretation of Estimated GFR (eGFR): Normal ?>/= 60 mL/min/1.73m2 Possible Chronic Kidney Disease ??15 - 59 mL/min/1.73m2 Possible Kidney Failure ?< 15 ??mL/min/1.73m2 If -British multiply value by 1.16. ??Estimated glomerular filtration rate is determined by the CKD-EPI equation recommended by the National Kidney Foundation (KDIGO 2012 Clinical Practice Guideline for the Evaluation and Management of Chronic Kidney Disease. ??Kidney Intnl Suppl Aug 2012;3:1). ??The CKD-EPI equation should not be used in acute renal failure or acute kidney injury and is not valid in children. Serum 02/10/2015 4:13 AM CDT Aris Samuel DO LAB BLOOD ORDERABLES Fi nal Result Performing Organization Address [facility] [place]/[facility] de Phone Number HISTORICAL RESULTS * (ABNORMAL) Blood prothrombin time (PT) (02/10/2015 4:13 AM CDT) Prothrombin time (PT) 18.3(H) 10.9 - 14.8 seconds HISTORICAL RESULTS INR 1.59 HISTORICAL RESULTS Comment: Interpretive Data Recommended ranges for protime INR: Note: The INR has been validated only for patients on stable oral anticoagulant therapy 2.0 - 3.0 ? Prophylaxis of venous thrombosis (High risk surgery) 2.0 - 3.0 ? Treatment of venous thrombosis 2.0 - 3.0 ? Treatment of pulmonary embolism 2.0 - 3.0 ? Prevention of systemic embolism ?Tissue heart valves ?AMI (to prevent systemic embolism)* ?Valvular heart disease; Atrial Fibrillation 2.5 - 3.5 ? Mechanical prosthetic valves (High risk) 2.0 - 3.0 ? Bileaflet mechanical valve in aortic position *If oral anticoagulant therapy is elected to prevent myocardial infarction, an INR of 2.5 to 3.5 is recommended, consistent with Food and Drug Administration recommendations. Current interpretive data was last revised on 2014. Blood specimen (specimen) 02/10/2015 4:13 AM CDT Aris Samuel DO LAB BLOOD ORDERABLES Fi nal Result Performing Organization Address [facility] [place]/[facility] de Phone Number HISTORICAL RESULTS * (ABNORMAL) Plasma lupus anticoagulant (02/08/2015 7:03 PM CDT) APTT 38.1(H) 25.0 - 37.0 seconds HISTORICAL RESULTS Comment: Interpretive Data Therapeutic heparin range:60.0 - 94.0 sec based on correlation with therapeutic heparin activity range of 0.3 -0.7 Units/mL. Current interpretive data was last revised on 2011. Test performed at [facility], [address] [facility], [place]., [address] Prothrombin time (PT) 13.4(H) 10.0 - 13.3 seconds HISTORICAL RESULTS Comment:Test performed at [facility], [address] [facility], [place]., [address] INR 1.21(H) 0.90 - 1.20 HISTORICAL RESULTS Comment: Interpretive Data Inpatient therapeutic ranges* Atrial fibrillation ?2.0-3.0 INR Venous thrombo-embolism ?2.0-3.0 INR Bioprosthetic heart valve ?* Mechanical heart valve, bileaflet or tilting disk,aortic position ? 2.0-3.0 INR All other,or bileaflet or tilting disk, in mitral position ? 2.5-3.5 INR *See the pharmacy resource directory (PHRED) for an updated copy of the Tool Book at [email or web address] Current Interpretive Data was last revised 2011. Test performed at [facility], [address] [facility], [place]., [address] Lupus anticoagulant, DRVVT 54.50 seconds HISTORICAL RESULTS Comment:Test performed at [facility], [address] [facility], [place]., [address] Lupus anticoagulant, DRVVT, screen ratio 1.67(H) 0.00 - 1.20 ratio HISTORICAL RESULTS Comment:Test performed at [facility], [address] [facility], [place]., [address] Lupus anticoagulant, DRVVT, confirm ratio 1.36 ratio HISTORICAL RESULTS Comment:Test performed at [facility], [address] [facility], [place]., [address] Lupus anticoagulant, DRVVT, confirmation 1.23(H) 0.00 - 1.20 ratio HISTORICAL RESULTS Comment:Test performed at [facility], [address] [facility], [place]., [address] Lupus anticoagulant, PTT 41.8 <=45.0 seconds HISTORICAL RESULTS Comment:Test performed at [facility], [address] [facility], [place]., [address] Lupus anticoagulant, interp Positive HISTORICAL RESULTS Comment: Lupus Anticoagulant Interpretation: Lupus anticoagulants (LA) are acquired autoantibodies that interfere with invitro clotting in a phospholipid-dependent manner. Routine aPTT reagents are not sensitive to inhibition by LA, and should not be used as a screening test. ??The laboratory follows ISTH 2009 guidelines (Pengo,2009) for LA testing and interpretation: Two sensitive methods performed in parallel improve sensitivity. One activates the intrinsic pathway (LA-PTT) and one activates the common pathway (dilute [place] Time dRVVT). Each method begins with a screening step, and if not prolonged for both tests, no further testing is performed and the interpretation is: NO LA DETECTED. If either screening test is prolonged, then additional steps are performed to provide specificity. A POSITIVE occurs if either or both tests produce a positive confirm result. To support a clinical suspicion of antiphospholipid syndrome, persistence of a positive LA result should be confirmed by repeated testing at least 12 weeks later (Selene, 2006). An INDETERMINATE result indicates LA cannot be confirmed or ruled out due to the possible presence of anticoagulant effect, factor deficiency, very weak LA, or factor inhibitors. FALSE POSITIVE causes of LA include autoantibodies to specific factors and IV or PO directed anticoagulants, both associated with increased bleeding. Clinical correlation required. References:1) Tin V, Monica A, Spencer JH, Ortel TL, Latisha M, De Ryne PG. Update of the guidelines for lupus anticoagulant detection. J Thromb Haemost. 2009;7:4045-8411. 2) Selene Li et al. International consensus statement on an update of the classification criteria for definite antiphospholipid syndrome (APS). J Thromb Haemost. 2006;4:295-306. Current interpretive data was last revised on 2014 Test performed at [facility], [address] [facility], [place]., [address] Lupus anticoagulant, DRVVT, 50/50 ratio 1.32(H) 0.00 - 1.20 ratio HISTORICAL RESULTS Comment:Test performed at [facility], [address] [facility], [facility], [address] INR 1.21(H) 0.90 - 1.20 HISTORICAL RESULTS Comment: Interpretive Data Inpatient therapeutic ranges* Atrial fibrillation ?2.0-3.0 INR Venous thrombo-embolism ?2.0-3.0 INR Bioprosthetic heart valve ?* Mechanical heart valve, bileaflet or tilting disk,aortic position ? 2.0-3.0 INR All other,or bileaflet or tilting disk, in mitral position ? 2.5-3.5 INR *See the pharmacy resource directory (PHRED) for an updated copy of the Tool Book at [email or web address] Current Interpretive Data was last revised 2011. Test performed at [facility], [address] [facility], [place]., [address] DRVVT 50:50 mix 42.90 seconds HIST ORICAL RESULTS Comment:Test performed at [facility], [address] [facility], [place]., [address] Plasma 02/08/2015 7:03 PM CDT us Historical Provider LAB BLOOD ORDERABLES Catina aburto Result HISTORICAL RESULTS * Plasma homocysteine (02/08/2015 7:03 PM CDT) [facility] Signature Homocysteine 7 <=13 (Fasting) mcmol/L HISTORICAL RESULTS Comment: Test Performed by: [facility] [address] [place] [address] Water Purifier: Alfie Rosa II, M.D., Ph.D. Plasma 02/08/2015 7:03 PM CDT Historical Provider LAB BLOOD ORDERABLES Catina l Result Performing Organization Address [facility] [place]/[facility] de Phone Number HISTORICAL RESULTS * Serum antinuclear ab (NEGRITA) (02/08/2015 7:03 PM CDT) [facility] NEGRITA, qual Negative Negative HISTORICAL RESULTS Comment:Test performed at [facility], [address] [place] [address], [id number] Serum 02/08/2015 7:03 PM CDT Historical Provider LAB BLOOD ORDERABLES Catina l Result Performing Organization Address [facility] de Phone Number HISTORICAL RESULTS * Plasma antithrombin III activity (02/08/2015 7:03 PM CDT) [facility] Antithrombin III 113 80 - 120 % normal HISTORICAL RESULTS Comment:Test performed at [facility], [address] [place] [address], [id number] Plasma 02/08/2015 7:03 PM CDT Historical Provider LAB BLOOD ORDERABLES Catina l Result Performing Organization Address [facility] de Phone Number HISTORICAL RESULTS * Serum anticardiolipin ab, IgG, IgM (02/08/2015 7:03 PM CDT) [facility] Cardiolipin, IgG <4.0 <10.0 (Negative) GPL U/ml HISTORICAL RESULTS Comment: Test Performed by: [facility] [address] [place] [address] Water Purifier: Alfie Rosa II, M.D., Ph.D. Cardiolipin, IgM <4.0 <10.0 (Negative) MPL U/ml HISTORICAL RESULTS Serum 02/08/2015 7:03 PM CDT Historical Provider MD LAB BLOOD ORDERABLES Catina l Result Performing Organization Address [facility] [facility] Co de Phone Number HISTORICAL RESULTS * (ABNORMAL) Plasma fibrinogen (02/08/2015 7:03 PM CDT) Pathologist [facility] Fibrinogen 699(H) 196 - 513 mg/dl HISTORICAL RESULTS Plasma 02/08/2015 7:03 PM CDT Historical Provider LAB BLOOD ORDERABLES Catina l Result Performing Organization Address [facility] [place]/[facility] Co de Phone Number HISTORICAL RESULTS * Serum protein S activity (02/08/2015 7:03 PM CDT) Pathologist [facility] Protein S 66 55.0 - 123.0 % HISTORICAL RESULTS Comment:Test performed at [facility], [address] [place] [address], [address] Serum 02/08/2015 7:03 PM CDT Historical Provider MD LAB BLOOD ORDERABLES Catina l Result Performing Organization Address [facility] [place]/[facility] de Phone Number HISTORICAL RESULTS * Blood factor v leiden mutation (02/08/2015 7:03 PM CDT) Factor V Leiden Negative Negative HIST ORICAL RESULTS Factor V Leiden, comment See Comment HISTORICAL RESULTS Comment: This individual DOES NOT have the factor V Leiden (R506Q) mutation. Although the factor V Leiden mutation is absent, the individual may have other genetic and environmental risk factors for thrombosis. If clinically indicated, suggest Coagulation Consultation 81794 (Thrombophilia Profile) to complete the evaluation for an inherited or acquired thrombosing disorder (i.e., thrombophilia). ADDITIONAL INFORMATION This test is a direct mutation analysis using PCR amplification, signal generation and release by cleavage of sequence specific alleles ([employer], [place], [place], [place]). Referral specimen, review Jocelyn Perkins M.D. HISTORICAL RESULTS Comment: Test Performed by: [facility] [place] [address] Water Purifier: Alfie Rosa II, M.D., Ph.D. Blood specimen (specimen) 02/08/2015 7:03 PM CDT Historical Provider LAB BLOOD ORDERABLES Catina l Result Performing Organization Address [facility] [place]/[facility] de Phone Number HISTORICAL RESULTS * Blood prothrombin gene [id number] mutation detection (02/08/2015 7:03 PM CDT) Prothrombin A gene mutation Negative Negative HISTORICAL RESULTS Prothrombin A gene mutation, interp See Comment HISTORICAL RESULTS Comment: This individual DOES NOT have the Prothrombin [id number] mutation. Although the Prothrombin [id number] mutation is absent, the individual may have other genetic and environmental risk factors for thrombosis. ??If clinically indicated, suggest Coagulation Consultation 77475 (Thrombophilia Profile) to complete the evaluation for an inherited or acquired thrombosing disorder (i.e., thrombophilia). Consider genetic consultation and counseling of potentially affected family members regarding laboratory testing. ADDITIONAL INFORMATION This test is a direct mutation analysis using PCR amplification, signal generation and release by cleavage of sequence specific alleles ([employer], [place], [place], [place]). Referral specimen, review SEE BELOW HISTORICAL RESULTS Comment: RESULT: Jaden Leija M.D. Test Performed by: [facility] - [address] [address] Water Purifier: Alfie Rosa II, M.D., Ph.D. Blood specimen (specimen) 02/08/2015 7:03 PM CDT us Historical Provider LAB BLOOD ORDERABLES Catina l Result Performing Organization Address [facility] [place]/[facility] Co de Phone Number HISTORICAL RESULTS * RENAL COMPUTED TOMOGRAPHY (CT) WITHOUT CONTRAST, STONE PROTOCOL (02/08/2015 4:10 PM CDT) Anatomical Region Laterality Modality N/A Computed Tomogra phy 02/08/2015 4:10 PM CDT Narrative 02/09/2015 12:[address] [place] ??[id number] ??Acc#: ??[id number] DATE OF EXAM: ??Feb 08 2015 CLINICAL HISTORY: 29 year old female who presents with severe left sided neck, rib and flank pain. RESULT: PROTOCOL: ??Helically acquired axial images were obtained from the saman hepatis to the pubic symphysis without contrast according to renal stone protocol. FINDINGS: ??There is no evidence of urinary tract calculus or dilatation. Urinary bladder is unremarkable. The unenhanced solid parenchymal organs are unremarkable. ??The patient is status post cholecystectomy. ??The small and large bowel are nondilated. There is no evidence of ascites or retroperitoneal lymphadenopathy. ??The pelvic contents are normal. IMPRESSION: NORMAL UNENHANCED CT OF THE ABDOMEN AND PELVIS. ??NO EVIDENCE OF URINARY TRACT CALCULUS OR OBSTRUCTION. Results were called to Dr. Adballa at 1630 hours. Interpreting Physician: ??DR SAE MARTINEZ M.D. ??Read on: ??Feb 09 2015 8:01A Transcribed by: ??jorge ??On: Feb 09 2015 ??8:01A Approved Electronically by: ??MICHELLE Perez, DR QUEVEDO ??on: ??Feb 09 2015 12:22P Attending: ??ENRICO HARPER Requesting: ??EDOUARD ABDALLA Requesting Fax: ??-- Attending Fax: ??-- Attending ID: ??[id number] Requesting ID: ??[id number] Report To 1 ID: ??[id number] Report To 1 Name: ??ENRICO HARPER Report To 1 FAX: ??-- NextGen Order #: Procedure Note Provider, MD Dane - 12/05/[place] [id number] Acc#: [id number] DATE OF EXAM: Feb 08 2015 CLINICAL HISTORY: 29 year old female who presents with severe left sided neck, rib andflank pain. RESULT: PROTOCOL: Helically acquired axial images were obtained from the portahepatis to the pubic symphysis without contrast according to renal stoneprotocol. FINDINGS: There is no evidence of urinary tract calculus or dilatation.Urinary bladder is unremarkable. The unenhanced solid parenchymal organsare unremarkable. The patient is status post cholecystectomy. The smalland large bowel are nondilated. There is no evidence of ascites orretroperitoneal lymphadenopathy. The pelvic contents are normal. IMPRESSION: NORMAL UNENHANCED CT OF THE ABDOMEN AND PELVIS. NO EVIDENCE OF URINARYTRACT CALCULUS OR OBSTRUCTION. Results were called to Dr. Abdalla at 1630hours. Interpreting Physician: DR SAE MARTINEZ M.D. Read on: Feb 09 20158:01A Transcribed by: jorge On: Feb 09 2015 8:01A Approved Electronically by: MICHELLE Perez, DR QUEVEDO on: Feb 09 201512:22P Attending: ENRICO HARPER Requesting: EDOUARD ABDALLA Requesting Fax: -- Attending Fax: -- Attending ID: [id number] Requesting ID: [id number] Report To 1 ID: [id number] Report To 1 Name: ENRICO HARPER Report To 1 FAX: -- NextGen Order #: us Historical Provider IMMarty CT PROCEDURES Final R esult * CT Chest W Contrast (02/08/2015 4:10 PM CDT) Anatomical Region Laterality Modality Body N/A Computed Tomogra phy 02/08/2015 4:10 PM CDT Narrative 02/09/2015 12:[address] Chest PE W ?[id number] ??Acc#: ??[id number] DATE OF EXAM: ??Feb 08 2015 CLINICAL HISTORY: 29 year old female who presents with severe left sided neck, rib and flank pain. RESULT: PROTOCOL: ??Helically acquired axial images were obtained from the lung apices to the base of the diaphragm following the rapid infusion of 120 ml Optiray 350. ??Image data was displayed using axial and coronal reformations. FINDINGS: ??Severe respiratory motion artifact degrades image quality significantly. ??This is exacerbated by extremely large body habitus. There appears to be significant pulmonary embolism within the left lower lobe pulmonary arteries. ??The right lower lobe pulmonary arteries are not well evaluated. ??The upper lobe arteries appear normal. ??The mediastinal arterial structures appear unremarkable. ??There is no evidence of mass or lymphadenopathy. Images of the lung parenchyma demonstrate coarse bibasilar infiltrate and atelectasis, left greater than right. ??The configuration of the left basilar infiltrate is somewhat atypical for evolving pulmonary infarction although this is not excluded. ??There is no evidence of pleural effusion. IMPRESSION: 1. HIGHLY DEGRADED IMAGE QUALITY DUE TO MORBID OBESITY AND RESPIRATORY MOTION ARTIFACT. 2. SIGNIFICANT PULMONARY EMBOLISM WITHIN THE LEFT LOWER LOBE PULMONARY ARTERIES. 3. BIBASILAR LEFT GREATER THAN RIGHT COARSE PATCHY INFILTRATE. ??THE APPEARANCE OF THE INFILTRATE IS SOMEWHAT ATYPICAL FOR PULMONARY INFARCTION ALTHOUGH THIS IS NOT EXCLUDED. ??CLINICAL CORRELATION IS RECOMMENDED. Results were called to Dr. Abdalla at 1630 hours. Interpreting Physician: ??DR SAE MARTINEZ M.D. ??Read on: ??Feb 08 2015 4:32P Transcribed by: ??valeif ??On: Feb 09 2015 ??7:57A Approved Electronically by: ??MICHELLE Perez, DR QUEVEDO ??on: ??Feb 09 2015 12:22P Attending: ??ENRICO HARPER Requesting: ??EDOUARD ABDALLA Requesting Fax: ??-- Attending Fax: ??-- Attending ID: ??[id number] Requesting ID: ??[id number] Report To 1 ID: ??[id number] Report To 1 Name: ??ENRICO HARPER Report To 1 FAX: ??-- NextGen Order #: Procedure Note Provider, MD Dane - 12/05/2016 CT [place] W [id number] Acc#: [id number] DATE OF EXAM: Feb 08 2015 CLINICAL HISTORY: 29 year old female who presents with severe left sided neck, rib andflank pain. RESULT: PROTOCOL: Helically acquired axial images were obtained from the lungapices to the base of the diaphragm following the rapid infusion of 120 mlOptiray 350. Image data was displayed using axial and coronalreformations. FINDINGS: Severe respiratory motion artifact degrades image qualitysignificantly. This is exacerbated by extremely large body habitus. Thereappears to be significant pulmonary embolism within the left lower lobepulmonary arteries. The right lower lobe pulmonary arteries are not wellevaluated. The upper lobe arteries appear normal. The mediastinalarterial structures appear unremarkable. There is no evidence of mass orlymphadenopathy. Images of the lung parenchyma demonstrate coarsebibasilar infiltrate and atelectasis, left greater than right. Theconfiguration of the left basilar infiltrate is somewhat atypical forevolving pulmonary infarction although this is not excluded. There is noevidence of pleural effusion. IMPRESSION: 1. HIGHLY DEGRADED IMAGE QUALITY DUE TO MORBID OBESITY AND RESPIRATORYMOTION ARTIFACT. 2. SIGNIFICANT PULMONARY EMBOLISM WITHIN THE LEFT LOWER LOBE PULMONARYARTERIES. 3. BIBASILAR LEFT GREATER THAN RIGHT COARSE PATCHY INFILTRATE. THEAPPEARANCE OF THE INFILTRATE IS SOMEWHAT ATYPICAL FOR PULMONARY INFARCTIONALTHOUGH THIS IS NOT EXCLUDED. CLINICAL CORRELATION IS RECOMMENDED.Results were called to Dr. Abdalla at 1630 hours. Interpreting Physician: DR SAE MARTINEZ M.D. Read on: Feb 08 20154:32P Transcribed by: jorge On: Feb 09 2015 7:57A Approved Electronically by: MICHELLE Perez, DR QUEVEDO on: Feb 09 201512:22P Attending: ENRICO HARPER Requesting: EDOUARD ABDALLA Requesting Fax: -- Attending Fax: -- Attending ID: [id number] Requesting ID: [id number] Report To 1 ID: [id number] Report To 1 Name: ENRICO HARPER Report To 1 FAX: -- NextGen Order #: us Historical Provider MD WALKER CT PROCEDURES Final R esult * XR Chest Pa Lateral 2 Vw (02/08/2015 2:54 PM CDT) Anatomical Region Laterality Modality Body, Chest N/A Radiographic Allison ging 02/08/2015 2:54 PM CDT Narrative 02/09/2015 12:23 PM CDT XR Chest 2 Views ?[id number] ??Acc#: ??[id number] DATE OF EXAM: ??Feb 08 2015 CLINICAL HISTORY: Chest pain and shortness of breath. RESULT: Two views of the chest demonstrate left basilar infiltrate/atelectasis. Correlate with CT findings. ??Minimal right basilar atelectasis is seen. The heart size and pulmonary vascularity appear normal. IMPRESSION: 1. LEFT GREATER THAN RIGHT LOWER LOBE INFILTRATE/ATELECTASIS. ??CORRELATE WITH CT FINDINGS. 2. DIMINISHED LUNG VOLUMES. Interpreting Physician: ??DR SAE MARTINEZ M.D. ??Read on: ??Feb 09 2015 10:53A Transcribed by: ??jorge ??On: Feb 09 2015 12:03P Approved Electronically by: ??MICHELLE Perez, DR QUEVEDO ??on: ??Feb 09 2015 12:22P Attending: ??ENRICO HARPER Requesting: ??EDOUARD ABDALLA Requesting Fax: ??-- Attending Fax: ??-- Attending ID: ??[id number] Requesting ID: ??[id number] Report To 1 ID: ??[id number] Report To 1 Name: ??ENRICO HARPER Report To 1 FAX: ??-- NextGen Order #: Procedure Note Provider, MD Dane - 12/05/2016 XR Chest 2 Views [id number] Acc#: [id number] DATE OF EXAM: Feb 08 2015 CLINICAL HISTORY: Chest pain and shortness of breath. RESULT: Two views of the chest demonstrate left basilar infiltrate/atelectasis.Correlate with CT findings. Minimal right basilar atelectasis is seen.The heart size and pulmonary vascularity appear normal. IMPRESSION: 1. LEFT GREATER THAN RIGHT LOWER LOBE INFILTRATE/ATELECTASIS. CORRELATEWITH CT FINDINGS. 2. DIMINISHED LUNG VOLUMES. Interpreting Physician: DR SAE MARTINEZ M.D. Read on: Feb 09 201510:53A Transcribed by: jorge On: Feb 09 2015 12:03P Approved Electronically by: DR SAE MARTINEZ M.D. on: Feb 09 201512:22P Attending: ENRICO HARPER Requesting: EDOUARD ABDALLA Requesting Fax: -- Attending Fax: -- Attending ID: [id number] Requesting ID: [id number] Report To 1 ID: [id number] Report To 1 Name: ENRICO HARPER Report To 1 FAX: -- NextGen Order #: us Historical Provider MD WALKER XR PROCEDURES Final R esult * Serum chorionic gonadotropin (HCG), quantitative (02/08/2015 2:49 PM CDT) HCG, quant <5.0 0.0 - 5.0 IUnits/L HISTORICAL RESULTS Comment: Interpretive Data Negative: ? <5 mIU/mL ? Borderline: ??6-25 mIU/mL Positive: ? >25 mIU/mL Approx Gest Age ? Approx HCG Concentration 3 - 4 Weeks ?9 - 130 4 - 5 Weeks ?75 - 2600 5 - 6 Weeks ?850 - 20,800 6 - 7 Weeks ?4000 - 100,200 7 - 12 Weeks ? 68436 - 289,000 16 - 29 Weeks ? 49224 - 137,000 29 - 41 Weeks ? 900 - 60,000 Current interpretive data was last revised on 2015 Serum 02/08/2015 2:49 PM CDT us Historical Provider MD LAB BLOOD ORDERABLES Catina aburto Result HISTORICAL RESULTS * (ABNORMAL) Plasma comprehensive metabolic panel (02/08/2015 2:49 PM CDT) Sodium 138 135 - 145 mmol/L HISTORICAL RESULTS K, pl 3.7 3.5 - 5.1 mmol/L HISTORICAL RESULTS Chloride 102 97 - 110 mmol/L HISTORICAL RESULTS CO2 22 22 - 32 mmol/L HISTORICAL RESULTS A. gap 18(H) 8 - 16 mmol/L HISTORICAL RESULTS Glucose 102 70 - 199 mg/dl HISTORICAL RESULTS Comment: Interpretive Data Note:The glucose is assumed non fasting Fastin-99 mg/dL Random: ??70-199 mg/dL Either a fasting glucose > 126 mg/dL or a random glucose > 200 mg/dL plus symptoms is diagnostic of diabetes when confirmed on another day. Fasting values > 100 mg/dL but < 125 mg/dL are diagnostic of impaired fasting glucose. Current interpretive data was last revised on 2014. BUN 8.7 8.0 - 25.0 mg/dl HISTORICAL RESULTS Creatinine 0.75 0.60 - 1.10 mg/dl HISTORICAL RESULTS BUN/creat ratio 12 10 - 20 HIST ORICAL RESULTS Calcium 9.6 8.6 - 10.2 mg/dl HISTORICAL RESULTS Protein, sr 7.9 6.0 - 8.4 g/dl HISTORICAL RESULTS Alb 4.3 3.6 - 5.0 g/dl HISTORICAL RESULTS Alb/glob ratio 1.2 1.1 - 1.8 ratio HISTORICAL RESULTS Alk phos 77 40 - 130 Units/L HISTORICAL RESULTS ALT 20 5 - 45 Units/L HISTORICAL RESULTS AST 12 10 - 40 Units/L HISTORICAL RESULTS Bilirubin 0.5 <=1.2 mg/dl HISTORICAL RESULTS Plasma 02/08/2015 2:49 PM CDT Result [facility] Historical Provider MD LAB BLOOD ORDERABLES Catina l Result Performing Organization Address [facility] [place]/[facility] de Phone Number HISTORICAL RESULTS * Plasma troponin-T (02/08/2015 2:49 PM CDT) Pathologist [facility] Troponin T <0.01 0.00 - 0.06 ng/ml HISTORICAL RESULTS Comment: Interpretive Data Troponin table: ? Negative ? 0.00-0.06 ng/ml ? Indeterminate ?0.07-0.10 ng/ml ? Consistent with Myocardial Injury ?Greater than 0.10 ng/ml ?? Current interpretive data was last revised on 2014 Plasma 02/08/2015 2:49 PM CDT Historical Provider MD LAB BLOOD ORDERABLES Catina l Result Performing Organization Address [facility] [place]/[facility] de Phone Number HISTORICAL RESULTS * Serum magnesium (02/08/2015 2:49 PM CDT) Magnesium 2.1 1.6 - 2.4 mg/dl HISTORICAL RESULTS Serum 02/08/2015 2:49 PM CDT Historical Provider MD LAB BLOOD ORDERABLES Catina l Result Performing Organization Address [facility] [place]/[facility] Co de Phone Number HISTORICAL RESULTS * Blood partial thromboplastin time (PTT) (02/08/2015 2:49 PM CDT) PTT 25.1 <=36.0 seconds HISTORICAL RESULTS Blood specimen (specimen) 02/08/2015 2:49 PM CDT Historical Provider LAB BLOOD ORDERABLES Catina l Result Performing Organization Address [facility] [place]/[facility] de Phone Number HISTORICAL RESULTS * Blood prothrombin time (PT) (02/08/2015 2:49 PM CDT) Prothrombin time (PT) 12.9 10.9 - 14.8 seconds HISTORICAL RESULTS INR 1.01 HISTORICAL RESULTS Comment: Interpretive Data Recommended ranges for protime INR: Note: The INR has been validated only for patients on stable oral anticoagulant therapy 2.0 - 3.0 ? Prophylaxis of venous thrombosis (High risk surgery) 2.0 - 3.0 ? Treatment of venous thrombosis 2.0 - 3.0 ? Treatment of pulmonary embolism 2.0 - 3.0 ? Prevention of systemic embolism ?Tissue heart valves ?AMI (to prevent systemic embolism)* ?Valvular heart disease; Atrial Fibrillation 2.5 - 3.5 ? Mechanical prosthetic valves (High risk) 2.0 - 3.0 ? Bileaflet mechanical valve in aortic position *If oral anticoagulant therapy is elected to prevent myocardial infarction, an INR of 2.5 to 3.5 is recommended, consistent with Food and Drug Administration recommendations. Current interpretive data was last revised on 2014. Blood specimen (specimen) 02/08/2015 2:49 PM CDT Historical Provider LAB BLOOD ORDERABLES Catina aburto Result Performing Organization Address City/[facility] Co de Phone Number HISTORICAL RESULTS * (ABNORMAL) Blood cell morphologic exam (02/08/2015 2:49 PM CDT) Neutrophils 69.8 44.0 - 80.0 % HISTORICAL RESULTS Immature granulocytes 0.3 0.0 - 1.0 % HISTORICAL RESULTS Lymphocytes 19.0 13.0 - 44.0 % HISTORICAL RESULTS Monos 10.0 2.0 - 11.0 % HISTORICAL RESULTS Eosinophils 0.6 0.0 - 6.0 % HISTORICAL RESULTS Basophils 0.3 0.0 - 3.0 % HISTORICAL RESULTS Neutrophils, abs 8.8(H) 1.6 - 7.0 K/cumm HISTORICAL RESULTS Immature granulocyte, abs 0.0(H) 0.0 - 0.0 K/cumm HISTORICAL RESULTS Lymphocytes, abs 2.4 0.5 - 4.3 K/cumm HISTORICAL RESULTS Monocytes, absolute 1.3(H) 0.1 - 1.0 K/cumm HISTORICAL RESULTS Eosinophils, abs 0.1 0.0 - 0.6 K/cumm HISTORICAL RESULTS Basophils, abs 0.0 0.0 - 0.3 K/cumm HISTORICAL RESULTS Blood specimen (specimen) 02/08/2015 2:49 PM CDT Historical Provider LAB BLOOD ORDERABLES Catina aburto Result Performing Organization Address City/State/[facility] Co de Phone Number HISTORICAL RESULTS * (ABNORMAL) Blood cell count (CBC), morphologic exam (02/08/2015 2:49 PM CDT) WBC 12.7(H) 3.8 - 9.8 K/cumm HISTORICAL RESULTS RBC 4.51 3.90 - 5.00 M/cumm HISTORICAL RESULTS Hgb 13.6 12.1 - 15.1 g/dl HISTORICAL RESULTS Hct 41.5 36.1 - 44.3 % HISTORICAL RESULTS MCV 92.0 80.0 - 100.0 fl HISTORICAL RESULTS MCH 30.2 26.7 - 33.7 pg HISTORICAL RESULTS MCHC 32.8 32.7 - 36.0 g/dl HISTORICAL RESULTS Rdw 12.2 11.5 - 14.6 % HISTORICAL RESULTS Platelets 215 140 - 440 K/cumm HISTORICAL RESULTS MPV 11.5 8.0 - 12.0 fl HISTORICAL RESULTS NRBC 0.0 0.0 - 0.0 % HISTORIC AL RESULTS NRBC, abs 0.00 0.00 - 0.00 K/cumm HISTORICAL RESULTS Blood specimen (specimen) 02/08/2015 2:49 PM CDT Historical Provider LAB BLOOD ORDERABLES Catina l Result Performing Organization Address [facility] [place]/[facility] de Phone Number HISTORICAL RESULTS * Serum estimated glomerular filtration rate (02/08/2015 2:49 PM CDT) eGFR >60 ml/min/1.7 3 m2 HISTORICAL RESULTS Comment: Interpretation of Estimated GFR (eGFR): Normal ?>/= 60 mL/min/1.73m2 Possible Chronic Kidney Disease ??15 - 59 mL/min/1.73m2 Possible Kidney Failure ?< 15 ??mL/min/1.73m2 If -British multiply value by 1.16. ??Estimated glomerular filtration rate is determined by the CKD-EPI equation recommended by the National Kidney Foundation (KDIGO 2012 Clinical Practice Guideline for the Evaluation and Management of Chronic Kidney Disease. ??Kidney Intnl Suppl Aug 2012;3:1). ??The CKD-EPI equation should not be used in acute renal failure or acute kidney injury and is not valid in children. Serum 02/08/2015 2:49 PM CDT Historical Provider LAB BLOOD ORDERABLES Catina l Result Performing Organization Address [facility] [place]/[facility] Co de Phone Number HISTORICAL RESULTS * (ABNORMAL) Blood D-dimer (02/08/2015 2:49 PM CDT) D-dimer 1.54(H) 0.00 - 0.50 mcg/ml HISTORICAL RESULTS Comment: Interpretive Data Units of Measure = mcg/mL FEU The D-Dimer result should not be used as the sole indicator to rule in or exclude a diagnosis of Pulmonary Embolism or Deep Vein Thrombosis. Current interpretive data was last revised on 2014. Blood specimen (specimen) 02/08/2015 2:49 PM CDT Historical Provider LAB BLOOD ORDERABLES Catina l Result HISTORICAL RESULTS * ELECTROCARDIOGRAPHY (ECG) (02/08/2015) Narrative 02/08/2015 Ordered by an unspecified provider. 

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
--- OUTSIDE RECORDS SUMMARY | 2024-07-17 01:25 | XMS_ITS | Encounter Summary ---
Author Organization [facility] Healthcare Address [address] [place] [address] Care Team Providers Care Renovator Machine Operator Name Role Phone Wesley Hardy MD Primary Care Provider [phone] Encounter Details Date Type Department Care Team (Late st Contact Info) Description 05/03/2017 10:15 AM CDT [address] Polycystic ovarian syndrome Social History Tobacco Use Types Packs/Day Years Used Date Smoking Tobacco: Former Smokeless Tobacco: Never Alcohol Use Standard Drinks/Week Comments Yes 0 (1 standard drink = 0.6 oz pur e alcohol) Comments Unknown Sex and Gender Information Value Date Recorded Sex Assigned at Not on file 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 1 - 9 ?? mIU/ml ??Mid-Follicular ?2 - 11 ??mIU/ml ??Mid-Cycle ?19 - 100 mIU/ml ??Mid-Luteal ?1 - 13 ??mIU/ml ??Post Menopausal ??11 - 60 ??mIU/ml -- Male ?1 - 9 ?? mIU/ml Current interpretive data was last revised 2016 Blood specimen (specimen) 05/03/2017 10:11 AM CDT 05/03/2017 5:07 PM CDT us Dyana Goodwin MD LAB BLOOD ORDERABLES Final Res ult Performing Organization Address City/State/[facility] Co de Phone Number [facility] [address] [address] Department [place] [address] documented in this encounter Visit Diagnoses Diagnosis Polycystic ovarian syndrome Polycystic ovaries documented in this encounter Care Teams Renovator Machine Operator Relationship Specialty Start Date End Date Wesley Hardy MD [address] [place] [address] PCP - General Infectious Diseases 04/20/17 documented as of this encounter
--- OUTSIDE RECORDS SUMMARY | 2024-07-17 01:25 | XMS_ITS | Encounter Summary ---
Author Organization [facility] Address [address] [place] [address] Care Team Providers Care Header Set Up Operator Name Role Phone Wesley Hardy MD Primary Care Provider [phone] Reason for Visit * Reason Comments Polycystic Ovary Syndrome Encounter Details Date Type Department Care Team (Late st Contact Info) Description 04/29/2017 2:00 PM CDT Office Visit [facility] [address] [place] [id number] Dyana Goodwin MD [address] [place] [address] [address] [place] [address] Polycystic ovarian syndrome (Primary Dx) Social History Tobacco Use Types Packs/Day Years Used Date Smoking Tobacco: Former Smokeless Tobacco: Never Alcohol Use Standard Drinks/Week Comments Yes 0 (1 standard drink = 0.6 oz pur e alcohol) Comments Unknown Sex and Gender Information Value Date Recorded Sex Assigned at Not on file Legal Sex Female 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 female. Chief Complaint Polycystic Ovary Syndrome Patient referred for evaluation of possible PCOS. She will be seeing a Tattooer next week. Patient reports problem with menstruation for many years. She had to take Estrogen or BCP to get a period, but she only gets 2-3 /year. 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 She reports some hair loss in the last 2-3 month,, but chronic excess hair on the chin and upper lip for years. She has to remove everyday. No breast discharge. She lost 20lbs in the last few month after starting a new job with increased activity. Other This is a chronic problem. Pertinent negatives include no chest pain, coughing, diaphoresis, fatigue, myalgias, rash, urinary symptoms, visual change or weakness. Review of Systems Constitutional: Negative for diaphoresis, fatigue and unexpected weight change. HENT: Negative for facial swelling, trouble swallowing and voice change. Respiratory: Negative for cough and shortness of breath. Cardiovascular: Negative for chest pain, palpitations and leg swelling. Gastrointestinal: Positive for diarrhea. Negative for constipation. Endocrine: Negative for cold intolerance and heat intolerance. No goiter or neck swelling Genitourinary: Positive for menstrual problem. Musculoskeletal: Negative for back pain and myalgias. Skin: Negative for rash. Neurological: Negative for dizziness, tremors and weakness. Psychiatric/Behavioral: Positive for dysphoric mood. Physical Exam Constitutional: She appears well-developed and well-nourished. Neck: No tracheal deviation present. No thyroid mass and no thyromegaly present. Cardiovascular: Normal rate, regular rhythm and normal heart sounds. Pulmonary/Chest: Breath sounds normal. She has no wheezes. Abdominal: Soft. Bowel sounds are normal. She exhibits no distension. Musculoskeletal: She exhibits no edema. Lymphadenopathy: She has no cervical adenopathy. Skin: No rash noted. No erythema. No purple striae. Or acne Vitals reviewed. Assessment/Plan Diagnoses and all orders for this visit: 1. Polycystic ovarian syndrome (Primary) - TSH; Future - T4, free; Future - LH; Future - Follicle stimulating hormone; Future - Prolactin; Future - Testosterone; Future - DHEA-sulfate; Future 31 years old female, with depression, IBS and history of PE, who had possible diagnosis of PCOS with oligomenorrhea/ amenorrhea, and infertility. She is not on BCP due to blood clots. Plan: We will do labs to evaluate PCOS. Patient asked to work on weight loss with diet and exercise. She will probably need treatment for her hyperlipidemia. Follow up and further recommendation will be decided after we obtain above test results. documented in this encounter Plan of Treatment Scheduled Orders Name Type Priority Associated Diagnoses Orde r Schedule TSH Lab Routine Polycystic ovarian syndrome Expected: 04/30/2017, Expires: 04/29/2018 T4, free Lab Routine Polycystic ovarian syndrome Expected: 04/30/2017, Expires: 04/29/2018 Follicle stimulating hormone Lab Routine Polycystic ovarian syndrome Expected: 04/30/2017, Expires: 04/29/2018 Prolactin Lab Routine Polycystic ovarian syndrome Expected: 04/30/2017, Expires: 04/29/2018 Testosterone Lab Routine Polycystic ovarian syndrome Expected: 04/30/2017, Expires: 04/29/2018 DHEA-sulfate Lab Routine Polycystic ovarian syndrome Expected: 04/30/2017, Expires: 04/29/2018 documented as of this encounter Results * LH (05/03/2017 10:11 [...] LAB BLOOD ORDERABLES Final Res ult [facility] [address] [address] Department [place] [address] documented in this encounter Visit Diagnoses Diagnosis Polycystic ovarian syndrome- Primary Polycystic ovaries documented in this encounter Care Teams Header Set Up Operator Relationship Specialty Start Date End Date Wesley Hardy MD [address] [place] [address] [place] [address] PCP - General Infectious Diseases 04/20/17 documented as of this encounter
--- OUTSIDE RECORDS SUMMARY | 2024-07-17 01:25 | XMS_ITS | Encounter Summary ---
Author Organization [facility] Healthcare Address [address] [place] [address] Care Team Providers Care Postal Mail Carrier Name Role Phone Jaden Lam DO Primary Care Provider [phone] Encounter Details Date Type Department Care Team (Late st Contact Info) Description 10/31/2014 8:29 AM CDT Hospital Encounter [facility] Grover Chan MD [address] [place] [address] Calculus of ureter Social History Tobacco Use Types Packs/Day Years Used Date Smoking Tobacco: Never Assessed Alcohol Use Standard Drinks/Week Comments No 0 (1 standard drink = 0.6 oz pur e alcohol) Comments Unknown Sex and Gender Information Value Date Recorded Sex Assigned at Not on file 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 ??No evidence of hydronephrosis. THIS IS AN ELECTRONICALLY VERIFIED REPORT 10/31/2014 11:00 PM: ??Coy Avila M.D. Coy Avila M.D. JA:myra 09:33 AM 09:37 AM [facility] [EOD] Narrative 10/31/2014 11:04 PM CDT PROCEDURE: Renal Ultrasound HISTORY: History of left kidney stone. ??Evaluate for hydronephrosis TECHNIQUE: ??A renal ultrasound was performed. COMPARISON: ??CT dated September 06, 2014 MEASUREMENTS: Right renal length: ??12.4 cm Left renal length: ??12.1 cm RENAL FINDINGS: The kidneys are normal in size and echogenicity. There is no hydronephrosis. No shadowing stones are seen. BLADDER: The bladder is grossly unremarkable. Bilateral ureteral jets were identified. Procedure Note Provider, MD Daen - 12/16/2020 PROCEDURE: Renal Ultrasound HISTORY: History of left kidney stone. Evaluate for hydronephrosis TECHNIQUE: A renal ultrasound was performed. COMPARISON: CT dated September 06, 2014 MEASUREMENTS: Right renal length: 12.4 cm Left renal length: 12.1 cm RENAL FINDINGS: The kidneys are normal in size and echogenicity. There isno hydronephrosis. No shadowing stones are seen. BLADDER: The bladder is grossly unremarkable. Bilateral ureteral jets were identified. IMPRESSION: Unremarkable 2-D grayscale ultrasound of the kidneys. No evidence of hydronephrosis. THIS IS AN ELECTRONICALLY VERIFIED REPORT 10/31/2014 11:00 PM: Coy Avila M.D. Coy Avila M.D. JA:myra 09:33 AM 09:37 AM [facility] [EOD] Grover Chan MD IMG US PROCEDURES Final R esult documented in this encounter Visit Diagnoses Diagnosis Calculus of ureter documented in this encounter Care Teams Postal Mail Carrier Relationship Specialty Start Date End Date Jaden Lam DO [address] [place] [address] PCP - General 07/10/08 04/19/17 documented as of this encounter
--- OUTSIDE RECORDS SUMMARY | 2024-07-17 01:25 | XMS_ITS | Encounter Summary ---
Author Organization [facility] Healthcare Address [address] [place] [address] Care Team Providers Care Carbon Furnace Operator Helper Name Role Phone Jdaen Lam DO Primary Care Provider [phone] Encounter Details Date Type Department Care Team (Late st Contact Info) Description 02/08/2015 7:03 PM CDT - 02/08/2015 11:59 PM CDT Hospital Encounter [facility] Social History Tobacco Use Types Packs/Day Years Used Date Smoking Tobacco: Never Assessed Alcohol Use Standard Drinks/Week Comments No 0 (1 standard drink = 0.6 oz pur e alcohol) Comments Unknown Sex and Gender Information Value Date Recorded Sex Assigned at Not on file 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
--- OUTSIDE RECORDS SUMMARY | 2024-07-17 01:25 | XMS_ITS | Encounter Summary ---
Author Organization [facility] Healthcare Address [address] [place] [address] Care Team Providers Care Grinder Setup Operator Name Role Phone Jaden Lam DO Primary Care Provider [phone] Encounter Details Date Type Department Care Team (Late st Contact Info) Description 02/17/2015 6:47 AM CDT - 02/17/2015 11:59 PM CDT Hospital Encounter [facility] Zeus Tristan MD [address] [address] Other pulmonary embolism and infarction (CMS/HCC) Social History Tobacco Use Types Packs/Day Years Used Date Smoking Tobacco: Never Assessed Alcohol Use Standard Drinks/Week Comments No 0 (1 standard drink = 0.6 oz pur e alcohol) Comments Unknown Sex and Gender Information Value Date Recorded Sex Assigned at Not on file 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 us Historical Provider LAB BLOOD ORDERABLES Catina l Result * (ABNORMAL) Blood prothrombin time (PT) (02/17/2015 6:53 AM CDT) Prothrombin time (PT) 34.4(H) 10.9 - 14.8 seconds HISTORICAL RESULTS INR 3.58 HISTORICAL RESULTS Comment: Interpretive Data Recommended ranges [...] last revised on 2014. Blood specimen (specimen) 02/17/2015 6:53 AM CDT us Historical Provider LAB BLOOD ORDERABLES Catina aburto Result HISTORICAL RESULTS documented in this encounter Visit Diagnoses Diagnosis Other pulmonary embolism and infarction documented in this encounter Care Teams Grinder Setup Operator Relationship Specialty Start Date End Date Jaden Lam DO [address] [place] [address] PCP - General 07/10/08 04/19/17 documented as of this encounter
--- OUTSIDE RECORDS SUMMARY | 2024-07-17 01:25 | XMS_ITS | Encounter Summary ---
Author Organization [facility] Healthcare Address [address] [place] [address] Care Team Providers Care Lead Massage Therapist Name Role Phone KielJaden richardsMakeda BLANCHARD Primary Care Provider [phone] Encounter Details Date Type Department Care Team (Latest Contact Info) Description 09/04/2014 6:15 PM INTEGRITY ENGINEER Hospital Encounter [facility] OP Kayce Lee DO [address] [place] [address] Calculus of kidney Social History Tobacco Use Types Packs/Day Years Used Date Smoking Tobacco: Never Assessed Alcohol Use Standard Drinks/Week Comments No 0 (1 standard drink = 0.6 oz pur e alcohol) Comments Unknown Sex and Gender Information Value Date Recorded Sex Assigned at Not on file Legal Sex Female 9:08 PM INTEGRITY ENGINEER Gender Identity Not on file Sexual Orientation Not on file documented as of this encounter Plan of Treatment Not on file documented as of this encounter Procedures Procedure Name Priority Date/Time Associated Diagnosis Comments XR ABDOMEN AP 1 VIEW Routine 09/04/2014 6:17 PM INTEGRITY ENGINEER documented in this encounter Results * XR Abdomen Ap 1 Vw (09/04/2014 6:17 PM INTEGRITY ENGINEER) Anatomical Region Laterality Modality Body, Abdomen N/A Radiographic Allison ging 09/04/2014 6:17 PM INTEGRITY ENGINEER Impressions 09/04/2014 6:43 PM INTEGRITY ENGINEER ??Nonspecific bowel gas pattern. THIS IS AN ELECTRONICALLY VERIFIED REPORT 09/04/2014 6:40 PM: ??Jeremy Shah M.D. Jeremy Shah M.D. NC:yohannes 06:40 PM 06:40 PM BM [EOD] Narrative 09/04/2014 6:43 PM INTEGRITY ENGINEER EXAMINATION: ??Abdomen HISTORY: ??Left flank pain COMPARISON: ??None available TECHNIQUE: ??Two views FINDINGS: ??Status post cholecystectomy. ??No abnormal calcifications are present. No organomegaly. No free air or bowel obstruction. ??Nonspecific bowel gas pattern. Procedure Note Provider, MD Dane - 12/16/2020 EXAMINATION: Abdomen HISTORY: Left flank pain COMPARISON: None available TECHNIQUE: Two views FINDINGS: Status post cholecystectomy. No abnormal calcifications are present. No organomegaly. No free air or bowel obstruction. Nonspecific bowel gas pattern. IMPRESSION: Nonspecific bowel gas pattern. THIS IS AN ELECTRONICALLY VERIFIED REPORT 09/04/2014 6:40 PM: Jeremy Shah M.D. Jeremy Shah M.D. NC:yohannes 06:40 PM 06:40 PM [facility] [EOD] Kayce Lee DO IMG XR PROCEDURES Final Re sult documented in this encounter Visit Diagnoses Diagnosis Calculus of kidney documented in this encounter Care Teams Lead Massage Therapist Relationship Specialty Start Date End Date Jaden Lam DO [address] [place] [address] PCP - General 07/10/08 04/19/17 documented as of this encounter
--- OUTSIDE RECORDS SUMMARY | 2024-07-17 01:25 | XMS_ITS | Encounter Summary ---
Author Organization [facility] Healthcare Address [address] [place] [address] Care Team Providers Care Oiler Bander Name Role Phone Jaden Lam DO Primary Care Provider Encounter Details Date Type Department Care Team (Latest Contact Info) Description 09/06/2014 7:24 PM CORRECTIVE THERAPY AIDE - 09/06/2014 10:38 PM CORRECTIVE THERAPY AIDE Hospital Encounter [facility] Adina Adair MD [address] [place] [address] Calculus of ureter; Tobacco use disorder Social History Tobacco Use Types Packs/Day Years Used Date Smoking Tobacco: Never Assessed Alcohol Use Standard Drinks/Week Comments No 0 (1 standard drink = 0.6 oz pur e alcohol) Comments Unknown Sex and Gender Information Value Date Recorded Sex Assigned at Not on file Legal Sex Female 9:08 PM CORRECTIVE THERAPY AIDE Gender Identity Not on file Sexual Orientation Not on file documented as of this encounter Last Filed Vital Signs Vital Sign Reading Time Taken Comments Blood Pressure 150/89 09/06/2014 7:39 PM CORRECTIVE THERAPY AIDE Pulse 94 09/06/2014 7:39 PM CORRECTIVE THERAPY AIDE Temperature 37.1 ??C (98.7 ??F) 09/06/2014 7:39 PM CS T Respiratory Rate - - Oxygen Saturation 98% 09/06/2014 7:39 PM CORRECTIVE THERAPY AIDE Inhaled Oxygen Concentration - - Weight 127 kg (280 lb) 09/06/2014 7:39 PM CORRECTIVE THERAPY AIDE Height 175.3 cm (5' 9 ) 09/06/2014 7:39 PM CORRECTIVE THERAPY AIDE Body Mass Index 41.35 09/06/2014 7:39 PM CORRECTIVE THERAPY AIDE documented in this encounter Plan of Treatment Not on file documented as of this encounter Procedures Procedure Name Priority Date/Time Associated Diagnosis Comments CBC WITH AUTO DIFFERENTIAL Routine 09/06/2014 9:04 PM CORRECTIVE THERAPY AIDE COMPREHENSIVE METABOLIC PANEL Routine 09/06/2014 9:04 PM CORRECTIVE THERAPY AIDE URINALYSIS AND REFLEX TO MICROSCOPIC AND CULTURE Routine 09/06/2014 7:[address] ABDOMEN PELVIS WO CONTRAST Routine 09/06/2014 12:00 AM CORRECTIVE THERAPY AIDE documented in this encounter Results * (ABNORMAL) Comprehensive metabolic panel (09/06/2014 9:04 PM CORRECTIVE THERAPY AIDE) Sodium 140 135 - 145 mmol/L 09/06/2014 9:40 PM [employer] HISTORICAL RESULTS Potassium 4.2 3.3 - 5.1 mmol/L 09/06/2014 9:40 PM [employer] HISTORICAL RESULTS Chloride 105 96 - 108 mmol/L 09/06/2014 9:40 PM [employer] HISTORICAL RESULTS Carbon Dioxide 22 22 - 32 mmol/L 09/06/2014 9:40 PM [employer] HISTORICAL RESULTS Anion Gap 13 7 - 16 09/06/2014 9:40 PM [employer] HISTORICAL RESULTS Glucose 132(H) 70 - 100 mg/dL 09/06/2014 9:40 PM [employer] HISTORICAL RESULTS Comment:As of July 03 14 new normal range in use. BUN 9 6 - 20 mg/dL 09/06/2014 9:40 PM [employer] HISTORICAL RESULTS Creatinine 0.7 0.5 - 1.1 mg/dL 09/06/2014 9:40 PM [employer] HISTORICAL RESULTS Kidney Disease Stage > 90 mL/MIN 09/06/2014 9:40 PM [employer] HISTORICAL RESULTS Comment: NOTE; ??The GFR is an estimated value using the creatinine, sex, age, and race of the patient. THE ESTIMATED GFR IS VALIDATED FOR AGES 18-70 YEARS STAGE ?mL/Min ?DESCRIPTION ??1 ?90 mL/min or more ?Normal or elevated GFR ??2 ? 60-89 mL/min ?Mildly decreased GFR ??3 ? 30-59 mL/min ?Moderately decreased GFR ??4 ? 15-29 mL/min ?Severely decreased GFR ??5 ? <15 mL/min ? Kidney failure or on dialysis @ Calcium 9.0 8.6 - 10.0 mg/dL Total Protein 7.3 6.4 - 8.3 g/dL Albumin 4.2 3.5 - 5.2 g/dL Globulin 3.1 2.3 - 3.5 gm/dL Albumin/Globulin Ratio 1.4 1.1 - 1.8 Total Bilirubin < 0.2 0.0 - 1.2 mg/dL AST 18 0 - 32 U/L ALT 28 0 - 33 U/L Alkaline Phosphatase 70 35 - 104 U/L 09/06/2014 9:04 PM CORRECTIVE THERAPY AIDE 09/06/2014 9:11 PM CORRECTIVE THERAPY AIDE Mayra [facility] HISTORICAL RESULTS - 09/06/2014 9:40 PM CORRECTIVE THERAPY AIDE Yesenia Adamesers LAB BLOOD ORDERABLES Catina l Result [facility] HISTORICAL RESULTS * (ABNORMAL) CBC with auto differential (09/06/2014 9:04 PM CORRECTIVE THERAPY AIDE) WBC 11.7(H) 4.6 - 10.2 x10 3/ul RBC 4.16 3.76 - 4.80 x10 6/ul Hemoglobin 13.0 11.0 - 15.0 g/dl Hct 37.1 33.0 - 43.0 % MCV 89.2 80.0 - 97.0 fl MCH 31.3(H) 27.0 - 31.2 pg 09/06/2014 9:14 PM [facility] MCHC 35.0 31.8 - 35.4 g/dl RDW 12.4 11.6 - 14.8 % Plt Count 230 124 - 400 x10 3/ul 09/06/2014 9:14 PM [facility]OR[facility] RESULTS MPV 10.9(H) 7.4 - 10.4 fl Differential Method AUTOMATED DIFF --------- -- Neut % 78.3 37.0 - 85.0 % Immature Gran % 0.3 0.0 - 3.0 % 09/06/2014 9:14 PM [facility] HISTOR[facility] RESULTS Lymph % 14.5 5.0 - 45.0 % 09/06/2014 9:14 PM [facility] HISTOR[facility] RESULTS [place] % 6.2 3.0 - 15.0 % 09/06/2014 9:14 PM [facility]OR[facility] RESULTS Eos % 0.4 0.0 - 7.0 % Baso % 0.3 0.0 - 2.0 % ABSOLUTE COUNTS ABSOLUTE COUNTS --------- -- Absolute Neuts (auto) 9.2(H) 1.7 - 8.7 x10 3/ul Immature Gran # 0.0 0.0 - 0.3 x10 3/ul Absolute Lymphs (auto) 1.7 0.2 - 4.6 x10 3/ul Absolute Monos (auto) 0.7 0.1 - 1.5 x10 3/ul Absolute Eos (auto) 0.1 0.0 - 0.7 x10 3/ul Absolute Basos (auto) 0.0 0.0 - 0.2 x10 3/ul 09/06/2014 9:04 PM CORRECTIVE THERAPY AIDE 09/06/2014 9:11 PM CORRECTIVE THERAPY AIDE Narrative [facility] HISTORICAL RESULTS - 09/06/2014 9:14 PM CORRECTIVE THERAPY AIDE Yesenia Adamesers LAB BLOOD ORDERABLES Catina l Result [facility] HISTORICAL RESULTS * (ABNORMAL) Urinalysis reflex to microscopic and culture (09/06/2014 7:50 PM CORRECTIVE THERAPY AIDE) Ur Collection Type CLEAN CATCH Ur Culture Indicated? C&S NOT INDICATED Urine Color YELLOW YELLOW Urine Clarity CLEAR CLEAR Urine Glucose (UA) NORMAL NORMAL mg/dL Urine Bilirubin NEGATIVE NEGATIVE mg/dl Urine Ketones NEGATIVE NEGATIVE mg/dL Ur Specific [place] 1.021 1.005 - 1.025 Urine Blood 1.0(H) NEGATIVE mg/dl Urine pH 5.5 5.0 - 8.0 Urine Protein 10(H) NEGATIVE mg/dL Urine Urobilinogen 2(H) NORMAL mg/dL Urine Nitrite NEGATIVE NEGATIVE Ur Leukocyte Esterase NEGATIVE NEGATIVE Lakhwinder/ul Ur Microscopic Review Indicated or Ordered Urine RBC 374 0 - 2 /HPF Urine WBC 6 0 - 2 /HPF Urine Mucus Rare /LPF Ur Squamous Epith Cells Rare /HPF 09/06/2014 7:50 PM CORRECTIVE THERAPY AIDE 09/06/2014 8:06 PM [facility] Narrative [facility] HISTORICAL RESULTS - 09/06/2014 8:23 PM CORRECTIVE THERAPY AIDE Collected By mr ?? 611 ?? Yesenia Fine LAB MICROBIOLOGY - GENERA L ORDERABLES Final Result [facility] HISTORICAL RESULTS * CT Abdomen Pelvis WO Contrast (09/06/2014 12:00 AM CORRECTIVE THERAPY AIDE) Anatomical Region Laterality Modality Body N/A Computed Tomogra phy 09/06/2014 Impressions 09/06/2014 8:56 PM CORRECTIVE THERAPY AIDE ??2-3 mm calculus at the left ureteral vesicle junction causing mild left hydronephrosis THIS IS AN ELECTRONICALLY VERIFIED REPORT 09/06/2014 8:52 PM: ??Alfie Rodrigues M.D., Ph.D. Alfie Rodrigues M.D., Ph.D. WM: 08:52 PM 08:52 PM [facility] [EOD] Narrative 09/06/2014 8:56 PM CORRECTIVE THERAPY AIDE EXAMINATION: ??CT scan of the abdomen pelvis noncontrast HISTORY: ??Left lower abdomen pain FINDINGS: ??There is a small calculus measuring approximate to 3 mm at the left ureteral vesicle junction. ??There is mild left hydronephrosis. Lung bases are clear. ??Heart size is normal. ??No pleural or pericardial fluid. The liver is unremarkable. ??Previous cholecystectomy. ??The spleen, pancreas and adrenals are normal. No other renal calculi are identified. ??The abdominal aorta is normal in caliber. ??There is no retroperitoneal adenopathy. ??Uterus adnexa are normal. Procedure Note Provider, MD Dane - 12/16/2020 EXAMINATION: CT scan of the abdomen pelvis noncontrast HISTORY: Left lower abdomen pain FINDINGS: There is a small calculus measuring approximate to 3 mm at theleft ureteral vesicle junction. There is mild left hydronephrosis. Lung bases are clear. Heart size is normal. No pleural or pericardialfluid. The liver is unremarkable. Previous cholecystectomy. The spleen,pancreas and adrenals are normal. No other renal calculi are identified. Theabdominal aorta is normal in caliber. There is no retroperitoneal adenopathy.Uterus adnexa are normal. IMPRESSION: 2-3 mm calculus at the left ureteral vesicle junction causing mild left hydronephrosis THIS IS AN ELECTRONICALLY VERIFIED REPORT 09/06/2014 8:52 PM: Alfie Rodrigues M.D., Ph.D. Alfie Rodrigues M.D., Ph.D. WM:wm 08:52 PM 08:52 PM [facility] [EOD] Yesenia Fine IM CT PROCEDURES Final R esult documented in this encounter Visit Diagnoses Diagnosis Calculus of ureter Tobacco use disorder documented in this encounter Care Teams Oiler Bander Relationship Specialty Start Date End Date Jaden Lam DO [address] [place] [address] PCP - General 07/10/08 04/19/17 documented as of this encounter
--- OUTSIDE RECORDS SUMMARY | 2024-07-17 01:25 | XMS_ITS | Encounter Summary ---
Author Organization [facility] Healthcare Address [address] [place] [id number] Care Team Providers Care Yeast Culture Operator Name Role Phone Wesley Hardy MD Primary Care Provider Encounter Details Date Type Department Care Team (Late st Contact Info) Description 05/03/2017 10:07 AM CDT - 05/03/2017 11:59 PM CDT Hospital Encounter [facility] Dyana Goodwin MD [address] [place] [address] [address] Discharge Disposition: Discharge to home or self care Social History Tobacco Use Types Packs/Day Years Used Date Smoking Tobacco: Former Smokeless Tobacco: Never Alcohol Use Standard Drinks/Week Comments Yes 0 (1 standard drink = 0.6 oz pur e alcohol) Comments Unknown Sex and Gender Information Value Date Recorded Sex Assigned at Not on file Legal Sex Female 9:08 PM [employer]IOR [employer] Gender Identity Not on file Sexual Orientation [...] Procedure Name Priority Date/Time Associated Diagnosis Comments PROLACTIN Routine 05/03/2017 10:11 AM CDT DHEA-SULFATE Routine 05/03/2017 10:11 AM CDT TSH Routine 05/03/2017 10:11 AM CDT T4, FREE Routine 05/03/2017 10:11 AM CDT TOTAL TESTOSTERONE Routine 05/03/2017 10 :11 AM CDT FOLLICLE STIMULATING HORMONE Routine 05/03/2017 10:11 AM CDT DISCHARGE LABORATORY CUMULATIVE REPORT 05/03/2017 12:00 AM CDT documented in this encounter Results * DHEA-sulfate (05/03/2017 10:11 AM CDT) DHEA-S 108 31 - 228 mcg/dL [facility] CORTEZ Comment: Test Performed by: [facility] [address] [place] [address] Blood specimen (specimen) 05/03/2017 10:11 AM CDT 05/03/2017 5:07 PM CDT Dyana Goodwin MD LAB BLOOD ORDERABLES Final Res ult [facility]ANNON [address] [address] Department [place] [address] * Follicle stimulating hormone (05/03/2017 10:11 AM CDT) FSH 5.8 mIUnits/mL [facility]ANNON CORTEZ Comment: Interpretive Data Reference Interval Female ??<10 years ? 1 - 19 ??mIU/ml ??Mid-Follicular ?4 - 9 ?? mIU/ml ??Mid-Cycle ? 4 - 23 ??mIU/ml ??Mid-Luteal ?2 - 5 ?? mIU/ml ??Post Menopausal ??16 - 114 mIU/ml -- Male ?1 - 19 ??mIU/ml Current interpretive data was last revised on 2016 Blood specimen (specimen) 05/03/2017 10:11 AM CDT 05/03/2017 10:11 AM CDT Dyana Goodwin MD LAB BLOOD ORDERABLES Final Res ult Performing Organization Address [facility] de Phone Number [facility] [id number] [place] [address] * Prolactin (05/03/2017 10:11 AM CDT) Prolactin 7 3 - 27 ng/mL [facility] Blood specimen (specimen) 05/03/2017 10:11 AM CDT 05/03/2017 10:11 AM CDT Result Melany Dyana Goodwin MD LAB BLOOD ORDERABLES Final Res ult Performing Organization Address [facility] de Phone Number [facility] [address] [place] [address] * T4, free (05/03/2017 10:11 AM CDT) Free T4 0.73 0.61 - 1.12 ng/dL BRANNON Comment: Interpretive Data Ingestion of high dose biotin may cause a false elevation with the Free T4 assay. Contact laboratory for further information. Current interpretive data was last revised on 2017. Blood specimen (specimen) 05/03/2017 10:11 AM CDT 05/03/2017 10:11 AM CDT Result Melany Goodwin MD LAB BLOOD ORDERABLES Final Res ult Performing Organization Address [facility] de Phone Number [facility] [phone] [place] [address] * TSH (05/03/2017 10:11 AM CDT) Thyroid Stimulating Hormone 1.89 0.45 - 5.33 mcIUnit/mL [facility] Blood specimen (specimen) 05/03/2017 10:11 AM CDT 05/03/2017 10:11 AM CDT Dyana Goodwin MD LAB BLOOD ORDERABLES Final Res ult Performing Organization Address City/[facility]/ZIP Co de Phone Number BRANN[facility] [address] [place] [address] * Testosterone (05/03/2017 10:11 AM CDT) Testosterone 45 10 - 75 ng/dL [facility] Blood specimen (specimen) 05/03/2017 10:11 AM CDT 05/03/2017 10:11 AM CDT Dyana Goodwin MD LAB BLOOD ORDERABLES Final Res ult Performing Organization Address City/[facility] Co de Phone Number [facility] [phone] [place] [address] * DISCHARGE LABORATORY CUMULATIVE REPORT (05/03/2017 12:00 AM CDT) Narrative 05/03/2017 12:00 AM CDT Ordered by an unspecified provider. Historical Provider LAB BLOOD ORDERABLES Catina l Result documented in this encounter Visit Diagnoses Not on filedocumented in this encounter Care Teams Yeast Culture Operator Relationship Specialty Start Date End Date Wesley Hardy MD [address] [place] [address] PCP - General Infectious Diseases 04/20/17 documented as of this encounter
== END 2024-07-13 15:17 | disposition home or self-care (01) ==
LOC: ANHIMG 15:18
PROVIDERS: PCP Family Medicine; Visit Provider Family Medicine
DX: Z12.31 Encounter for screening mammogram for malignant neoplasm of breast (principal)
CPT/HCPCS: 77063; 77067